=== PATIENT | male | born 1990 | race Caucasian/White ===

== ENCOUNTER 2016-11-16 05:48 | Emergency (ER) | payer SELFPAY ==
[2016-11-16] MEDS ORDERED: NORMAL SALINE 1000 ML 1,000 ML IV ONE (06:12)
[2016-11-16] MEDS ORDERED: ONDANSETRON HCL INJ/PF 4 MG/2 ML SDV IV ONE (06:12)
[2016-11-16 06:45] LABS: ABSOLUTE BASOPHILS # (AUTO) 0.1 10^3/uL (0.0-0.2); ABSOLUTE EOSINOPHILS # (AUTO) 0.2 10^3/uL (0.0-0.6); ABSOLUTE LYMPHOCYTES (AUTO) 2.6 10^3/uL (0.5-4.7); ABSOLUTE MONOCYTES (AUTO) 0.7 10^3/uL (0.1-1.4); ABSOLUTE NEUT (AUTO) 3.7 10^3/uL (1.7-8.2); BASOPHILS % (AUTO) 0.7 % (0-2); EOSINOPHILS % (AUTO) 2.7 % (0-6); HEMATOCRIT 44.7 % (37.9-51.0); HEMOGLOBIN 15.3 g/dL (13.5-17.0); HGB HCT DIFFERENCE 1.2; LYMPHOCYTES % (AUTO) 35.7 % (13-45); MEAN CORPUSCULAR HEMOGLOBIN 29.9 pg (27.0-33.4); MEAN CORPUSCULAR HGB CONC 34.2 g/dL (32.0-36.0); MEAN CORPUSCULAR VOLUME 88 fl (80-97); MONOCYTES % (AUTO) 10.1 % (3-13); RED BLOOD COUNT 5.11 10^6/uL (4.35-5.55); RED CELL DISTRIBUTION WIDTH 12.9 % (11.5-14.0); SEGMENTED NEUTROPHILS % (AUTO) 50.8 % (42-78); WHITE BLOOD COUNT 7.2 10^3/uL (4.0-10.5)
[2016-11-16 07:01] LABS: ALANINE AMINOTRANSFERASE 147 U/L (21-72); ALBUMIN 4.1 g/dL (3.5-5.0); ALKALINE PHOSPHATASE 64 U/L (38-126); ANION GAP 12 (5-19); ASPARTATE AMINO TRANSFERASE 61 U/L (17-59); BILIRUBIN,DIRECT 0.3 mg/dL (0.0-0.4); BILIRUBIN,TOTAL 0.6 mg/dL (0.2-1.3); BLOOD UREA NITROGEN 12 mg/dL (7-20); CALCIUM 9.2 mg/dL (8.4-10.2); CARBON DIOXIDE 26 mmol/L (22-30); CHLORIDE 104 mmol/L (98-107); CREATININE RESULT 0.71 mg/dL (0.52-1.25); GLUCOSE 95 mg/dL (75-110); LIPASE 243.1 U/L (23-300); POTASSIUM 4.3 mmol/L (3.6-5.0); SODIUM 141.8 mmol/L (137-145); TOTAL PROTEIN 7.1 g/dL (6.3-8.2)
--- NOTE | 2016-11-16 07:18 | ER Document Report ---
ED General - General Chief Complaint: Nausea/Vomiting/Diarrhea Stated Complaint: VOMITING Mode of Arrival: Ambulatory Information source: Patient Notes: 26 yr old male hx of hep c presents with complaints of nausea vomiting 5x and diarrhea. pt denies any blood, admits to mild cramping. TRAVEL OUTSIDE OF THE [place] IN LAST 30 DAYS: No - HPI Onset: Yesterday Onset/Duration: Sudden Quality of pain: Cramping Severity: Mild Pain Level: Denies Associated symptoms: Diarrhea, Nausea, Vomiting Exacerbated by: Denies Relieved by: Denies Similar symptoms previously: No Recently seen / treated by doctor: No - Related Data Allergies/Adverse Reactions: No Known Allergies Allergy (Verified 07/05/16 11:59) Past Medical History - Social History Smoking Status: Former Smoker Cigarette use (# per day): No Chew tobacco use (# tins/day): No Smoking Education Provided: No Frequency of alcohol use: Social Drug Abuse: Marijuana Family History: DM, Hypertension. denies: Arthritis, CAD, COPD, CVA, Hyperlipidemia, Malignancy, Thyroid Disfunction Patient has suicidal ideation: No Patient has homicidal ideation: No Renal/ Medical History: Denies: Hx Peritoneal Dialysis GI Medical History: Reports: Hx Hepatitis - hep c Psychiatric Medical History: Reports: Hx Attention Deficit Hyperactivity Disorder Infectious Medical History: Reports: Hx Hepatitis - hep c Past Surgical History: Reports: Hx Oral Surgery - Immunizations Immunizations up to date: No Hx Diphtheria, Pertussis, Tetanus Vaccination: No Review of Systems - Review of Systems Notes: REVIEW OF SYSTEMS: CONSTITUTIONAL : Denies fever, chills, or sweats. Denies recent illness. EENT: Denies eye, ear, throat, or mouth pain or symptoms. Denies nasal or sinus congestion or discharge. Denies throat, tongue, or mouth swelling or difficulty swallowing. CARDIOVASCULAR: Denies chest pain. Denies palpitations or racing or irregular heart beat. Denies ankle edema. RESPIRATORY: Denies cough, cold, or chest congestion. Denies shortness of breath, difficulty breathing, or wheezing. GASTROINTESTINAL: Nausea vomiting diarrhea GENITOURINARY: Denies difficulty urinating, painful urination, burning, frequency, blood in urine, or discharge. MUSCULOSKELETAL: Denies back or neck pain or stiffness. Denies joint pain or swelling. SKIN: Denies rash, lesions or sores. HEMATOLOGIC : Denies easy bruising or bleeding. LYMPHATIC: Denies swollen, enlarged glands. NEUROLOGICAL: Denies confusion or altered mental status. Denies passing out or loss of consciousness. Denies dizziness or lightheadedness. Denies headache. Denies weakness or paralysis or loss of use of either side. Denies problems with gait or speech. Denies sensory loss, numbness, or tingling. Denies seizures. PSYCHIATRIC: Denies anxiety or stress. Denies depression, suicidal ideation, or homicidal ideation. ALL OTHER SYSTEMS REVIEWED AND NEGATIVE. Dictation was performed using [employer] voice recognition software PHYSICAL EXAMINATION: GENERAL: Well-appearing, well-nourished and in no acute distress. HEAD: Atraumatic, normocephalic. EYES: Pupils equal round and reactive to light, extraocular movements intact, sclera anicteric, conjunctiva are normal. ENT: Nares patent, oropharynx clear without exudates. Moist mucous membranes. NECK: Normal range of motion, supple without lymphadenopathy LUNGS: Breath sounds clear to auscultation bilaterally and equal. No wheezes rales or rhonchi. HEART: Regular rate and rhythm without murmurs ABDOMEN: Soft, nontender, nondistended abdomen. No guarding, no rebound. No masses appreciated. Musculoskeletal: Normal range of motion, no pitting or edema. No cyanosis. NEUROLOGICAL: Cranial nerves grossly intact. Normal speech, normal gait. Normal sensory, motor exams PSYCH: Normal mood, normal affect. SKIN: Warm, Dry, normal turgor, no rashes or lesions noted. Physical Exam - Vital signs Vitals: Temp Pulse Resp BP Pulse Ox 97.5 F 82 18 131/88 H 98 11/16/16 05:58 11/16/16 05:58 11/16/16 05:58 11/16/16 05:58 11/16/16 05:58 Course - Re-evaluation Re-evalutation: 11/16/16 07:16 Patient looks extremely well, was given Zofran which resulted vomiting. Patient states he feels much better with IV fluids. Lab work does note mild elevation of liver enzymes consistent with history of hepatitis. Patient will be given GI follow-up regarding this After performing a Medical Screening Examination, I estimate there is LOW risk for ACUTE APPENDICITIS, BOWEL OBSTRUCTION, ACUTE CHOLECYSTITIS, PERFORATED DIVERTICULITIS, INCARCERATED HERNIA, PANCREATITIS, or PERFORATED ULCER, thus I consider the discharge disposition reasonable. Also, there is no evidence or peritonitis, sepsis, or toxicity. The patient and I have discussed the diagnosis and risks, and we agree with discharging home with close follow-up with the understanding that symptoms and presentations can change. We also discussed returning to the Emergency Department immediately if new or worsening symptoms occur. We have discussed the symptoms which are most concerning (e.g., bloody stool, fever, changing or worsening pain, intractable vomiting - standard verbal up date) that necessitate immediate return. - Vital Signs Vital signs: Temp Pulse Resp BP Pulse Ox 97.5 F 82 18 131/88 H 98 11/16/16 05:58 11/16/16 05:58 11/16/16 05:58 11/16/16 05:58 11/16/16 05:58 - Laboratory Result Diagrams: 11/16/16 06:25 11/16/16 06:25 Laboratory results interpreted by me: 11/16/16 06:25 AST 61 H ALT 147 H Discharge - Discharge Clinical Impression: Nausea vomiting and diarrhea, Elevated liver enzymes Condition: Stable Disposition: HOME, SELF-CARE Instructions: Diarrhea, Nonspecific ([facility]), Antinausea Medication ([facility]) Additional Instructions: Follow up with your physician tomorrow for further care or return to the ED IMMEDIATELY if symptoms worsen or new concerns occur. If you cannot afford to follow up with your primary care physician a list of low cost clinics have been provided at the end of your discharge papers as well. Prescriptions: Ondansetron [Zofran Odt 4 mg Tablet] 1 - 2 tab PO Q4H PRN #15 tab.rapdis PRN Reason: For Nausea/Vomiting Referrals: SHANNON METZGER MD [ACTIVE STAFF] - Follow up tomorrow
[2016-11-16 07:49] VITALS: BP 142/94
== END 2016-11-16 07:48 | disposition home or self-care (01) ==
LOC: ER 05:48
DX: R74.8 Abnormal levels of other serum enzymes (principal); R11.2 Nausea with vomiting, unspecified; R19.7 Diarrhea, unspecified; Z87.891 Personal history of nicotine dependence
CPT/HCPCS: 99284; 96374; 36415; 83690; 85025; 80053; J2405; J7030

== ENCOUNTER 2017-01-20 15:29 | Emergency (ER) | payer SELFPAY ==
[2017-01-20 15:53] VITALS: BP 153/101
--- NOTE | 2017-01-20 15:53 | ER Document Report ---
ED General - General Stated Complaint: DIARRHEA,ABDOMINAL PAIN,VOMITING Time Seen by Provider: 01/20/17 15:48 Mode of Arrival: Ambulatory Information source: Patient Notes: Patient presents emergency department with complaints of nausea vomiting diarrhea since Friday. Reports he has not vomited since this morning and reports diarrhea is better. He also reports that he called out sick for the last couple days and he needs a work note. Denies abdominal pain. Denies fever. Reports he ate at [employer] on Friday and started having the symptoms started. TRAVEL OUTSIDE OF THE [place] IN LAST 30 DAYS: No - HPI Onset: Other - friday Quality of pain: No pain Severity: None Pain Level: Denies Associated symptoms: Diarrhea, Nausea, Vomiting Exacerbated by: Denies Relieved by: Denies Similar symptoms previously: No Recently seen / treated by doctor: No - Related Data Allergies/Adverse Reactions: No Known Allergies Allergy (Verified 07/05/16 11:59) Past Medical History - General Information source: Patient - Social History Smoking Status: Current Every Day Smoker Cigarette use (# per day): Yes Frequency of alcohol use: Occasional Drug Abuse: Marijuana Occupation: [employer] Lives with: Friend Family History: DM, Hypertension. denies: Arthritis, CAD, COPD, CVA, Hyperlipidemia, Malignancy, Thyroid Disfunction Renal/ Medical History: Denies: Hx Peritoneal Dialysis GI Medical History: Reports: Hx Hepatitis - hep c Psychiatric Medical History: Reports: Hx Attention Deficit Hyperactivity Disorder Infectious Medical History: Reports: Hx Hepatitis - hep c Past Surgical History: Reports: Hx Oral Surgery - Immunizations Immunizations up to date: No Hx Diphtheria, Pertussis, Tetanus Vaccination: No Review of Systems - Review of Systems Notes: Review HPI for review of systems., All other systems negative Physical Exam - Vital signs Vitals: Temp Pulse Resp BP Pulse Ox 98.0 F 101 H 18 153/101 H 99 01/20/17 15:52 01/20/17 15:52 01/20/17 15:52 01/20/17 15:52 01/20/17 15:52 - Notes Notes: PHYSICAL EXAMINATION: GENERAL: Well-appearing and in no acute distress HEAD: Atraumatic, normocephalic. EYES: Pupils equal round extraocular movements intact, sclera anicteric, conjunctiva are normal. ENT: nares patent, . Moist mucous membranes. NECK: Normal range of motion, supple without lymphadenopathy LUNGS: CTAB and equal. No wheezes rales or rhonchi. HEART: Regular rate and rhythm without murmurs ABDOMEN: Soft, no tenderness. No guarding, no rebound EXTREMITIES: Normal range of motion, no pitting edema. No cyanosis. NEUROLOGICAL: Cranial nerves grossly intact. Normal sensory/motor exams. PSYCH: Normal mood, normal affect. SKIN: Warm, Dry, normal turgor, no rashes or lesions noted Course - Re-evaluation Re-evalutation: 01/20/17 lft slightly elevated. pt was doing great upon discharge. no further vomiting/ diarrhea. pt was instructed to return for concerns. - Vital Signs Vital signs: Temp Pulse Resp BP Pulse Ox 98.0 F 101 H 18 153/101 H 99 01/20/17 15:52 01/20/17 15:52 01/20/17 15:52 01/20/17 15:52 01/20/17 15:52 - Laboratory Result Diagrams: 01/20/17 16:04 01/20/17 16:04 Laboratory results interpreted by me: 01/20/17 16:04 AST 85 H ALT 185 H Discharge - Discharge Clinical Impression: Nausea vomiting and diarrhea, Elevated blood pressure reading Condition: Stable Disposition: HOME, SELF-CARE Instructions: Diarrhea, Nonspecific ([facility]), Vomiting ([facility]) Additional Instructions: *You have been evaluated for nausea/vomiting/diarrhea *Over the counter anti-diarrheal as indicated *Ensure adequate fluid intake as discussed to prevent dehydration *Follow up with a primary care provider within 5 days for recheck *Return to ED for worsening condition, changes, needs, concerns Monitor your blood pressure. Your blood pressure was elevated today. This may be because you were anxious, in pain or because you need medication. It is important to follow up with your primary care provider for full evaluation. Forms: Elevated Blood Pressure, Return to Work
[2017-01-20 16:18] LABS: ABSOLUTE BASOPHILS # (AUTO) 0.1 10^3/uL (0.0-0.2); ABSOLUTE EOSINOPHILS # (AUTO) 0.1 10^3/uL (0.0-0.6); ABSOLUTE LYMPHOCYTES (AUTO) 2.4 10^3/uL (0.5-4.7); ABSOLUTE MONOCYTES (AUTO) 0.7 10^3/uL (0.1-1.4); ABSOLUTE NEUT (AUTO) 5.2 10^3/uL (1.7-8.2); BASOPHILS % (AUTO) 0.8 % (0-2); EOSINOPHILS % (AUTO) 0.9 % (0-6); HEMATOCRIT 46.9 % (37.9-51.0); HGB HCT DIFFERENCE 1.1; MEAN CORPUSCULAR HEMOGLOBIN 29.8 pg (27.0-33.4); MEAN CORPUSCULAR VOLUME 88 fl (80-97); MONOCYTES % (AUTO) 8.2 % (3-13); RED BLOOD COUNT 5.35 10^6/uL (4.35-5.55); RED CELL DISTRIBUTION WIDTH 12.9 % (11.5-14.0); SEGMENTED NEUTROPHILS % (AUTO) 62.1 % (42-78); WHITE BLOOD COUNT 8.4 10^3/uL (4.0-10.5)
[2017-01-20 16:20] LABS: APPEARANCE,URINE SLIGHTLY-CLOUDY; BILIRUBIN,URINE NEGATIVE (NEGATIVE); GLUCOSE, URINE NEGATIVE (NEGATIVE); KETONES,URINE NEGATIVE (NEGATIVE); LEUKOCYTE ESTERASE,URINE NEGATIVE (NEGATIVE); NITRITE,URINE NEGATIVE (NEGATIVE); PROTEIN,URINE NEGATIVE (NEGATIVE); URINE SPECIFIC GRAVITY 1.016; UROBILINOGEN,URINE NEGATIVE mg/dL (<2.0)
[2017-01-20 16:35] LABS: ALANINE AMINOTRANSFERASE 185 U/L (21-72); ALBUMIN 4.5 g/dL (3.5-5.0); ALKALINE PHOSPHATASE 62 U/L (38-126); ANION GAP 11 (5-19); ASPARTATE AMINO TRANSFERASE 85 U/L (17-59); BILIRUBIN,DIRECT 0.3 mg/dL (0.0-0.4); BILIRUBIN,TOTAL 0.6 mg/dL (0.2-1.3); BLOOD UREA NITROGEN 9 mg/dL (7-20); CALCIUM 9.9 mg/dL (8.4-10.2); CARBON DIOXIDE 28 mmol/L (22-30); CHLORIDE 100 mmol/L (98-107); CREATININE RESULT 0.76 mg/dL (0.52-1.25); GLUCOSE 103 mg/dL (75-110); POTASSIUM 4.2 mmol/L (3.6-5.0); SODIUM 139.3 mmol/L (137-145); TOTAL PROTEIN 7.6 g/dL (6.3-8.2)
== END 2017-01-20 16:30 | disposition home or self-care (01) ==
LOC: ER 15:29
DX: R11.2 Nausea with vomiting, unspecified (principal); R19.7 Diarrhea, unspecified; F17.210 Nicotine dependence, cigarettes, uncomplicated; R03.0 Elevated blood-pressure reading, without diagnosis of hypertension; Z82.49 Family history of ischemic heart disease and other diseases of the circulatory system; Z86.19 Personal history of other infectious and parasitic diseases
CPT/HCPCS: 36415; 80053; 81001; 85025; 99284

== ENCOUNTER 2017-03-16 11:35 | Emergency (ER) | payer SELFPAY ==
[2017-03-16 12:02] VITALS: BP 145/83
--- NOTE | 2017-03-16 13:03 | RADIOLOGY REPORT (SQ) ---
EXAM DESCRIPTION: CHEST PA/LAT COMPLETED DATE/TIME: 03/16/2017 12:55 pm REASON FOR STUDY: chest wall pain COMPARISON: None. EXAM PARAMETERS: NUMBER OF VIEWS: two views TECHNIQUE: Digital Frontal and Lateral radiographic views of the chest acquired. RADIATION DOSE: NA LIMITATIONS: none FINDINGS: LUNGS AND PLEURA: No opacities, masses or pneumothorax. No pleural effusion. MEDIASTINUM AND HILAR STRUCTURES: No masses or contour abnormalities. HEART AND VASCULAR STRUCTURES: Heart normal size. No evidence for failure. BONES: No acute findings. HARDWARE: None in the chest. OTHER: No other significant finding. IMPRESSION: NO SIGNIFICANT RADIOGRAPHIC FINDING IN THE CHEST. TECHNICAL DOCUMENTATION: JOB ID: [id number] [employer]- All Rights Reserved
--- NOTE | 2017-03-16 13:11 | ER Document Report ---
ED General - General Chief Complaint: Chest Wall Injury Stated Complaint: PAINFUL KNOT ON CHEST/ABDOMEN Time Seen by Provider: 03/16/17 12:23 Notes: Patient is a 26-year-old male who presents emergency department complaining of tender area at the base of his xiphoid process for the past 2 days. Patient states that after work he came home and noticed a small bump on his abdomen that was nontender woke up the next day it was larger and then states that today has been causing him some discomfort with deep breaths and improves with exhaling. Patient denies any trauma. Patient states that the area is tender to deep palpation otherwise does not bother him. He states it is bigger at the end of his shift at work. 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 Admits to a history of GERD and takes over-the- counter Tums as needed. Past medical history significant for history of IV drug use with a history of hep C. Patient states that he has been clean for the past 3 years TRAVEL OUTSIDE OF THE [place] IN LAST 30 DAYS: No - Related Data Allergies/Adverse Reactions: No Known Allergies Allergy (Verified 03/16/17 12:02) Past Medical History - Social History Smoking Status: Current Every Day Smoker Family History: DM, Hypertension. denies: Arthritis, CAD, COPD, CVA, Hyperlipidemia, Malignancy, Thyroid Disfunction Patient has suicidal ideation: No Patient has homicidal ideation: No Renal/ Medical History: Denies: Hx Peritoneal Dialysis GI Medical History: Reports: Hx Hepatitis - hep c Psychiatric Medical History: Reports: Hx Attention Deficit Hyperactivity Disorder Infectious Medical History: Reports: Hx Hepatitis - hep c Past Surgical History: Reports: Hx Oral Surgery - Immunizations Immunizations up to date: No Hx Diphtheria, Pertussis, Tetanus Vaccination: No Review of Systems - Review of Systems Notes: REVIEW OF SYSTEMS: CONSTITUTIONAL : Denies fever, chills, or sweats. Denies recent illness. EENT: Denies eye, ear, throat, or mouth pain or symptoms. Denies nasal or sinus congestion or discharge. Denies throat, tongue, or mouth swelling or difficulty swallowing. CARDIOVASCULAR: Denies chest pain. Denies palpitations or racing or irregular heart beat. Denies ankle edema. RESPIRATORY: Denies cough, cold, or chest congestion. Denies shortness of breath, difficulty breathing, or wheezing. GASTROINTESTINAL: See HPI. Denies abdominal pain or distention. Denies nausea , vomiting, or diarrhea. Denies blood in vomitus, stools, or per rectum. Denies black, tarry stools. Denies constipation. SKIN: Denies rash, lesions or sores. HEMATOLOGIC : Denies easy bruising or bleeding. LYMPHATIC: Denies swollen, enlarged glands. NEUROLOGICAL: Denies confusion or altered mental status. Denies passing out or loss of consciousness. Denies dizziness or lightheadedness. Denies headache. Denies weakness or paralysis or loss of use of either side. Denies problems with gait or speech. Denies sensory loss, numbness, or tingling. Denies seizures. PSYCHIATRIC: Denies anxiety or stress. Denies depression, suicidal ideation, or homicidal ideation. ALL OTHER SYSTEMS REVIEWED AND NEGATIVE. Dictation was performed using [employer] voice recognition software Physical Exam - Vital signs Vitals: Temp Pulse Resp BP Pulse Ox 98.5 F 75 16 145/83 H 99 03/16/17 11:57 03/16/17 11:57 03/16/17 11:57 03/16/17 11:57 03/16/17 11:57 - Notes Notes: PHYSICAL EXAM GENERAL: Alert, interacts well. HEAD: Normocephalic, atraumatic. EYES: Pupils equal, round, and reactive to light. Extraocular movements intact. ENT: Oral mucosa moist, tongue midline. NECK: Full range of motion. Supple. Trachea midline. LUNGS: Clear to auscultation bilaterally, no wheezes, rales, or rhonchi. No respiratory distress. HEART: Regular rate and rhythm. No murmurs, gallops, or rubs. ABDOMEN: Soft, nondistended, nontender. Palpable, reducible bulge below the xiphoid process with minimal tenderness to palpation no evidence of overlying erythema, induration no guarding, rebound, or rigidity.. Bowel sounds present in all 4 quadrants. EXTREMITIES: Moves all 4 extremities spontaneously. No edema, radial and dorsalis pedis pulses 2/4 bilaterally. No cyanosis. NEUROLOGICAL: Alert and oriented x4. Normal speech. PSYCH: Normal affect, normal mood. SKIN: Warm, dry, normal turgor. No rashes or lesions noted. Course - Re-evaluation Re-evalutation: 03/16/17 13:57 Patient is a 26-year-old male who is hemodynamic stable, no acute distress and afebrile. Presentation and exam consistent with a non-incarcerated epigastric hernia. Patient educated on signs and symptoms to be aware of indicating return to the emergency department otherwise can follow-up with primary care. After performing a Medical Screening Examination, I estimate there is LOW risk for ACUTE APPENDICITIS, BOWEL OBSTRUCTION, ACUTE CHOLECYSTITIS, PERFORATED DIVERTICULITIS, INCARCERATED HERNIA, PANCREATITIS, PERFORATED ULCER, thus I consider the discharge disposition reasonable. Also, there is no evidence or peritonitis, sepsis, or toxicity. I have reevaluated this patient multiple times and no significant life threatening changes are noted. The patient and I have discussed the diagnosis and risks, and we agree with discharging home with close follow-up with the understanding that symptoms and presentations can change. We also discussed returning to the Emergency Department immediately if new or worsening symptoms occur. We have discussed the symptoms which are most concerning (e.g., bloody stool, fever, changing or worsening pain, vomiting) that necessitate immediate return. - Vital Signs Vital signs: Temp Pulse Resp BP Pulse Ox 98.5 F 75 16 145/83 H 99 03/16/17 11:57 03/16/17 11:57 03/16/17 11:57 03/16/17 11:57 03/16/17 11:57 - Diagnostic Test Radiology reviewed: Image reviewed, Reports reviewed Discharge - Discharge Clinical Impression: Epigastric hernia Condition: Good Disposition: HOME, SELF-CARE Instructions: Hernia ([facility]) Additional Instructions: Your symptoms today are consistent with an epigastric hernia. Please follow-up with a robotic machine operator listed on this paperwork Please return to the emergency department if you are not able to tolerate fluids or solids, severe pain or if your hernia is not reducible You can also start taking [id number] Pepcid for your esophageal reflux. Please be sure to review proper lifting technique. Make sure that you were exhaling as you lift anything heavy. You should also start taking a stool softener such as Colace/Docusate which is available [id number] so that you do not have to strain when you are having a bowel movement. Only take this medication your bowel movements are hard. Forms: Return to Work Referrals: [facility] [Provider Group] - Follow up as needed WILBER ERIC MD [ACTIVE STAFF] - Follow up as needed (Gastroenterology)
== END 2017-03-16 13:25 | disposition home or self-care (01) ==
LOC: ER 11:35
DX: K43.9 Ventral hernia without obstruction or gangrene (principal); K21.9 Gastro-esophageal reflux disease without esophagitis; F17.200 Nicotine dependence, unspecified, uncomplicated
CPT/HCPCS: 71020; 99283

== ENCOUNTER 2017-05-25 13:48 | Emergency (ER) | payer SELFPAY ==
[2017-05-25 14:16] VITALS: BP 133/90
[2017-05-25] MEDS ORDERED: MORPHINE SULFATE 10 MG/ML INJ IV ONE (14:32)
[2017-05-25] MEDS ORDERED: ONDANSETRON HCL INJ/PF 4 MG/2 ML SDV IV ONE (14:32)
[2017-05-25] MEDS ORDERED: NORMAL SALINE 1000 ML 1,000 ML IV PRN (14:32)
--- NOTE | 2017-05-25 14:35 | ER Document Report ---
ED Medical Screen (RME) - General Chief Complaint: Abdominal Pain Stated Complaint: SHORTNESS OF BREATH Time Seen by Provider: 05/25/17 14:22 Mode of Arrival: Ambulatory Information source: Patient TRAVEL OUTSIDE OF THE [place] IN LAST 30 DAYS: No - HPI Patient complains to provider of: Upper abdominal pain, radiating into chest with shortness of breath Onset: This morning Onset/Duration: Sudden Notes: 05/25/17 14:34 Patient is a 26-year-old male presenting to the emergency room today complaining of sensation of a lump in his epigastric region with pain in this area, that radiates up into his chest, when he woke up this morning he felt like he could not take a deep breath, he also feels his heart racing, has a history of epigastric abdominal pain with nausea and vomiting on a regular basis , he admits to drinking yesterday evening, as well as taking half a pill of Adderall that belonged to a friend of his, he also frequently smokes marijuana - Related Data Allergies/Adverse Reactions: No Known Allergies Allergy (Verified 05/25/17 14:12) Past Medical History - Social History Chew tobacco use (# tins/day): No Frequency of alcohol use: Occasional Drug Abuse: Marijuana, Prescription drugs Renal/ Medical History: Denies: Hx Peritoneal Dialysis GI Medical History: Reports: Hx Gastroesophageal Reflux Disease, Hx Hepatitis - hep c Psychiatric Medical History: Reports: Hx Attention Deficit Hyperactivity Disorder Infectious Medical History: Reports: Hx Hepatitis - hep c Past Surgical History: Reports: Hx Oral Surgery - Immunizations Immunizations up to date: No Hx Diphtheria, Pertussis, Tetanus Vaccination: No History of Influenza Vaccine for 05/2017 - 10/2017 Season: No Physical Exam - Vital signs Vitals: Temp Pulse Resp BP Pulse Ox 97.8 F 114 H 24 H 133/90 H 100 05/25/17 14:12 05/25/17 14:12 05/25/17 14:12 05/25/17 14:12 05/25/17 14:12 Course - Vital Signs Vital signs: Temp Pulse Resp BP Pulse Ox 97.8 F 114 H 24 H 133/90 H 100 05/25/17 14:12 05/25/17 14:12 05/25/17 14:12 05/25/17 14:12 05/25/17 14:12
[2017-05-25 15:30] LABS: APPEARANCE,URINE CLEAR; BILIRUBIN,URINE NEGATIVE (NEGATIVE); GLUCOSE, URINE NEGATIVE (NEGATIVE); KETONES,URINE 20 mg/dL (NEGATIVE); LEUKOCYTE ESTERASE,URINE NEGATIVE (NEGATIVE); NITRITE,URINE NEGATIVE (NEGATIVE); PROTEIN,URINE NEGATIVE (NEGATIVE); URINE SPECIFIC GRAVITY 1.021
--- NOTE | 2017-05-26 08:09 | EKG REPORT ---
SEVERITY:- OTHERWISE NORMAL ECG - SINUS TACHYCARDIA : Confirmed by: Cali Garcia 26-May-2017 08:08:48
== END 2017-05-25 15:20 | disposition left against medical advice (07) ==
LOC: ER 13:48
DX: R10.10 Upper abdominal pain, unspecified (principal); R06.02 Shortness of breath; K21.9 Gastro-esophageal reflux disease without esophagitis; Z86.19 Personal history of other infectious and parasitic diseases
CPT/HCPCS: 81001; 87086; 93005; 93010; 99281

== ENCOUNTER 2017-09-28 18:30 | Emergency (ER) | payer SELFPAY ==
[2017-09-28 18:41] VITALS: BP 138/86
--- NOTE | 2017-09-28 19:49 | ER Document Report ---
ED General - General Chief Complaint: Abdominal Pain Stated Complaint: UPPER ABDOMINAL PAIN Time Seen by Provider: 09/28/17 19:36 Mode of Arrival: Ambulatory Information source: Patient Notes: 27 yr old male presents with epigastric hernia of atleast 8 month duration that hurts most when he wakes up laying on his side. pt notes that when he sits up the pain is gone. he denies any fevers or chills, dneies any nausea or vomiting. pt has normal bm , last was today TRAVEL OUTSIDE OF THE [place] IN LAST 30 DAYS: No - HPI Onset: Other Onset/Duration: Waxing and waning Quality of pain: Achy Severity: Mild Pain Level: 1 Associated symptoms: Other Exacerbated by: Denies Relieved by: Denies Similar symptoms previously: Yes Recently seen / treated by doctor: Yes - Related Data Allergies/Adverse Reactions: No Known Allergies Allergy (Verified 05/25/17 14:12) Past Medical History - Social History Smoking Status: Former Smoker Cigarette use (# per day): No Chew tobacco use (# tins/day): No Smoking Education Provided: No Frequency of alcohol use: None Drug Abuse: Marijuana Family History: DM, Hypertension. denies: Arthritis, CAD, COPD, CVA, Hyperlipidemia, Malignancy, Thyroid Disfunction Patient has suicidal ideation: No Patient has homicidal ideation: No Renal/ Medical History: Denies: Hx Peritoneal Dialysis GI Medical History: Reports: Hx Gastroesophageal Reflux Disease, Hx Hepatitis - hep c Psychiatric Medical History: Reports: Hx Attention Deficit Hyperactivity Disorder Infectious Medical History: Reports: Hx Hepatitis - hep c Past Surgical History: Reports: Hx Oral Surgery - Immunizations Immunizations up to date: No Hx Diphtheria, Pertussis, Tetanus Vaccination: No Review of Systems - Review of Systems Notes: REVIEW OF SYSTEMS: CONSTITUTIONAL : Denies fever, chills, or sweats. Denies recent illness. EENT: Denies eye, ear, throat, or mouth pain or symptoms. Denies nasal or sinus congestion or discharge. Denies throat, tongue, or mouth swelling or difficulty swallowing. CARDIOVASCULAR: Denies chest pain. Denies palpitations or racing or irregular heart beat. Denies ankle edema. RESPIRATORY: Denies cough, cold, or chest congestion. Denies shortness of breath, difficulty breathing, or wheezing. GASTROINTESTINAL: epigastric abd pain GENITOURINARY: Denies difficulty urinating, painful urination, burning, frequency, blood in urine, or discharge. MUSCULOSKELETAL: Denies back or neck pain or stiffness. Denies joint pain or swelling. SKIN: Denies rash, lesions or sores. HEMATOLOGIC : Denies easy bruising or bleeding. LYMPHATIC: Denies swollen, enlarged glands. NEUROLOGICAL: Denies confusion or altered mental status. Denies passing out or loss of consciousness. Denies dizziness or lightheadedness. Denies headache. Denies weakness or paralysis or loss of use of either side. Denies problems with gait or speech. Denies sensory loss, numbness, or tingling. Denies seizures. PSYCHIATRIC: Denies anxiety or stress. Denies depression, suicidal ideation, or homicidal ideation. ALL OTHER SYSTEMS REVIEWED AND NEGATIVE. Dictation was performed using [employer] voice recognition software PHYSICAL EXAMINATION: GENERAL: Well-appearing, well-nourished and in no acute distress. HEAD: Atraumatic, normocephalic. EYES: Pupils equal round and reactive to light, extraocular movements intact, sclera anicteric, conjunctiva are normal. ENT: Nares patent, oropharynx clear without exudates. Moist mucous membranes. NECK: Normal range of motion, supple without lymphadenopathy LUNGS: Breath sounds clear to auscultation bilaterally and equal. No wheezes rales or rhonchi. HEART: Regular rate and rhythm without murmurs ABDOMEN: Soft, tender i nthe epigastric region, small protrusion noted, no obvious hernia strangulation Musculoskeletal: Normal range of motion, no pitting or edema. No cyanosis. NEUROLOGICAL: Cranial nerves grossly intact. Normal speech, normal gait. Normal sensory, motor exams PSYCH: Normal mood, normal affect. SKIN: Warm, Dry, normal turgor, no rashes or lesions noted. Physical Exam - Vital signs Vitals: Temp Pulse Resp BP Pulse Ox 98.2 F 70 18 138/86 H 100 09/28/17 18:40 09/28/17 18:40 09/28/17 18:40 09/28/17 18:40 09/28/17 18:40 Course - Re-evaluation Re-evalutation: 09/28/17 20:16 Given the patient's symptoms are waxing and waning are not associated with any vomiting of food and is able to eat with no difficulty very low suspicion for an obstruction secondary to this hernia, patient will be given follow-up with her surgeons as well as [facility] as well as information regarding low-cost care. Patient will be given pain control is otherwise stable for discharge After performing a Medical Screening Examination, I estimate there is LOW risk for ACUTE APPENDICITIS, BOWEL OBSTRUCTION, ACUTE CHOLECYSTITIS, PERFORATED DIVERTICULITIS, INCARCERATED HERNIA, PANCREATITIS, TESTICULAR TORSION or PERFORATED ULCER, thus I consider the discharge disposition reasonable. Also, there is no evidence or peritonitis, sepsis, or toxicity. I have reevaluated this patient multiple times and no significant life threatening changes are noted. The patient and I have discussed the diagnosis and risks, and we agree with discharging home with close follow-up with the understanding that symptoms and presentations can change. We also discussed returning to the Emergency Department immediately if new or worsening symptoms occur. We have discussed the symptoms which are most concerning (e.g., bloody stool, fever, changing or worsening pain, intractable vomiting - standard verbal up date) that necessitate immediate return. - Vital Signs Vital signs: Temp Pulse Resp BP Pulse Ox 98.2 F 70 18 138/86 H 100 09/28/17 18:40 09/28/17 18:40 09/28/17 18:40 09/28/17 18:40 09/28/17 18:40 Discharge - Discharge Clinical Impression: Epigastric hernia HTN (hypertension) Qualifiers: Hypertension type: essential hypertension Qualified Code(s): I10 - Essential ( primary) hypertension Condition: Stable Disposition: HOME, SELF-CARE Instructions: Hernia ([facility]) Additional Instructions: Please contact [facility] [phone] for information regarding surgical clinic Prescriptions: Hydrocodone/Acetaminophen [[place] 5-325 mg Tablet] 1 tab PO Q6 #14 tablet Forms: Return to Work Referrals: JEB QUICK MD [ACTIVE STAFF] - Follow up tomorrow
== END 2017-09-28 19:53 | disposition home or self-care (01) ==
LOC: ER 18:30
DX: K43.9 Ventral hernia without obstruction or gangrene (principal); I10 Essential (primary) hypertension; Z87.891 Personal history of nicotine dependence
CPT/HCPCS: 99283

== ENCOUNTER 2018-03-15 10:12 | Emergency (ER) | payer SELFPAY ==
[2018-03-15] MEDS ORDERED: MAG HYDROX/AL HYDROX/SIMETH SUSP 30 ML UDCUP PO ONE (10:46)
[2018-03-15] MEDS ORDERED: METOCLOPRAMIDE HCL ORAL SOLN 10 MG/10 ML UDCUP PO ONE (10:46)
[2018-03-15] MEDS ORDERED: LIDOCAINE 2% VISCOUS SOLN 20 ML UDCUP PO ONE (10:46)
--- NOTE | 2018-03-15 10:49 | ER Document Report ---
ED Medical Screen (RME) - General Mode of Arrival: Ambulatory Information source: Patient TRAVEL OUTSIDE OF THE [place] IN LAST 30 DAYS: No <BRITT DORSEY - Last Filed: 03/15/18 11:08> <BRENT BOLTON - Last Filed: 03/15/18 11:13> - General Chief Complaint: Abdominal Pain Stated Complaint: ABDOMINAL PAIN Time Seen by Provider: 03/15/18 10:40 Notes: Patient is a 27 year old male with hepatitis C and a hiatial hernia presents to the emergency department complaining of abdominal pain onset this morning. Patient describes his pain as excruciating sharp and stabbing pain that was exacerbated during a bowel movement this morning and coughing. Patinet mentions eating a fried chicken wrap and a deli sandwich yesterday. GENERAL: Alert, interacts well. No acute distress. HEAD: Normocephalic, Atraumatic. NECK: Full range of motion. Supple. Trachea midline. LUNGS: Clear to auscultation bilaterally, no wheezes, rales, or rhonchi. No respiratory distress. HEART: Regular rate and rhythm. No murmurs, gallops, or rubs. ABDOMEN: Soft, epigastric tenderness to palpation. Non-distended. Bowel sounds present in all 4 quadrants. EXTREMITIES: Moves all four extremities spontaneously. PSYCH: Normal affect, normal mood. I have greeted and performed a rapid initial assessment of this patient. A comprehensive ED assessment and evaluation of the patient, analysis of test results and completion of the medical decision making process will be conducted by additional ED providers. (BRITT DORSEY) - Related Data Allergies/Adverse Reactions: No Known Allergies Allergy (Verified 03/15/18 10:14) Past Medical History - General Information source: Patient - Social History Cigarette use (# per day): Yes Chew tobacco use (# tins/day): No Frequency of alcohol use: Occasional Drug Abuse: Heroin - Quit 4-5 years ago, Marijuana Family history: Reviewed & Not Pertinent Renal/ Medical History: Denies: Hx Peritoneal Dialysis GI Medical History: Reports: Hx Gastroesophageal Reflux Disease, Hx Hepatitis - hep c Psychiatric Medical History: Reports: Hx Attention Deficit Hyperactivity Disorder Infectious Medical History: Reports: Hx Hepatitis - hep c Past Surgical History: Reports: Hx Oral Surgery - Immunizations Immunizations up to date: No Hx Diphtheria, Pertussis, Tetanus Vaccination: No History of Influenza Vaccine for 05/2017 - 10/2017 Season: No <BRITT DORSEY - Last Filed: 03/15/18 11:08> - Vital signs Vitals: Temp Pulse Resp BP Pulse Ox 97.9 F 74 16 134/90 H 98 03/15/18 10:21 03/15/18 10:21 03/15/18 10:21 03/15/18 10:21 03/15/18 10:21 Course - Laboratory Result Diagrams: 03/15/18 10:55 03/15/18 10:55 <BRENT BOLTON - Last Filed: 03/15/18 11:13> - Vital Signs Vital signs: Temp Pulse Resp BP Pulse Ox 97.9 F 74 16 134/90 H 98 03/15/18 10:21 03/15/18 10:21 03/15/18 10:21 03/15/18 10:21 03/15/18 10:21
[2018-03-15] MEDS ORDERED: FAMOTIDINE 20 MG TABLET PO ONE (11:15)
[2018-03-15 11:22] LABS: ABSOLUTE BASOPHILS # (AUTO) 0.1 10^3/uL (0.0-0.2); ABSOLUTE EOSINOPHILS # (AUTO) 0.3 10^3/uL (0.0-0.6); ABSOLUTE LYMPHOCYTES (AUTO) 2.3 10^3/uL (0.5-4.7); ABSOLUTE MONOCYTES (AUTO) 0.8 10^3/uL (0.1-1.4); ABSOLUTE NEUT (AUTO) 4.8 10^3/uL (1.7-8.2); EOSINOPHILS % (AUTO) 3.4 % (0-6); HEMATOCRIT 45.8 % (37.9-51.0); HEMOGLOBIN 16.1 g/dL (13.5-17.0); LYMPHOCYTES % (AUTO) 27.6 % (13-45); MEAN CORPUSCULAR HEMOGLOBIN 31.2 pg (27.0-33.4); MEAN CORPUSCULAR HGB CONC 35.1 g/dL (32.0-36.0); MEAN CORPUSCULAR VOLUME 89 fl (80-97); MONOCYTES % (AUTO) 9.8 % (3-13); PLATELET COUNT 301 10^3/uL (150-450); RED BLOOD COUNT 5.16 10^6/uL (4.35-5.55); RED CELL DISTRIBUTION WIDTH 13.8 % (11.5-14.0); SEGMENTED NEUTROPHILS % (AUTO) 58.2 % (42-78); TOTAL CELLS COUNTED % (AUTO) 100 %; WHITE BLOOD COUNT 8.3 10^3/uL (4.0-10.5)
[2018-03-15 11:47] LABS: ALANINE AMINOTRANSFERASE 237 U/L (21-72); ALBUMIN 4.6 g/dL (3.5-5.0); ALKALINE PHOSPHATASE 77 U/L (38-126); ANION GAP 14 (5-19); ASPARTATE AMINO TRANSFERASE 91 U/L (17-59); BILIRUBIN,DIRECT 0.3 mg/dL (0.0-0.4); BILIRUBIN,TOTAL 0.4 mg/dL (0.2-1.3); BLOOD UREA NITROGEN 12 mg/dL (7-20); CARBON DIOXIDE 25 mmol/L (22-30); CHLORIDE 105 mmol/L (98-107); GLUCOSE 103 mg/dL (75-110); LIPASE 157.6 U/L (23-300); POTASSIUM 4.3 mmol/L (3.6-5.0); SODIUM 144.2 mmol/L (137-145); TOTAL PROTEIN 7.9 g/dL (6.3-8.2)
--- NOTE | 2018-03-15 12:14 | ER Document Report ---
ED General - General Chief Complaint: Abdominal Pain Stated Complaint: ABDOMINAL PAIN Time Seen by Provider: 03/15/18 10:40 Mode of Arrival: Ambulatory TRAVEL OUTSIDE OF THE [place] IN LAST 30 DAYS: No - HPI Notes: 27-year-old male presents with abdominal pain. Patient describes onset rapidly of epigastric pain while having a bowel movement. He was unsuccessful his bowel movement and the pain later abated but came back in the emergency department. Some nausea but no vomiting. He has had no dark tarry stools, no heavy use of NSAIDs or aspirin. He states he does not drink much alcohol and has not had any alcohol recently. No history of biliary tract disease. No history of liver disease. No other modifying factors, no other associated symptoms, no other provocative or palliative factors. Rapid onset, nonradiating except as described. Patient seen by the physician in triage and comes with labs ordered and medications given. 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 denies: Arthritis, CAD, COPD, CVA, Hyperlipidemia, Malignancy, Thyroid Disfunction Patient has suicidal ideation: No Patient has homicidal ideation: No - Medical History Medical History: Negative Renal/ Medical History: Denies: Hx Peritoneal Dialysis GI Medical History: Reports: Hx Gastroesophageal Reflux Disease, Hx Hepatitis - hep c Psychiatric Medical History: Reports: Hx Attention Deficit Hyperactivity Disorder Infectious Medical History: Reports: Hx Hepatitis - hep c Past Surgical History: Reports: Hx Oral Surgery - Immunizations Immunizations up to date: No Hx Diphtheria, Pertussis, Tetanus Vaccination: No Review of Systems - Review of Systems Notes: Review of systems as in the history of present illness, otherwise negative x 10 systems. Physical Exam - Vital signs Vitals: Temp Pulse Resp BP Pulse Ox 97.9 F 74 16 134/90 H 98 03/15/18 10:21 03/15/18 10:21 03/15/18 10:21 03/15/18 10:21 03/15/18 10:21 - Notes Notes: General: Well developed . HEENT: Normocephalic, atraumatic. Pupils equal round reactive to light. No JVD. Chest: No trauma. Respiratory: Good air exchange, normal excursion. Cardiac: Regular rhythm. No murmurs or gallops. Abdomen: Soft, benign. On distracted examination, no abdominal tenderness is noted. Back: No asymmetry or gross abnormality. Motor: Grossly normal power and tone. Neurologic: Alert, nonfocal. Cranial nerves II-12 are intact. Sensation intact. Vascular: Well perfused. Normal peripheral pulses. Skin: No petechiae or purpura. Course - Re-evaluation Re-evalutation: 03/15/18 12:14 Relatively well-appearing 27-year-old male the after mentioned symptoms. Labs are currently pending. Consider biliary tract disease, pancreatitis, peptic ulcer disease, gastritis or other etiology. We will proceed with serial examination, labs, additional H2 kenneth. Reassess. 03/15/18 15:03 Labs reviewed, grossly unremarkable. However, noted to have some mild LFT elevations. Ultrasound was obtained to exclude biliary tract disease, this is normal. Patient is discharged home, follow-up closely with his outpatient physician. - Vital Signs Vital signs: Temp Pulse Resp BP Pulse Ox 97.7 F 70 12 112/86 H 97 03/15/18 13:11 03/15/18 13:11 03/15/18 13:11 03/15/18 13:11 03/15/18 13:11 - Laboratory Result Diagrams: 03/15/18 10:55 03/15/18 10:55 Laboratory results interpreted by me: 03/15/18 10:55 AST 91 H ALT 237 H Discharge - Discharge Clinical Impression: Abdominal pain Qualifiers: Abdominal location: unspecified location Qualified Code(s): R10.9 - Unspecified abdominal pain Disposition: HOME, SELF-CARE Instructions: Abdominal Pain ([facility]) Prescriptions: Omeprazole Magnesium [Prilosec Otc] 20 mg PO DAILY #30 tablet.dr Forms: Return to Work Referrals: SHANNON METZGER MD [ACTIVE STAFF] - Follow up as needed
--- NOTE | 2018-03-15 13:05 | RADIOLOGY REPORT (SQ) ---
EXAM DESCRIPTION: U/S ABDOMEN LIMITED W/O DOP COMPLETED DATE/TIME: 03/15/2018 12:21 pm REASON FOR STUDY: RUQ Pain COMPARISON: None. TECHNIQUE: Dynamic and static grayscale images acquired of the abdomen and recorded on PACS. Additio nal selected color Doppler and spectral images recorded. LIMITATIONS: None. FINDINGS: PANCREAS: No abnormality seen. LIVER: The liver measures 16.6 cm. The liver demonstrates normal echogenicity. LIVER VASCULATURE: Normal directional flow of the main portal vein and hepatic veins. GALLBLADDER: The gallbladder is normal. The gallbladder wall measures 1.5 mm which is normal. ULTRASOUND-DETECTED PACHECO'S SIGN: Negative. INTRAHEPATIC DUCTS AND COMMON DUCT: CBD measures 5.9 mm which is normal. Intrahepatic ducts normal c aliber. No filling defects. INFERIOR VENA CAVA: Normal flow. AORTA: The proximal abdominal aorta measures 2.2 cm in AP diameter. The mid abdominal aorta measures 2.2 cm in diameter. The distal abdominal aorta is 1.9 cm in AP diameter. . RIGHT KIDNEY: The right kidney measures 11.8 x 4.7 by 4.5 cm demonstrating normal echogenicity. IMPRESSION: NORMAL RIGHT UPPER QUADRANT ULTRASOUND. TECHNICAL DOCUMENTATION: JOB ID: [id number] 2010 [employer]- All Rights Reserved Reading location - IP/workstation name: [email or web address]
[2018-03-15 13:12] VITALS: BP 112/86
== END 2018-03-15 13:10 | disposition home or self-care (01) ==
LOC: ER 10:12
DX: R10.13 Epigastric pain (principal); R11.0 Nausea; F12.10 Cannabis abuse, uncomplicated; R79.89 Other specified abnormal findings of blood chemistry; F17.210 Nicotine dependence, cigarettes, uncomplicated
CPT/HCPCS: 99284; 36415; 83690; 85025; 80053; 76705; J3490

== ENCOUNTER 2018-04-11 15:50 | Emergency (ER) | payer SELFPAY ==
[2018-04-11 15:54] VITALS: BP 121/73
[2018-04-11] MEDS ORDERED: HYDROXYZINE PAMOATE 25 MG CAPSULE PO ONE (16:18)
[2018-04-11] MEDS ORDERED: NORMAL SALINE 1000 ML 1,000 ML IV ONE (16:18)
--- NOTE | 2018-04-11 20:57 | ER Document Report ---
ED General - General Chief Complaint: Shortness Of Breath Stated Complaint: POSSIBLE TREMORS Time Seen by Provider: 04/11/18 16:12 TRAVEL OUTSIDE OF THE [place] IN LAST 30 DAYS: No - HPI Patient complains to provider of: Shortness of breath some tremors Notes: Patient coming in for the above-stated symptoms states he was working when symptoms started. Patient denies any history of anxiety in the past states he does smoke and does drink however this is only socially. Patient denies any smoking or drinking recently. Denies any other past medical history. Patient is resting comfortably upon my evaluation does look slightly anxious - Related Data Allergies/Adverse Reactions: No Known Allergies Allergy (Verified 04/11/18 15:54) Past Medical History - Social History Smoking Status: Current Some Day Smoker Drug Abuse: Marijuana Family History: DM, Hypertension. denies: Arthritis, CAD, COPD, CVA, Hyperlipidemia, Malignancy, Thyroid Disfunction Patient has suicidal ideation: No Patient has homicidal ideation: No Renal/ Medical History: Denies: Hx Peritoneal Dialysis GI Medical History: Reports: Hx Gastroesophageal Reflux Disease, Hx Hepatitis - hep c Psychiatric Medical History: Reports: Hx Attention Deficit Hyperactivity Disorder Infectious Medical History: Reports: Hx Hepatitis - hep c Past Surgical History: Reports: Hx Oral Surgery - Immunizations Immunizations up to date: No Hx Diphtheria, Pertussis, Tetanus Vaccination: No Review of Systems - Review of Systems Constitutional: No symptoms reported EENT: No symptoms reported Cardiovascular: No symptoms reported Respiratory: No symptoms reported Gastrointestinal: No symptoms reported Genitourinary: No symptoms reported Male Genitourinary: No symptoms reported Musculoskeletal: No symptoms reported Skin: No symptoms reported Hematologic/Lymphatic: No symptoms reported Neurological/Psychological: Anxiety -: Yes All other systems reviewed and negative Physical Exam - Vital signs Vitals: Temp Pulse Resp BP Pulse Ox 97.5 F 96 20 121/73 100 04/11/18 15:53 04/11/18 15:53 04/11/18 15:53 04/11/18 15:53 04/11/18 15:53 Interpretation: Normal - General General appearance: Appears well, Alert - HEENT Head: Normocephalic, Atraumatic Eyes: Normal Pupils: PERRL - Respiratory Respiratory status: No respiratory distress Chest status: Nontender Breath sounds: Normal Chest palpation: Normal - Cardiovascular Rhythm: Regular Heart sounds: Normal auscultation Murmur: No - Abdominal Inspection: Normal Distension: No distension Bowel sounds: Normal Tenderness: Nontender Organomegaly: No organomegaly - Back Back: Normal, Nontender - Extremities General upper extremity: Normal inspection, Nontender, Normal color, Normal ROM , Normal temperature General lower extremity: Normal inspection, Nontender, Normal color, Normal ROM , Normal temperature, Normal weight bearing. No: Yisel's sign - Neurological Neuro grossly intact: Yes Cognition: Normal Orientation: AAOx4 [place] Coma Scale Eye Opening: Spontaneous [place] Coma Scale Verbal: Oriented [place] Coma Scale Motor: Obeys Commands [place] Coma Scale Total: 15 Speech: Normal Motor strength normal: LUE, RUE, LLE, RLE Sensory: Normal - Psychological Associated symptoms: Normal affect, Normal mood - Skin Skin Temperature: Warm Skin Moisture: Dry Skin Color: Normal Course - Re-evaluation Re-evalutation: 04/11/18 20:56 Physical examination not reveal any worrisome issues as we will perform laboratory studies to evaluate any underlying causes patient was to perform a urinalysis patient did not want by the pit office at the time I presume the patient was going for his urinalysis however later after trying to find the patient we were unable to locate him. Eventually patient was [place] patient never returned to the ER therefore we marked the patient has eloped. - Vital Signs Vital signs: Temp Pulse Resp BP Pulse Ox 97.5 F 96 20 121/73 100 04/11/18 15:53 04/11/18 15:53 04/11/18 15:53 04/11/18 15:53 04/11/18 15:53 Discharge - Discharge Clinical Impression: Anxiety Disposition: ELOPED
== END 2018-04-11 16:15 | disposition left against medical advice (07) ==
LOC: ER 15:50
DX: F41.9 Anxiety disorder, unspecified (principal); R06.02 Shortness of breath; R25.1 Tremor, unspecified; F17.200 Nicotine dependence, unspecified, uncomplicated
CPT/HCPCS: 99281

== ENCOUNTER 2018-04-16 07:45 | Emergency (ER) | payer SELFPAY ==
[2018-04-16] MEDS ORDERED: KETOROLAC TROMETHAMINE INJ/PF 30 MG/1 ML SDV IV ONE (09:34)
--- NOTE | 2018-04-16 09:35 | ER Document Report ---
Doctor's Note Notes: 04/16/18 09:34 HPI: 27-year-old male to the emergency department for evaluation of right upper quadrant pain. Patient has been seen multiple times for the same thing. States that he gets pain in the right abdomen and right chest and then gets short of breath and has a panic attack. Had to have EMS come and evaluate him a few days ago. Patient felt fine and subsequently did not come to the hospital. Woke up this morning with right upper quadrant pain in panic attack. Has had an ultrasound in the past. Had chest x-ray and workup and everything was unremarkable recently. Does have a history of hepatitis C as well as intravenous drug use but denies any IV drug use for approximately 4 years but has abused prescription narcotics recently. Past medical history: Drug abuse, hepatitis C Past surgical history: Denies any surgeries other than dental surgery Social history: Denies any alcohol or illicit drug use. Has a remote history of heroin abuse and prescription narcotic abuse. Does smoke cigarettes. Family history: Reviewed and unremarkable Review of systems: Constitutional: denies: Chills, Diaphoresis, Fever, Malaise, Weakness EENT: denies: Eye discharge, Blurred vision, Tearing, Double vision, Nose congestion, Nose discharge, Throat swelling, Mouth pain Cardiovascular: denies: Palpitations, Heart racing, Orthopnea, Dyspnea, Chest pain Respiratory: denies: Cough, Hurts to breathe, Wheezing, Shortness of breath Gastrointestinal: Has a history of hiatal hernia with right upper quadrant pain , no nausea or vomiting Genitourinary: denies: Burning, Dysuria, Discharge, Frequency, Flank pain, Hematuria Musculoskeletal: denies: Joint pain, Joint swelling, Muscle pain, Muscle stiffness, back pain Hematologic/Lymphatic: denies: Anemia, Easy bleeding, Easy bruising, Blood clots Neurological/Psychological: denies: Confusion, Dementia, Depression, Loss of consciousness. Does have a history of ADHD and drug abuse with frequent panic attacks Skin: No lesions, no masses, no skin breakdown, no abscesses Physical exam: General: Alert no acute distress HEENT: Atraumatic, normocephalic, pupils equal round react to light and accommodation, extraocular muscles are intact, nose is non tender, posterior pharynx is without erythema or exudate. Tongue is unremarkable Heart: Heart with regular rate and rhythm, no murmurs, no rubs, no clicks Lungs: Lungs clear to auscultation bilaterally, no wheezes, rhonchi, rales Abdomen: Abdomen is soft, nontender, nondistended, normal bowel sounds Neuro: cranial nerves II through XII intact, reflexes intact, sensation intact, Extremities:Moving all extremities. Equal strength bilaterally in the upper lower extremities. No significant deformity Skin: No lesions. Skin intact Psych: Normal insight. Normal judgment 04/16/18 09:37 Discharge - Discharge Clinical Impression: Abdominal pain Qualifiers: Abdominal location: unspecified location Qualified Code(s): R10.9 - Unspecified abdominal pain Condition: Good Disposition: HOME, SELF-CARE Instructions: Abdominal Pain ([facility]) Additional Instructions: Please follow-up with a regular doctor to have this reevaluated. There does not appear to be anything acute today. Uncertain etiology of why you are having these panic attacks and right upper quadrant pain however you do have hepatitis C. Your liver is in the right upper quadrant and this could be causing some intermittent pain. It will be very important that you follow-up with the seat coverer on a primary care doctor to have these symptoms evaluated. In the event that you are having worsening symptoms please return. Forms: Work Clearance, Return to Work Course - Re-evaluation Re-evalutation: 04/16/18 11:29 Laboratory 04/16/18 04/16/18 08:44 08:44 WBC 5.3 RBC 5.31 Hgb 16.3 Hct 47.0 MCV 89 MCH 30.7 MCHC 34.7 RDW 13.1 Plt Count 262 Seg Neutrophils % 46.6 Lymphocytes % 36.4 Monocytes % 13.3 H Eosinophils % 2.8 Basophils % 0.9 Absolute Neutrophils 2.5 Absolute Lymphocytes 1.9 Absolute Monocytes 0.7 Absolute Eosinophils 0.1 Absolute Basophils 0.0 Sodium 140.0 Potassium 4.3 Chloride 105 Carbon Dioxide 25 Anion Gap 10 BUN 15 Creatinine 0.64 Est GFR ( Amer) > 60 Est GFR (Non-Af Amer) > 60 Glucose 91 Calcium 9.8 Total Bilirubin 0.7 Direct Bilirubin 0.3 Neonat Total Bilirubin Not Reportable Neonat Direct Bilirubin Not Reportable Neonat Indirect Bili Not Reportable AST 90 H ALT 161 H Alkaline Phosphatase 66 Total Protein 8.1 Albumin 4.7 Lipase 130.5 Abdomen Ultrasound 04/16/18 09:34 IMPRESSION: NORMAL RIGHT UPPER QUADRANT ULTRASOUND. PANCREAS OBSCURED BY GAS. Labs are normal once again. Ultrasound unremarkable. No acute distress. Likely this for presents patient's underlying hepatitis issues. - Laboratory Result Diagrams: 04/16/18 08:44 04/16/18 08:44 Laboratory results interpreted by me: 04/16/18 04/16/18 08:44 08:44 Monocytes % 13.3 H AST 90 H ALT 161 H
[2018-04-16 09:50] LABS: ABSOLUTE EOSINOPHILS # (AUTO) 0.1 10^3/uL (0.0-0.6); ABSOLUTE LYMPHOCYTES (AUTO) 1.9 10^3/uL (0.5-4.7); ABSOLUTE MONOCYTES (AUTO) 0.7 10^3/uL (0.1-1.4); ABSOLUTE NEUT (AUTO) 2.5 10^3/uL (1.7-8.2); BASOPHILS % (AUTO) 0.9 % (0-2); EOSINOPHILS % (AUTO) 2.8 % (0-6); HEMOGLOBIN 16.3 g/dL (13.5-17.0); LYMPHOCYTES % (AUTO) 36.4 % (13-45); MEAN CORPUSCULAR HEMOGLOBIN 30.7 pg (27.0-33.4); MEAN CORPUSCULAR HGB CONC 34.7 g/dL (32.0-36.0); MEAN CORPUSCULAR VOLUME 89 fl (80-97); MONOCYTES % (AUTO) 13.3 % (3-13); PLATELET COUNT 262 10^3/uL (150-450); RED BLOOD COUNT 5.31 10^6/uL (4.35-5.55); RED CELL DISTRIBUTION WIDTH 13.1 % (11.5-14.0); SEGMENTED NEUTROPHILS % (AUTO) 46.6 % (42-78); TOTAL CELLS COUNTED % (AUTO) 100 %; WHITE BLOOD COUNT 5.3 10^3/uL (4.0-10.5)
[2018-04-16 10:27] LABS: ALANINE AMINOTRANSFERASE 161 U/L (21-72); ALBUMIN 4.7 g/dL (3.5-5.0); ALKALINE PHOSPHATASE 66 U/L (38-126); ANION GAP 10 (5-19); ASPARTATE AMINO TRANSFERASE 90 U/L (17-59); BILIRUBIN,DIRECT 0.3 mg/dL (0.0-0.4); BILIRUBIN,TOTAL 0.7 mg/dL (0.2-1.3); BLOOD UREA NITROGEN 15 mg/dL (7-20); CALCIUM 9.8 mg/dL (8.4-10.2); CARBON DIOXIDE 25 mmol/L (22-30); CHLORIDE 105 mmol/L (98-107); GLUCOSE 91 mg/dL (75-110); LIPASE 130.5 U/L (23-300); POTASSIUM 4.3 mmol/L (3.6-5.0); TOTAL PROTEIN 8.1 g/dL (6.3-8.2)
--- NOTE | 2018-04-16 10:30 | RADIOLOGY REPORT (SQ) ---
EXAM DESCRIPTION: U/S ABDOMEN LIMITED W/O DOP COMPLETED DATE/TIME: 04/16/2018 10:17 am REASON FOR STUDY: RUQ pain COMPARISON: None. TECHNIQUE: Dynamic and static grayscale images acquired of the right upper quadrant and recorded on PACS. Additional selected color Doppler and spectral images recorded. LIMITATIONS: Study limited due to acoustical interference from fat or from air in the bowel. FINDINGS: PANCREAS: Obscured. LIVER: No masses. Echotexture normal. LIVER VASCULATURE: Normal directional flow of the main portal vein and hepatic veins. GALLBLADDER: No stones. Normal wall thickness. No pericholecystic fluid. ULTRASOUND-DETECTED PACHECO'S SIGN: Negative. INTRAHEPATIC DUCTS AND COMMON DUCT: CBD and intrahepatic ducts normal caliber. No filling defects. INFERIOR VENA CAVA: Normal flow. AORTA: No aneurysm. RIGHT KIDNEY: Normal size. Normal echogenicity. No solid or suspicious masses. No hydronephrosis. No calcifications. PERITONEAL CAVITY AND RIGHT PLEURAL SPACE: No ascites or effusions. OTHER: No hernia identified. IMPRESSION: NORMAL RIGHT UPPER QUADRANT ULTRASOUND. PANCREAS OBSCURED BY GAS. TECHNICAL DOCUMENTATION: JOB ID: [id number] [employer]- All Rights Reserved Reading location - IP/workstation name: [email or web address]
[2018-04-16 12:10] VITALS: BP 119/82
== END 2018-04-16 12:15 | disposition home or self-care (01) ==
LOC: ER 07:45
DX: R10.11 Right upper quadrant pain (principal); F41.0 Panic disorder [episodic paroxysmal anxiety]; Z87.19 Personal history of other diseases of the digestive system
CPT/HCPCS: 36415; 76705; 80053; 83690; 85025; 96374; 99284

== ENCOUNTER 2018-06-26 10:38 | Emergency (ER) | payer SELFPAY ==
--- NOTE | 2018-06-26 11:52 | ER Document Report ---
ED General - General Chief Complaint: Suicidal Ideation Stated Complaint: PSYCH EVAL Time Seen by Provider: 06/26/18 10:56 Notes: This is a 27-year-old male to the emergency department for evaluation of suicidal ideation. Patient states that he has recently gotten addicted to narcotics. As recently as about 6 months ago. States that this time he has started using heroin. Has been using heroin now for several months. Does not want to do this anymore. Cannot seem to stop. States that he has disappointed everyone in his life and just feels hopeless and wants to . Wants help for both this suicidal ideation and heroin addiction. TRAVEL OUTSIDE OF THE [place] IN LAST 30 DAYS: No - HPI Onset/Duration: Gradual Quality of pain: No pain - Related Data Allergies/Adverse Reactions: No Known Allergies Allergy (Verified 04/11/18 15:54) Past Medical History - General Information source: Patient - Social History Smoking Status: Current Every Day Smoker Chew tobacco use (# tins/day): No Frequency of alcohol use: None Drug Abuse: Heroin, Marijuana, Prescription drugs Family History: DM, Hypertension. denies: Arthritis, CAD, COPD, CVA, Hyperlipidemia, Malignancy, Thyroid Disfunction Patient has suicidal ideation: Yes Patient has homicidal ideation: No Renal/ Medical History: Denies: Hx Peritoneal Dialysis GI Medical History: Reports: Hx Gastroesophageal Reflux Disease, Hx Hepatitis - hep c Psychiatric Medical History: Reports: Hx Attention Deficit Hyperactivity Disorder Infectious Medical History: Reports: Hx Hepatitis - hep c Past Surgical History: Reports: Hx Oral Surgery - Immunizations Immunizations up to date: No Hx Diphtheria, Pertussis, Tetanus Vaccination: No Review of Systems - Review of Systems Notes: Constitutional: denies: Chills, Diaphoresis, Fever, Malaise, Weakness EENT: denies: Eye discharge, Blurred vision, Tearing, Double vision, Nose congestion, Nose discharge, Throat swelling, Mouth pain Cardiovascular: denies: Palpitations, Heart racing, Orthopnea, Dyspnea, Chest pain Respiratory: denies: Cough, Hurts to breathe, Wheezing, Shortness of breath Gastrointestinal: denies: Abdominal pain, Diarrhea, Nausea, Vomiting, Black stools, bright red blood in stool Genitourinary: denies: Burning, Dysuria, Discharge, Frequency, Flank pain, Hematuria Musculoskeletal: denies: Joint pain, Joint swelling, Muscle pain, Muscle stiffness, back pain Hematologic/Lymphatic: denies: Anemia, Easy bleeding, Easy bruising, Blood clots Neurological/Psychological: denies: Confusion, Dementia, does complain of suicidal ideation, substance abuse and depression Skin: No lesions, no masses, no skin breakdown, no abscesses Physical Exam - Vital signs Vitals: Temp Pulse Resp BP Pulse Ox 97.6 F 72 16 116/73 99 06/26/18 10:44 06/26/18 10:44 06/26/18 10:44 06/26/18 10:44 06/26/18 10:44 Interpretation: Normal - General General appearance: Appears well, Alert - HEENT Head: Normocephalic, Atraumatic Eyes: Normal Pupils: PERRL - Respiratory Respiratory status: No respiratory distress Chest status: Nontender Breath sounds: Normal Chest palpation: Normal - Cardiovascular Rhythm: Regular Heart sounds: Normal auscultation Murmur: No - Abdominal Inspection: Normal Distension: No distension Bowel sounds: Normal Tenderness: Nontender Organomegaly: No organomegaly - Back Back: Normal, Nontender - Extremities General upper extremity: Normal inspection, Nontender, Normal color, Normal ROM , Normal temperature General lower extremity: Normal inspection, Nontender, Normal color, Normal ROM , Normal temperature, Normal weight bearing. No: Yisel's sign - Neurological Neuro grossly intact: Yes Cognition: Normal Orientation: AAOx4 [place] Coma Scale Eye Opening: Spontaneous [place] Coma Scale Verbal: Oriented [place] Coma Scale Motor: Obeys Commands [place] Coma Scale Total: 15 Speech: Normal Motor strength normal: LUE, RUE, LLE, RLE Sensory: Normal - Psychological Associated symptoms: Anxious, Depressed, Tearful - Skin Skin Temperature: Warm Skin Moisture: Dry Skin Color: Other - Patient has track crowley on the bilateral upper extremities. No obvious abscess. Course - Re-evaluation Re-evalutation: 06/26/18 11:51 At this time will do psych screening labs. Will place on 24-hour hold so that mental health can evaluate. Patient seems appropriate at this time. In no major distress. Pending mental health and psych screening labs at this time. 06/26/18 16:26 Laboratory 06/26/18 06/26/18 06/26/18 11:50 11:50 12:19 WBC Cancelled RBC Cancelled Hgb Cancelled Hct Cancelled MCV Cancelled MCH Cancelled MCHC Cancelled RDW Cancelled Plt Count Cancelled Seg Neutrophils % Cancelled Lymphocytes % Cancelled Monocytes % Cancelled Eosinophils % Cancelled Basophils % Cancelled Absolute Neutrophils Cancelled Absolute Lymphocytes Cancelled Absolute Monocytes Cancelled Absolute Eosinophils Cancelled Absolute Basophils Cancelled Platelet Estimate Cancelled Sodium Potassium Chloride Carbon Dioxide Anion Gap BUN Creatinine Est GFR ( Amer) Est GFR (Non-Af Amer) Glucose Calcium Total Bilirubin Direct Bilirubin Neonat Total Bilirubin Neonat Direct Bilirubin Neonat Indirect Bili AST ALT Alkaline Phosphatase Total Protein Albumin Urine Color STRAW Urine Appearance CLEAR Urine pH 7.0 Ur Specific [place] 1.010 Urine Protein NEGATIVE Urine Glucose (UA) NEGATIVE Urine Ketones NEGATIVE Urine Blood SMALL H Urine Nitrite NEGATIVE Urine Bilirubin NEGATIVE Urine Urobilinogen NEGATIVE Ur Leukocyte Esterase NEGATIVE Urine WBC (Auto) 0 Urine RBC (Auto) 0 Urine Mucus (Auto) RARE Urine Ascorbic Acid NEGATIVE Salicylates Urine Opiates Screen UNCONFIRMED POSITIVE Urine Methadone Screen NEGATIVE Acetaminophen Ur Barbiturates Screen NEGATIVE Ur Phencyclidine Scrn NEGATIVE Ur Amphetamines Screen NEGATIVE U Benzodiazepines Scrn NEGATIVE Urine Cocaine Screen NEGATIVE U Marijuana (THC) Screen UNCONFIRMED POSITIVE Serum Alcohol Slides for Path Review Cancelled 06/26/18 06/26/18 12:19 14:27 WBC 6.8 RBC 4.78 Hgb 14.1 Hct 41.2 MCV 86 MCH 29.5 MCHC 34.2 RDW 12.1 Plt Count 241 Seg Neutrophils % 69.5 Lymphocytes % 20.8 Monocytes % 8.4 Eosinophils % 0.7 Basophils % 0.6 Absolute Neutrophils 4.7 Absolute Lymphocytes 1.4 Absolute Monocytes 0.6 Absolute Eosinophils 0.0 Absolute Basophils 0.0 Platelet Estimate Sodium 141.4 Potassium 4.6 Chloride 103 Carbon Dioxide 27 Anion Gap 11 BUN 9 Creatinine 0.65 Est GFR ( Amer) > 60 Est GFR (Non-Af Amer) > 60 Glucose 105 Calcium 9.7 Total Bilirubin 0.5 Direct Bilirubin 0.3 Neonat Total Bilirubin Not Reportable Neonat Direct Bilirubin Not Reportable Neonat Indirect Bili Not Reportable AST 54 ALT 87 H Alkaline Phosphatase 72 Total Protein 7.7 Albumin 4.3 Urine Color Urine Appearance Urine pH Ur Specific [place] Urine Protein Urine Glucose (UA) Urine Ketones Urine Blood Urine Nitrite Urine Bilirubin Urine Urobilinogen Ur Leukocyte Esterase Urine WBC (Auto) Urine RBC (Auto) Urine Mucus (Auto) Urine Ascorbic Acid Salicylates < 1.0 L Urine Opiates Screen Urine Methadone Screen Acetaminophen < 10 L Ur Barbiturates Screen Ur Phencyclidine Scrn Ur Amphetamines Screen U Benzodiazepines Scrn Urine Cocaine Screen U Marijuana (THC) Screen Serum Alcohol < 10 Slides for Path Review - Vital Signs Vital signs: Temp Pulse Resp BP Pulse Ox 97.6 F 72 16 116/73 99 06/26/18 10:44 06/26/18 10:44 06/26/18 10:44 06/26/18 10:44 06/26/18 10:44 - Laboratory Result Diagrams: 06/26/18 14:27 06/26/18 12:19 Laboratory results interpreted by me: 06/26/18 06/26/18 11:50 12:19 ALT 87 H Urine Blood SMALL H Salicylates < 1.0 L Acetaminophen < 10 L Discharge - Discharge Clinical Impression: Substance abuse or dependence, Suicidal ideation Condition: Good
[2018-06-26] MEDS ORDERED: CLONIDINE 0.1 MG/24 HR PATCH.TDWK TD ONE (11:53)
[2018-06-26] MEDS ORDERED: BUSPIRONE HCL 10 MG TABLET PO ONE (11:54)
[2018-06-26] MEDS ORDERED: CLONIDINE HCL 0.1 MG TABLET PO ONE ×2 (11:54→15:13)
[2018-06-26 13:05] LABS: ALANINE AMINOTRANSFERASE 87 U/L (21-72); ALBUMIN 4.3 g/dL (3.5-5.0); ALKALINE PHOSPHATASE 72 U/L (38-126); ANION GAP 11 (5-19); ASPARTATE AMINO TRANSFERASE 54 U/L (17-59); BILIRUBIN,DIRECT 0.3 mg/dL (0.0-0.4); BILIRUBIN,TOTAL 0.5 mg/dL (0.2-1.3); BLOOD UREA NITROGEN 9 mg/dL (7-20); CALCIUM 9.7 mg/dL (8.4-10.2); CARBON DIOXIDE 27 mmol/L (22-30); CHLORIDE 103 mmol/L (98-107); GLUCOSE 105 mg/dL (75-110); POTASSIUM 4.6 mmol/L (3.6-5.0); SODIUM 141.4 mmol/L (137-145); TOTAL PROTEIN 7.7 g/dL (6.3-8.2)
[2018-06-26 13:08] LABS: ACETAMINOPHEN < 10 ug/mL (10-30); ALCOHOL < 10 mg/dL (NONE DETECTED); SALICYLATE < 1.0 mg/dL (2.0-20.0)
[2018-06-26 13:18] LABS: APPEARANCE,URINE CLEAR; BILIRUBIN,URINE NEGATIVE (NEGATIVE); COLOR,URINE STRAW; GLUCOSE, URINE NEGATIVE (NEGATIVE); KETONES,URINE NEGATIVE (NEGATIVE); LEUKOCYTE ESTERASE,URINE NEGATIVE (NEGATIVE); NITRITE,URINE NEGATIVE (NEGATIVE); PROTEIN,URINE NEGATIVE (NEGATIVE); UROBILINOGEN,URINE NEGATIVE mg/dL (<2.0)
[2018-06-26 13:32] LABS: URINE AMPHETAMINES SCREEN NEGATIVE; URINE BARBITURATES SCREEN NEGATIVE; URINE BENZODIAZEPINES SCREEN NEGATIVE; URINE COCAINE SCREEN NEGATIVE; URINE MARIJUANA (THC) SCREEN UNCONFIRMED POSITIVE; URINE METHADONE SCREEN NEGATIVE; URINE PHENCYCLIDINE SCREEN NEGATIVE
[2018-06-26 14:36] LABS: ABSOLUTE LYMPHOCYTES (AUTO) 1.4 10^3/uL (0.5-4.7); ABSOLUTE MONOCYTES (AUTO) 0.6 10^3/uL (0.1-1.4); ABSOLUTE NEUT (AUTO) 4.7 10^3/uL (1.7-8.2); BASOPHILS % (AUTO) 0.6 % (0-2); EOSINOPHILS % (AUTO) 0.7 % (0-6); HEMATOCRIT 41.2 % (37.9-51.0); HEMOGLOBIN 14.1 g/dL (13.5-17.0); LYMPHOCYTES % (AUTO) 20.8 % (13-45); MEAN CORPUSCULAR HEMOGLOBIN 29.5 pg (27.0-33.4); MEAN CORPUSCULAR HGB CONC 34.2 g/dL (32.0-36.0); MEAN CORPUSCULAR VOLUME 86 fl (80-97); MONOCYTES % (AUTO) 8.4 % (3-13); PLATELET COUNT 241 10^3/uL (150-450); RED BLOOD COUNT 4.78 10^6/uL (4.35-5.55); RED CELL DISTRIBUTION WIDTH 12.1 % (11.5-14.0); SEGMENTED NEUTROPHILS % (AUTO) 69.5 % (42-78); TOTAL CELLS COUNTED % (AUTO) 100 %; WHITE BLOOD COUNT 6.8 10^3/uL (4.0-10.5)
[2018-06-26] MEDS ORDERED: LORAZEPAM 1 MG TABLET PO PRN (15:13)
--- NOTE | 2018-06-26 17:11 | PSYCHOLOGICAL NOTE ---
Psych Note - Psych Note Date seen by psych provider: 06/26/18 Time seen by psych provider: 12:55 Psych Note: Reason for Consult: suicidal ideation/ substance abuse This is a 27-year-old male to the emergency department for evaluation of suicidal ideation. Patient states that he has recently gotten addicted to narcotics. Pressure\plan: Patient is recommended for IVC for mental health observation overnight.
[2018-06-26] MEDS ORDERED: CLONIDINE HCL 0.2 MG TABLET ONE (17:30)
[2018-06-26] MEDS ORDERED: LORAZEPAM 1 MG TABLET PO ONE (20:56)
--- NOTE | 2018-06-27 00:17 | EKG REPORT ---
SEVERITY:- NORMAL ECG - SINUS RHYTHM : Confirmed by: Cali Garcia 27-Jun-2018 00:17:02
--- NOTE | 2018-06-27 09:21 | ER Document Report ---
ED Psych Disorder / Suicide - General Chief Complaint: Suicidal Ideation Stated Complaint: PSYCH EVAL Time Seen by Provider: 06/26/18 10:56 Notes: Daily psychiatric rounding note The patient seems much improved. He originally came in with thoughts of hurting himself. He states he is feeling much better. He currently denies suicidal ideation denies any pain. TRAVEL OUTSIDE OF THE [place] IN LAST 30 DAYS: No - Related Data Allergies/Adverse Reactions: No Known Allergies Allergy (Verified 04/11/18 15:54) Past Medical History - General Information source: Patient - Social History Smoking Status: Current Every Day Smoker Chew tobacco use (# tins/day): No Frequency of alcohol use: None Drug Abuse: Heroin, Marijuana, Prescription drugs Family History: DM, Hypertension. denies: Arthritis, CAD, COPD, CVA, Hyperlipidemia, Malignancy, Thyroid Disfunction Patient has suicidal ideation: Yes Patient has homicidal ideation: No Renal/ Medical History: Denies: Hx Peritoneal Dialysis GI Medical History: Reports: Hx Gastroesophageal Reflux Disease, Hx Hepatitis - hep c Psychiatric Medical History: Reports: Hx Attention Deficit Hyperactivity Disorder Infectious Medical History: Reports: Hx Hepatitis - hep c Past Surgical History: Reports: Hx Oral Surgery - Immunizations Immunizations up to date: No Hx Diphtheria, Pertussis, Tetanus Vaccination: No Physical Exam - Vital signs Vitals: Temp Pulse Resp BP Pulse Ox 97.6 F 72 16 116/73 99 06/26/18 10:44 06/26/18 10:44 06/26/18 10:44 06/26/18 10:44 06/26/18 10:44 - Notes Notes: Pleasant talkative. sKin warm and dry Psych Patient denies suicidal ideation denies visual auditory hallucinations, is insightful to the visit. Course - Re-evaluation Re-evalutation: 06/27/18 09:27 Patient seems to be doing well. He recants any suicidal ideation. He does have issues with polysubstance abuse. He is feeling much better he feels that it is his withdrawal is improving. Patient stated he has a plan on Friday with [facility]. - Vital Signs Vital signs: Temp Pulse Resp BP Pulse Ox 98.1 F 70 16 111/65 100 06/27/18 05:50 06/27/18 05:50 06/27/18 05:50 11/17/18 05:50 06/27/18 05:50 - Laboratory Result Diagrams: 06/26/18 14:27 06/26/18 12:19 Laboratory results interpreted by me: 06/26/18 06/26/18 11:50 12:19 ALT 87 H Urine Blood SMALL H Salicylates < 1.0 L Acetaminophen < 10 L Discharge - Discharge Clinical Impression: Substance abuse or dependence, Suicidal ideation Condition: Good
[2018-06-27 11:04] VITALS: BP 119/70
--- NOTE | 2018-06-27 15:59 | PSYCHOLOGICAL NOTE ---
Psych Note - Psych Note Date seen by psych provider: 06/27/18 Time seen by psych provider: 03:00 Psych Note: Reason for consult: suicidal ideation, ramp agent conducted check in with patient. Patient states that he feels much better today after a good night's rest. Patient is interested in outpatient therapy. This Clinician provided patient with a resource list of mental health providers. Patient states that he is no longer experiencing withdrawals. He is no longer experiencing nausea, goose bumps, night sweats or cold chills. Patient has an appointment on Friday, June 30, 2018 at the [facility]. Patient denies suicidal ideation. Patient denies homicidal ideation. Clinician contacted [facility] to facilitate transition of services. Patient is alert and oriented to person, place, time & circumstance. Eye contact was well maintained. Insight, judgment, impulse control are fair. Patient demonstrates a clear organized and linear thought process. Conversational speech was within normal rate, tone and prosody. Intellectual abilities appear to be within the average range. 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 Patient denies suicidal ideation with no intent, means or plans. Patient is hopeful that substance abuse treatment will improve his quality of life. Patient has strong family support and is interested in treatment. Dr. Roque was consulted on the care and management of this patient ; attending physician is in agreement with recommendations and disposition.
== END 2018-06-27 11:05 | disposition home or self-care (01) ==
LOC: ER 10:38
DX: F11.20 Opioid dependence, uncomplicated (principal); R45.851 Suicidal ideations; F17.200 Nicotine dependence, unspecified, uncomplicated; F12.10 Cannabis abuse, uncomplicated
CPT/HCPCS: 36415; 80053; 80307; 81001; 85025; 93005; 93010; 99285

== ENCOUNTER 2018-07-24 18:32 | Emergency (ER) | payer SELFPAY ==
--- NOTE | 2018-07-24 19:37 | ER Document Report ---
ED General - General Chief Complaint: Suicidal Ideation Stated Complaint: OD ATTEMPTED Time Seen by Provider: 07/24/18 19:09 Notes: Patient is a 27-year-old male with a past medical history of hepatitis C, current IV opiate dependence, presents with suicidal ideation that has been intermittent over the last several weeks although reports he did have an intentional suicide attempt 2 nights ago. The patient states that his cycle of addiction has gotten him to a point where he is frequently thinking about suicide and recognizes that he needs help. He states his last use of heroin was this morning. States that he is having some "sniffles" but denies any additional withdrawal symptoms currently. Denies any specific suicidal ideation at this time. Nothing seems to improve his symptoms, he notes using opiates worsens his symptoms. He states that he was required to come to the emergency department tonight because when he contacted [facility] for rehab placement the rehab would not accept him until he was first thoroughly evaluated due to the suicide attempt 48 hours ago. TRAVEL OUTSIDE OF THE [place] IN LAST 30 DAYS: No - Related Data Allergies/Adverse Reactions: No Known Allergies Allergy (Verified 07/24/18 18:32) Past Medical History - General Information source: Patient - Social History Smoking Status: Current Every Day Smoker Chew tobacco use (# tins/day): No Frequency of alcohol use: None Drug Abuse: Heroin, Marijuana Lives with: Family Family History: DM, Hypertension. denies: Arthritis, CAD, COPD, CVA, Hyperlipidemia, Malignancy, Thyroid Disfunction Patient has suicidal ideation: Yes Patient has homicidal ideation: No Renal/ Medical History: Denies: Hx Peritoneal Dialysis GI Medical History: Reports: Hx Gastroesophageal Reflux Disease, Hx Hepatitis - hep c Psychiatric Medical History: Reports: Hx Attention Deficit Hyperactivity Disorder Infectious Medical History: Reports: Hx Hepatitis - hep c Past Surgical History: Reports: Hx Oral Surgery - Immunizations Immunizations up to date: No Hx Diphtheria, Pertussis, Tetanus Vaccination: No Review of Systems - Review of Systems Notes: Constitutional: Negative for fever. HENT: Negative for sore throat. Eyes: Negative for visual changes. Cardiovascular: Negative for chest pain. Respiratory: Negative for shortness of breath. Gastrointestinal: Negative for abdominal pain, vomiting or diarrhea. Genitourinary: Negative for dysuria. Musculoskeletal: Negative for back pain. Skin: Negative for rash. Neurological: Negative for headaches, weakness or numbness. 10 point ROS negative except as marked above and in HPI. Physical Exam - Vital signs Vitals: Temp Pulse Resp BP Pulse Ox 97.9 F 74 16 124/81 97 07/24/18 18:34 18 18:34 18 18:34 18 18:34 07/24/18 18:34 Interpretation: Normal Notes: PHYSICAL EXAMINATION: GENERAL: Well-appearing, well-nourished and in no acute distress. HEAD: Atraumatic, normocephalic. EYES: Pupils equal round and reactive to light, extraocular movements intact, sclera anicteric, conjunctiva are normal. ENT: nares patent, oropharynx clear without exudates. Moist mucous membranes. NECK: Normal range of motion, supple without lymphadenopathy LUNGS: Breath sounds clear to auscultation bilaterally and equal. No wheezes rales or rhonchi. HEART: Regular rate and rhythm without murmurs ABDOMEN: Soft, nontender, normoactive bowel sounds. No guarding, no rebound. No masses appreciated. EXTREMITIES: Normal range of motion, no pitting or edema. No cyanosis. NEUROLOGICAL: No focal neurological deficits. Moves all extremities spontaneously and on command. PSYCH: Normal mood, normal affect. SKIN: Warm, Dry, normal turgor, no rashes or lesions noted. Course - Re-evaluation Re-evalutation: 07/24/18 19:34 Patient presents with intermittent suicidal ideation secondary to opiate addiction and abuse. States he did attempt to intentionally overdose 2 nights ago, when that attempt was unsuccessful he notified family and significant other about his ongoing opiate abuse and need for rehab. States he got contacted [facility] who brought the patient here to the emergency department because he required medical clearance and behavioral health assessment prior to the detox facility being willing to accept him. He denies any current suicidal ideation. States he is having mild withdrawal but is denying that he would like anything for his withdrawal symptoms currently. Denies any current acute medical symptoms. A medical screening exam is otherwise unremarkable. Standard medical screening labs will be obtained. Patient is otherwise cleared for evaluation and disposition by behavioral health in the morning - Vital Signs Vital signs: Temp Pulse Resp BP Pulse Ox 97.9 F 74 16 124/81 97 07/24/18 18:34 18 18:34 1218 18:34 1214/18 18:34 07/24/18 18:34 - Laboratory Result Diagrams: 07/24/18 19:21 07/24/18 19:21 - EKG Interpretation by Me Additional EKG results interpreted by me: 07/24/18 19:35 Sinus rhythm. Rate 65. No ST elevations or depressions. QTC is 375. Discharge - Discharge Clinical Impression: Opiate abuse, continuous, Suicidal ideation Opiate addiction Qualifiers: Substance use status: uncomplicated Qualified Code(s): F11.20 - Opioid dependence, uncomplicated Condition: Fair
[2018-07-24 19:43] LABS: APPEARANCE,URINE CLEAR; BILIRUBIN,URINE NEGATIVE (NEGATIVE); COLOR,URINE YELLOW; GLUCOSE, URINE NEGATIVE (NEGATIVE); KETONES,URINE NEGATIVE (NEGATIVE); LEUKOCYTE ESTERASE,URINE NEGATIVE (NEGATIVE); NITRITE,URINE NEGATIVE (NEGATIVE); PROTEIN,URINE NEGATIVE (NEGATIVE); URINE SPECIFIC GRAVITY 1.016; UROBILINOGEN,URINE NEGATIVE mg/dL (<2.0)
[2018-07-24 19:56] LABS: URINE AMPHETAMINES SCREEN NEGATIVE; URINE BARBITURATES SCREEN NEGATIVE; URINE BENZODIAZEPINES SCREEN NEGATIVE; URINE COCAINE SCREEN NEGATIVE; URINE MARIJUANA (THC) SCREEN UNCONFIRMED POSITIVE; URINE METHADONE SCREEN NEGATIVE; URINE PHENCYCLIDINE SCREEN NEGATIVE
[2018-07-24 19:58] LABS: ABSOLUTE EOSINOPHILS # (AUTO) 0.1 10^3/uL (0.0-0.6); ABSOLUTE LYMPHOCYTES (AUTO) 2.5 10^3/uL (0.5-4.7); ABSOLUTE MONOCYTES (AUTO) 0.6 10^3/uL (0.1-1.4); ABSOLUTE NEUT (AUTO) 4.6 10^3/uL (1.7-8.2); BASOPHILS % (AUTO) 0.6 % (0-2); EOSINOPHILS % (AUTO) 1.1 % (0-6); HEMATOCRIT 41.1 % (37.9-51.0); HEMOGLOBIN 14.6 g/dL (13.5-17.0); LYMPHOCYTES % (AUTO) 32.1 % (13-45); MEAN CORPUSCULAR HEMOGLOBIN 30.2 pg (27.0-33.4); MEAN CORPUSCULAR HGB CONC 35.4 g/dL (32.0-36.0); MEAN CORPUSCULAR VOLUME 85 fl (80-97); MONOCYTES % (AUTO) 7.5 % (3-13); PLATELET COUNT 304 10^3/uL (150-450); RED BLOOD COUNT 4.83 10^6/uL (4.35-5.55); RED CELL DISTRIBUTION WIDTH 12.6 % (11.5-14.0); SEGMENTED NEUTROPHILS % (AUTO) 58.7 % (42-78); TOTAL CELLS COUNTED % (AUTO) 100 %; WHITE BLOOD COUNT 7.9 10^3/uL (4.0-10.5)
[2018-07-24 20:01] LABS: ACETAMINOPHEN < 10 ug/mL (10-30); ALANINE AMINOTRANSFERASE 61 U/L (21-72); ALBUMIN 4.5 g/dL (3.5-5.0); ALCOHOL < 10 mg/dL (NONE DETECTED); ALKALINE PHOSPHATASE 69 U/L (38-126); ANION GAP 11 (5-19); ASPARTATE AMINO TRANSFERASE 37 U/L (17-59); BILIRUBIN,DIRECT 0.2 mg/dL (0.0-0.4); BILIRUBIN,TOTAL 0.4 mg/dL (0.2-1.3); BLOOD UREA NITROGEN 9 mg/dL (7-20); CARBON DIOXIDE 30 mmol/L (22-30); CHLORIDE 98 mmol/L (98-107); GLUCOSE 97 mg/dL (75-110); POTASSIUM 3.9 mmol/L (3.6-5.0); SALICYLATE < 1.0 mg/dL (2.0-20.0); SODIUM 138.5 mmol/L (137-145); TOTAL PROTEIN 7.6 g/dL (6.3-8.2)
[2018-07-24] MEDS ORDERED: NICOTINE 21 MG/24 HR PATCH.TD24 TD ONE (21:13)
[2018-07-25 05:06] VITALS: BP 110/72
--- NOTE | 2018-07-25 07:50 | EKG REPORT ---
SEVERITY:- NORMAL ECG - SINUS RHYTHM : Confirmed by: Yennifer Hopkins MD 25-Jul-2018 07:49:33
[2018-07-25] MEDS ORDERED: CLONIDINE HCL 0.1 MG TABLET PO ONE (09:14)
--- NOTE | 2018-07-25 09:29 | ER Document Report ---
Doctor's Note Notes: 07/25/18 09:28 Suicidal ideations with drug intoxication, with vital signs and labs as recorded. No auditory visual hallucinations. Patient has been accepted at the [facility] and will be transferred there this morning.
--- NOTE | 2018-07-25 11:38 | PSYCHOLOGICAL NOTE ---
Psych Note - Psych Note Date seen by psych provider: 07/25/18 Time seen by psych provider: 08:15 Psych Note: Reason for Consult: Detox, Suicidal ideation Patient is a 27-year-old male with a past medical history of hepatitis C, current IV opiate dependence, presents with suicidal ideation that has been intermittent over the last several weeks although reports he did have an intentional suicide attempt 2 nights ago. Patient reports that the other day he was going through withdrawal and his feelings of wanting to harm himself got worse so he attempted to overdose. He reports that when he woke up he knew he needed to get help and called [facility] for help for sobriety. He continued to report that he knows that his thoughts of suicidal ideation are directly connected to his drug use and are worse when he is going through withdrawals. He continued to state that it seems to be worse at home because he sees his girlfriend crying and knows that he keeps messing up. When asked if he followed up with checks of the treatment center as he said he was going to do last month during his last evaluation () reports that he went however they reported to him that they did not have a file for him; "I do not understand what happened and after that I pretty much said screw it." Patient is alert and orientated to person, place, time and circumstance. Mood is dysphoric with flat affect. Clinician notes patient is currently going through withdrawals from heroin. Patient endorses passive suicidal ideation i.e. no plans means or intent and reports it is directly connected to his substance abuse. Patient denies homicidal ideation. Eye contact is poor. Conversational speech was within normal rate, tone and prosody. Intellectual abilities appear to be within the average range. Attention and concentration are fair. Insight, judgment, impulse control are fair. Behavior health team contacted the [facility], there is currently a bed and the patient conducted a phone interview. Patient was accepted and the bed is secured. Behavioral health team was granted permissions for a cab voucher to transport patient to the [facility] placement No medication recommendations at this time Diagnosis 292.0 (F11.23) opiate withdrawal: Heroin Impression/Plan: Patient is cleared from acute psychiatric service. Patient reports passive suicidal ideation I no plans means or intent directly correlating with his drug use which intensifies when he is going through withdrawal. Patient reports wanting assistance in detox and sobriety. Patient was able to conduct a phone interview with the [facility] and a bed was secured for him. [facility]. Patient is highly encouraged to follow through with this voluntary placement and once completed to continue with outpatient substance abuse treatment. Dr. Roque was consulted to care management of this patient; attending physicians agreement with recommendations and disposition.
== END 2018-07-25 10:36 | disposition home or self-care (01) ==
LOC: ER 18:32
DX: R45.851 Suicidal ideations (principal); F11.20 Opioid dependence, uncomplicated; Z86.19 Personal history of other infectious and parasitic diseases; F17.200 Nicotine dependence, unspecified, uncomplicated
CPT/HCPCS: 36415; 80053; 80307; 81001; 85025; 93005; 93010; 99285

== ENCOUNTER 2018-12-14 21:38 | Emergency (ER) | payer SELFPAY ==
[2018-12-14] MEDS ORDERED: ONDANSETRON HCL INJ/PF 4 MG/2 ML SDV IV ONE (22:18)
[2018-12-14] MEDS ORDERED: FENTANYL CITRATE INJ/PF 100 MCG/2 ML AMPUL IV ONE (22:18)
[2018-12-14] MEDS ORDERED: NORMAL SALINE 1000 ML 1,000 ML IV ONE (22:18)
--- NOTE | 2018-12-14 22:21 | ER Document Report ---
ED Medical Screen (RME) - General Chief Complaint: Abdominal Pain Stated Complaint: DIFFICULTY BREATHING Time Seen by Provider: 12/14/18 21:46 TRAVEL OUTSIDE OF THE [place] IN LAST 30 DAYS: No - HPI Notes: 12/14/18 Patient is a 28 year old male who presents to the ER for a 3-4 day history of "chest pain." Patient states that earlier tonight he was walking out of work when he sneezed and developed acute onset of "chest pain." When asked to point to the chest pain patient points to the epigastric area. Patient states that since sneezing he has had severe upper abdominal pain. Patient reports that it is a sharp constant stabbing pain. Patient states that the pain is worse when he attempts to take a deep breath or moves. Patient does have a history of ADHD, hiatal hernia and acid reflux. Is taking daily medication. Denies nausea vomiting or diarrhea. Patient appears extremely uncomfortable in triage and is diaphoretic. - Related Data Allergies/Adverse Reactions: No Known Allergies Allergy (Verified 07/24/18 18:32) Past Medical History - Social History Family history: Reviewed & Not Pertinent Renal/ Medical History: Denies: Hx Peritoneal Dialysis GI Medical History: Reports: Hx Gastroesophageal Reflux Disease, Hx Hepatitis - hep c Psychiatric Medical History: Reports: Hx Attention Deficit Hyperactivity Disorder Infectious Medical History: Reports: Hx Hepatitis - hep c Past Surgical History: Reports: Hx Oral Surgery - Immunizations Immunizations up to date: No Hx Diphtheria, Pertussis, Tetanus Vaccination: No History of Influenza Vaccine for 05/2017 - 10/2017 Season: No Physical Exam - Vital signs Vitals: Temp Pulse Resp BP Pulse Ox 97.8 F 118 H 26 H 147/101 H 96 12/14/18 21:43 12/14/18 21:43 12/14/18 21:43 12/14/18 21:43 12/14/18 21:43 - Cardiovascular Rhythm: Regular Heart sounds: Normal auscultation, S1 appreciated, S2 appreciated - Abdominal Bowel sounds: Normal Tenderness: Tender Notes: Unable to obtain appropriate abdominal assessment due to patient in a wheelchair and leaning forward reporting severe pain. Course - Re-evaluation Re-evalutation: 12/14/18 In triage patient appears extremely uncomfortable, is diaphoretic, and complaining of severe 5 out of 5 chest pain. Due to this patient's complaint and severity patient to be placed in a room. Orders initiated. Patient will need a thorough assessment when placed on stretcher. I have greeted and performed a rapid initial assessment of this patient. A comprehensive ED assessment and evaluation of the patient, analysis of test results and completion of the medical decision making process will be conducted by additional ED providers. - Vital Signs Vital signs: Temp Pulse Resp BP Pulse Ox 97.8 F 118 H 26 H 147/101 H 96 12/14/18 21:43 12/14/18 21:43 12/14/18 21:43 12/14/18 21:43 12/14/18 21:43
--- NOTE | 2018-12-14 22:21 | RADIOLOGY REPORT (SQ) ---
EXAM DESCRIPTION: XR CHEST 2 VIEWS COMPLETED DATE/TME: 12/14/2018 21:54 CLINICAL HISTORY: 28 years, Male, chest pain, epigastric pain COMPARISON: 03/16/2017. NUMBER OF VIEWS: 2 TECHNIQUE: Two-view, PA and lateral projections of the chest were obtained. LIMITATIONS: None. FINDINGS: Unremarkable cardiac and mediastinal silhouette. Heart size is normal. Lungs are clear without focal opacity, pneumothorax or pleural effusions. The visualized bones are within normal limits. IMPRESSION: No acute cardiopulmonary abnormalities. copyright 2010 [employer]- All Rights Reserved
--- NOTE | 2018-12-14 22:22 | ER Document Report ---
ED General - General Chief Complaint: Abdominal Pain Stated Complaint: DIFFICULTY BREATHING Time Seen by Provider: 12/14/18 21:46 TRAVEL OUTSIDE OF THE [place] IN LAST 30 DAYS: No - HPI Notes: Patient is a 28-year-old male that presents to the emergency department for chief complaint of abdominal pain. Patient reports a history of hiatal hernia. He states he usually has some epigastric pain when he is lifting heavy objects or straining. Patient reports this afternoon he lifted a heavy object which made the pain more severe and then later sneezed and had sudden onset of severe epigastric pain. He states it is sharp and constant. It is worse with any movement. He reports nausea with no vomiting. He denies relieving factors. He states the pain radiates into his bilateral upper abdomen and back. He denies any associated fevers but states he started sweating when the pain became severe. Past Medical History: Hiatal hernia Past Surgical History: Negative Social History: Occasional marijuana, daily tobacco, occasional alcohol Family History: Reviewed and noncontributory for presenting illness Allergies: Reviewed, see documented allergy list. REVIEW OF SYSTEMS: CONSTITUTIONAL : No fever No chills diaphoresis No recent illness EENT: No vision changes No congestion No sore throat CARDIOVASCULAR: No chest pain No palpitations RESPIRATORY: No shortness of breath No cough No difficulty breathing GASTROINTESTINAL: abdominal pain nausea No vomiting No diarrhea GENITOURINARY: No dysuria No hematuria No difficulty urinating MUSCULOSKELETAL: No back pain No leg pain No arm pain SKIN: No rashes No lesions LYMPHATIC: No swollen, enlarged glands. NEUROLOGICAL: No lightheadedness No headache No weakness No paresthesias PSYCHIATRIC: No anxiety No depression PHYSICAL EXAMINATION: Vital signs reviewed, nursing noted reviewed. GENERAL: Patient in moderate distress, diaphoretic, appears very uncomfortable HEAD: Atraumatic, normocephalic. EYES: Eyes appear normal, extraocular movements intact, sclera anicteric, conjunctiva are normal. ENT: nares patent, oropharynx clear without exudates. Moist mucous membranes. NECK: Normal range of motion, supple without lymphadenopathy LUNGS: Tachypneic with no accessory muscle use, breath sounds clear to auscultation bilaterally and equal. No wheezes rales or rhonchi. HEART: Tachycardic rate and regular rhythm without murmurs ABDOMEN: Soft, diffuse abdominal tenderness worse in the epigastric region, involuntary guarding, no rigidity or rebound tenderness. No masses appreciated. EXTREMITIES: Nontender, good range of motion, no pitting or edema. NEUROLOGICAL: No focal neurological deficits. Moves all extremities spontaneously Motor and sensory grossly intact on exam. PSYCH: Normal mood, normal affect. SKIN: Warm, Dry, normal turgor, no rashes or lesions noted on exposed skin - Related Data Allergies/Adverse Reactions: No Known Allergies Allergy (Verified 07/24/18 18:32) Past Medical History - Social History Smoking Status: Current Every Day Smoker Family History: DM, Hypertension. denies: Arthritis, CAD, COPD, CVA, Hyperlipidemia, Malignancy, Thyroid Disfunction Renal/ Medical History: Denies: Hx Peritoneal Dialysis GI Medical History: Reports: Hx Gastroesophageal Reflux Disease, Hx Hepatitis - hep c Psychiatric Medical History: Reports: Hx Attention Deficit Hyperactivity Disorder Infectious Medical History: Reports: Hx Hepatitis - hep c Past Surgical History: Reports: Hx Oral Surgery - Immunizations Immunizations up to date: No Hx Diphtheria, Pertussis, Tetanus Vaccination: No Physical Exam - Vital signs Vitals: Temp Pulse Resp BP Pulse Ox 97.8 F 118 H 26 H 147/101 H 96 12/14/18 21:43 12/14/18 21:43 12/14/18 21:43 12/14/18 21:43 12/14/18 21:43 Course - Re-evaluation Re-evalutation: 12/14/18 22:21 Vitals reviewed. Nursing notes reviewed. Patient appears very uncomfortable and is diaphoretic. His abdomen is tender with involuntary guarding in the epigastric region. He was given fentanyl, Zofran and started on IV fluids. X- ray does not show any free air in the abdomen. 12/15/18 00:09 Patient was reevaluated and has significant clinical improvement. His diaphoresis has completely resolved. His vital signs are stable. He does still have some tenderness in his epigastric region but is no longer guarding. CT scan shows debris in his abdomen hand patient states that he works at [employer] and was eating a large amount of pasta prior to coming to the ER, this is likely the finding in his abdomen. I did discuss his care with Dr. Carvajal given his clinical picture at presentation. Dr. Carvajal evaluated him in the emergency room and feels patient is stable for discharge. Patient does not have acute abdominal exam at this time or peritoneal signs. Patient was counseled on return precautions as well as follow-up. He is stable at discharge. Laboratory 12/14/18 12/14/18 22:18 22:18 WBC 9.0 RBC 4.68 Hgb 13.8 Hct 40.5 MCV 87 MCH 29.5 MCHC 34.1 RDW 12.9 Plt Count 310 Seg Neutrophils % 55.4 Lymphocytes % 34.6 Monocytes % 7.3 Eosinophils % 2.1 Basophils % 0.6 Absolute Neutrophils 5.0 Absolute Lymphocytes 3.1 Absolute Monocytes 0.7 Absolute Eosinophils 0.2 Absolute Basophils 0.1 Sodium 141.1 Potassium 4.2 Chloride 103 Carbon Dioxide 30 Anion Gap 8 BUN 15 Creatinine 0.80 Est GFR ( Amer) > 60 Est GFR (Non-Af Amer) > 60 Glucose 98 Calcium 9.8 Total Bilirubin 0.3 Direct Bilirubin 0.2 Neonat Total Bilirubin Not Reportable Neonat Direct Bilirubin Not Reportable Neonat Indirect Bili Not Reportable AST 38 ALT 83 H Alkaline Phosphatase 66 Total Protein 7.4 Albumin 4.2 Lipase 85.2 Chest X-Ray 12/14/18 21:54 IMPRESSION: No acute cardiopulmonary abnormalities. copyright [address]- All Rights Reserved Abdomen/Pelvis CT 12/14/18 22:18 IMPRESSION: 1. Moderately distended stomach containing debris but without surrounding inflammatory changes. 2. Please note the gallbladder is contracted which limits evaluation. Consider gallbladder ultrasound if there is high clinical concern. - Vital Signs Vital signs: Temp Pulse Resp BP Pulse Ox 97.8 F 118 H 33 H 135/98 H 94 12/14/18 21:43 12/14/18 21:43 12/14/18 23:01 12/14/18 23:00 12/14/18 23:01 - Laboratory Result Diagrams: 12/14/18 22:18 12/14/18 22:18 Laboratory results interpreted by me: 12/14/18 22:18 ALT 83 H Discharge - Discharge Clinical Impression: Abdominal pain, epigastric Condition: Stable Disposition: HOME, SELF-CARE Instructions: Abdominal Pain ([facility]) Additional Instructions: Please return to the emergency department if you have any worsening, or concern of your symptoms. Please return to the emergency department if you develop chest pain, difficulty breathing, severe abdominal pain, or ongoing vomiting. Please follow-up with your primary care physician in 2-3 days and any other recommended physicians. If prescribed, take all medications as directed. If you have any questions or concerns do not hesitate to return the emergency de partment for evaluation. Prescriptions: Omeprazole 40 mg PO DAILY #30 capsule. Referrals: [facility] [Provider Group] - Follow up as needed
[2018-12-14 22:34] LABS: ABSOLUTE BASOPHILS # (AUTO) 0.1 10^3/uL (0.0-0.2); ABSOLUTE EOSINOPHILS # (AUTO) 0.2 10^3/uL (0.0-0.6); ABSOLUTE LYMPHOCYTES (AUTO) 3.1 10^3/uL (0.5-4.7); ABSOLUTE MONOCYTES (AUTO) 0.7 10^3/uL (0.1-1.4); BASOPHILS % (AUTO) 0.6 % (0-2); EOSINOPHILS % (AUTO) 2.1 % (0-6); HEMATOCRIT 40.5 % (37.9-51.0); HEMOGLOBIN 13.8 g/dL (13.5-17.0); LYMPHOCYTES % (AUTO) 34.6 % (13-45); MEAN CORPUSCULAR HEMOGLOBIN 29.5 pg (27.0-33.4); MEAN CORPUSCULAR HGB CONC 34.1 g/dL (32.0-36.0); MEAN CORPUSCULAR VOLUME 87 fl (80-97); MONOCYTES % (AUTO) 7.3 % (3-13); PLATELET COUNT 310 10^3/uL (150-450); RED BLOOD COUNT 4.68 10^6/uL (4.35-5.55); RED CELL DISTRIBUTION WIDTH 12.9 % (11.5-14.0); SEGMENTED NEUTROPHILS % (AUTO) 55.4 % (42-78); TOTAL CELLS COUNTED % (AUTO) 100 %
[2018-12-14] MEDS ORDERED: FENTANYL CITRATE INJ/PF 100 MCG/2 ML AMPUL ONE (22:36)
[2018-12-14 22:50] LABS: ALANINE AMINOTRANSFERASE 83 U/L (21-72); ALBUMIN 4.2 g/dL (3.5-5.0); ALKALINE PHOSPHATASE 66 U/L (38-126); ANION GAP 8 (5-19); ASPARTATE AMINO TRANSFERASE 38 U/L (17-59); BILIRUBIN,DIRECT 0.2 mg/dL (0.0-0.4); BILIRUBIN,TOTAL 0.3 mg/dL (0.2-1.3); BLOOD UREA NITROGEN 15 mg/dL (7-20); CALCIUM 9.8 mg/dL (8.4-10.2); CARBON DIOXIDE 30 mmol/L (22-30); CHLORIDE 103 mmol/L (98-107); GLUCOSE 98 mg/dL (75-110); LIPASE 85.2 U/L (23-300); POTASSIUM 4.2 mmol/L (3.6-5.0); SODIUM 141.1 mmol/L (137-145); TOTAL PROTEIN 7.4 g/dL (6.3-8.2)
--- NOTE | 2018-12-14 22:55 | RADIOLOGY REPORT (SQ) ---
CT ABDOMEN PELVIS WITH IV CONTRAST HISTORY: Epigastric pain. COMPARISON: None. TECHNIQUE: CT scan of the abdomen and pelvis was performed with IV contrast. This exam was performed according to our departmental dose-optimization program, which includes automated exposure control, adjustment of the mA and/or kV according to patient size and/or use of iterative reconstruction technique. FINDINGS: The lung bases are clear. No pleural or pericardial effusions. There is no hiatal hernia. There is a 1 cm hypodensity in the right hepatic lobe which is too small to characterize. The gallbladder is contracted, limiting evaluation. The spleen, pancreas, adrenal glands, and kidneys are normal. The pelvic organs are also normal. The stomach is moderately distended with ingested material, without surrounding inflammatory changes. No small bowel obstruction. The appendix is normal. There is no evidence of diverticulitis. No intraperitoneal free fluid or free air is identified. The aorta is normal caliber. No acute osseous findings are appreciated. IMPRESSION: 1. Moderately distended stomach containing debris but without surrounding inflammatory changes. 2. Please note the gallbladder is contracted which limits evaluation. Consider gallbladder ultrasound if there is high clinical concern.
[2018-12-15 00:37] VITALS: BP 131/85
--- NOTE | 2018-12-17 08:03 | CONSULTATION REPORT E ---
Consultation Report NAME: JARETH MOREJON : 1990 AGE: 28Y DATE: TO: JEB QUICK M.D. FROM: Dr. HaleE. Andreina HENNESSY, Requesting Physician CHIEF COMPLAINT: Acute abdominal pain. The patient is a 27-year-old, white male who presented to the emergency department via ground rescue complaining of acute onset abdominal pain, following an intense episode of sneezing after eating multiple [employer] shells at [employer], where he works. He came to the emergency department complaining of intense abdominal pain and thought it was his hiatal hernia. He was initially tachycardic and hypertensive. He was given pain medication with relief. He underwent a CT scan of the abdomen and pelvis without oral contrast, which showed undigested food versus debris in the stomach. Otherwise, unremarkable CT scan. Surgery was consulted. PAST MEDICAL HISTORY: 1. Attention deficit disorder. 2. Substance abuse. 3. Suicidal ideation. 4. Hepatitis C. PAST SURGICAL HISTORY: None. ALLERGIES: None known. MEDICATIONS: None. SOCIAL HISTORY: The patient acknowledges smoking and taking marijuana. FAMILY HISTORY: Noncontributory. REVIEW OF SYSTEMS: As per HPI. All other systems negative. PHYSICAL EXAMINATION: GENERAL: The patient is examined in room 15 in the emergency department. He did receive 150 mcg of fentanyl and is quite awake, alert, and communicative. He was alert and oriented x4. NEUROLOGIC: Grossly intact in upper and lower extremities. HEAD: Normocephalic, atraumatic. NECK: No adenopathy. LUNGS: Diminished at the bases bilaterally. HEART: Without murmur or gallop. ABDOMEN: Flat. There is some epigastric tenderness, but no peritoneal signs. There is minimal guarding to deep palpation. EXTREMITIES: Upper and lower extremities without gross deformity. The remainder of examination is unremarkable. LABORATORY PROFILE: Shows a normal CBC, normal electrolytes, no toxicology performed, urinalysis not performed. Independent interpretation of the CT scan of the abdomen and pelvis shows retained food versus other structures in the stomach lumen. No free air or free fluid; study limited due to absence of oral contrast. IMPRESSION: Acute abdominal pain following ingestion of a large meal, now clinically improved; cannot rule out a foreign body ingestion based on CT scan findings. RECOMMENDATIONS: 1. The patient does not have an acute abdomen and there is no indication for surgical exploration or further evaluation. 2. I suggest the patient be observed in the emergency department, permitted to pass the food bolus out of the stomach into the lower portions of the GI tract. 3. No indication for a followup with Surgery unless clinically indicated. Please reconsult if necessary. DICTATING PHYSICIAN: JEB QUICK M.D. [id number] PHY#: [id number] ID: [id number] JOB#: [id number] ACCT: [id number] cc:JEB QUICK M.D. > MTDD
== END 2018-12-15 00:39 | disposition home or self-care (01) ==
LOC: ER 21:38
DX: R10.13 Epigastric pain (principal); R06.7 Sneezing; R11.0 Nausea; R61 Generalized hyperhidrosis; R06.82 Tachypnea, not elsewhere classified; R00.0 Tachycardia, unspecified; R10.817 Generalized abdominal tenderness; F17.200 Nicotine dependence, unspecified, uncomplicated; Z87.19 Personal history of other diseases of the digestive system
CPT/HCPCS: 99284; 96361; 96374; 96375; 36415; 83690; 85025; 80053; 71046; 74177; J3010; J2405; J7030

== ENCOUNTER 2018-12-23 10:17 | Emergency (ER) | payer SELFPAY ==
[2018-12-23] MEDS ORDERED: LIDOCAINE 2% VISCOUS SOLN 20 ML UDCUP PO ONE (10:33)
[2018-12-23] MEDS ORDERED: METOCLOPRAMIDE HCL ORAL SOLN 10 MG/10 ML UDCUP PO ONE (10:33)
[2018-12-23] MEDS ORDERED: MAG HYDROX/AL HYDROX/SIMETH SUSP 30 ML UDCUP PO ONE (10:33)
--- NOTE | 2018-12-23 10:39 | ER Document Report ---
ED General - General Chief Complaint: Abdominal Pain Stated Complaint: ABDOMINAL PAIN Time Seen by Provider: 12/23/18 10:25 Mode of Arrival: Ambulatory Information source: Patient Notes: Patient presents to the emergency department with complaints of trouble sleeping chest pain related to his hiatal hernia. Patient reports that he is trying to get the hernia fixed but needs to be declined for Medicaid so someone will do the surgery on him. He reports that he has been taking Zantac and Prilosec. Also reports he eats his last meal at 5pm. But he has found himself waking up at night with epigastric pain radiating to his chest. He has been having trouble sleeping even though is been taking melatonin. He denies other symptoms such as fever vomiting diarrhea. TRAVEL OUTSIDE OF THE [place] IN LAST 30 DAYS: No - HPI Onset: Other Onset/Duration: Persistent, Waxing and waning Quality of pain: Burning Severity: Mild Pain Level: 1 Associated symptoms: None Exacerbated by: Denies Relieved by: Denies Similar symptoms previously: Yes Recently seen / treated by doctor: Yes - Related Data Allergies/Adverse Reactions: No Known Allergies Allergy (Verified 12/23/18 10:19) Past Medical History - General Information source: Patient - Social History Smoking Status: Current Every Day Smoker Chew tobacco use (# tins/day): No Frequency of alcohol use: None Drug Abuse: Marijuana Occupation: [employer] Lives with: Friend Family History: DM, Hypertension. denies: Arthritis, CAD, COPD, CVA, Hyperlipidemia, Malignancy, Thyroid Disfunction Patient has suicidal ideation: No Patient has homicidal ideation: No Renal/ Medical History: Denies: Hx Peritoneal Dialysis GI Medical History: Reports: Hx Gastroesophageal Reflux Disease, Hx Hepatitis - hep c, Other - h,hernia Psychiatric Medical History: Reports: Hx Attention Deficit Hyperactivity Disorder Infectious Medical History: Reports: Hx Hepatitis - hep c Past Surgical History: Reports: Hx Oral Surgery - Immunizations Immunizations up to date: No Hx Diphtheria, Pertussis, Tetanus Vaccination: No Review of Systems - Review of Systems Notes: Review HPI for review of systems., All other systems negative Physical Exam - Vital signs Vitals: Temp Pulse Resp BP Pulse Ox 97.7 F 66 14 112/75 100 12/23/18 10:23 12/23/18 10:23 12/23/18 10:23 12/23/18 10:23 12/23/18 10:23 - Notes Notes: PHYSICAL EXAMINATION: GENERAL: Well-appearing and in no acute distress HEAD: Atraumatic, normocephalic. EYES: Pupils equal round , extraocular movements intact, sclera anicteric, conjunctiva are normal. ENT: nares patent, oropharynx clear without exudates. Moist mucous membranes. NECK: Normal range of motion, supple without lymphadenopathy LUNGS: CTAB and equal. No wheezes rales or rhonchi. HEART: Regular rate and rhythm without murmurs ABDOMEN: Soft, no tenderness. No guarding, no rebound EXTREMITIES: Normal range of motion, no pitting edema. No cyanosis. NEUROLOGICAL: Cranial nerves grossly intact. Normal sensory/motor exams. PSYCH: Normal mood, normal affect. SKIN: Warm, Dry, normal turgor, no rashes or lesions noted Course - Re-evaluation Re-evalutation: 12/23/18 11:41 Report he is feeling better. Discussed EKG sinus rhythm no changes chest x-ray negative. Patient instructed follow-up with GI. Return for concerns he verb alized understanding. - Vital Signs Vital signs: Temp Pulse Resp BP Pulse Ox 98.6 F 65 16 97/57 L 95 12/23/18 11:43 12/23/18 11:43 12/23/18 11:43 12/23/18 11:43 12/23/18 11:43 - Diagnostic Test Radiology reviewed: Image reviewed, Reports reviewed - EXAM DESCRIPTION: CHEST 2 VIEWS COMPLETED DATE/TIME: 12/23/2018 10:51 am REASON FOR STUDY: chest pain COMPARISON: 12/14/2018 EXAM PARAMETERS: NUMBER OF VIEWS: two views TECHNIQUE: Digital Frontal and Lateral radiographic views of the chest acquired. RADIATION DOSE: NA LIMITATIONS: none FINDINGS: LUNGS AND PLEURA: No opacities, masses or pneumothorax. No pleural effusion. MEDIASTINUM AND HILAR STRUCTURES: No masses or contour abnormalities. HEART AND VASCULAR STRUCTURES: Heart normal size. No evidence for failure. BONES: No acute findings. HARDWARE: None in the chest. OTHER: No other significant finding. IMPRESSION: NO ACUTE RADIOGRAPHIC FINDING IN THE CHEST. Discharge - Discharge Clinical Impression: Chest pain, Difficulty sleeping, History of hernia repair Condition: Stable Disposition: HOME, SELF-CARE Instructions: Chest Pain of Unclear Cause ([facility]), Hernia ([facility]) Additional Instructions: *You have been evaluated for chest pain, history of hernia, trouble sleeping *Avoid overeating, avoid spicy irritating foods, continue to eat hours before b edtime, continue to take your antacids *Follow up with a primary care or GI within one week *Return to ED for worsening condition, changes, needs *Return to ED if not better in 24 hours Forms: Return to Work
--- NOTE | 2018-12-23 11:17 | RADIOLOGY REPORT (SQ) ---
EXAM DESCRIPTION: CHEST 2 VIEWS COMPLETED DATE/TIME: 12/23/2018 10:51 am REASON FOR STUDY: chest pain COMPARISON: 12/14/2018 EXAM PARAMETERS: NUMBER OF VIEWS: two views TECHNIQUE: Digital Frontal and Lateral radiographic views of the chest acquired. RADIATION DOSE: NA LIMITATIONS: none FINDINGS: LUNGS AND PLEURA: No opacities, masses or pneumothorax. No pleural effusion. MEDIASTINUM AND HILAR STRUCTURES: No masses or contour abnormalities. HEART AND VASCULAR STRUCTURES: Heart normal size. No evidence for failure. BONES: No acute findings. HARDWARE: None in the chest. OTHER: No other significant finding. IMPRESSION: NO ACUTE RADIOGRAPHIC FINDING IN THE CHEST. TECHNICAL DOCUMENTATION: JOB ID: [id number] [employer]- All Rights Reserved Reading location - IP/workstation name: [email or web address]
[2018-12-23 11:46] VITALS: BP 97/57
--- NOTE | 2018-12-23 14:35 | EKG REPORT ---
SEVERITY:- NORMAL ECG - SINUS RHYTHM : Confirmed by: Marvin Magaña MD 23-Dec-2018 14:34:38
== END 2018-12-23 11:45 | disposition home or self-care (01) ==
LOC: ER 10:17
DX: R07.9 Chest pain, unspecified (principal); R10.9 Unspecified abdominal pain; Z79.899 Other long term (current) drug therapy; F17.200 Nicotine dependence, unspecified, uncomplicated
CPT/HCPCS: 93005; 99284; 71046; 93010; J3490

== ENCOUNTER 2018-12-26 15:43 | Emergency (ER) | payer SELFPAY ==
[2018-12-26] MEDS ORDERED: MAG HYDROX/AL HYDROX/SIMETH SUSP 30 ML UDCUP PO ONE (16:00)
[2018-12-26] MEDS ORDERED: LIDOCAINE 2% VISCOUS SOLN 20 ML UDCUP PO ONE (16:00)
[2018-12-26] MEDS ORDERED: METOCLOPRAMIDE HCL ORAL SOLN 10 MG/10 ML UDCUP PO ONE (16:00)
[2018-12-26] MEDS ORDERED: ASPIRIN 81 MG TABLET, CHEWABLE PO ONE (16:01)
--- NOTE | 2018-12-26 16:05 | ER Document Report ---
ED Medical Screen (RME) - General Chief Complaint: Chest Pain Stated Complaint: CHEST PAIN Time Seen by Provider: 12/26/18 15:58 Mode of Arrival: Ambulatory Information source: Patient Notes: 28-year-old male presented to ED for complaint of severe chest/epigastric pain that started about 2 PM today. He states he was at work when he dropped a tray on the table due to the pain. He states he last ate around noon when he ate a bowl of soup. He states he has a history of hiatal hernia hep C and reflux. He was seen a couple days ago and discharged home with instructions to follow-up with gastroenterology after similar symptoms. Patient states he does not have a doctor as yet but is looking for a carpet mechanic to follow-up with. TRAVEL OUTSIDE OF THE [place] 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 Allergies/Adverse Reactions: No Known Allergies Allergy (Verified 12/26/18 15:46) Past Medical History - Social History Family history: Reviewed & Not Pertinent Renal/ Medical History: Denies: Hx Peritoneal Dialysis GI Medical History: Reports: Hx Gastroesophageal Reflux Disease, Hx Hepatitis - hep c Psychiatric Medical History: Reports: Hx Attention Deficit Hyperactivity Disorder Infectious Medical History: Reports: Hx Hepatitis - hep c Past Surgical History: Reports: Hx Oral Surgery - Immunizations Immunizations up to date: No Hx Diphtheria, Pertussis, Tetanus Vaccination: No History of Influenza Vaccine for 05/2017 - 10/2017 Season: No Physical Exam - Vital signs Vitals: Temp Pulse Resp BP Pulse Ox 98.0 F 94 20 124/79 100 12/26/18 15:56 12/26/18 15:56 12/26/18 15:56 12/26/18 15:56 12/26/18 15:56 Course - Vital Signs Vital signs: Temp Pulse Resp BP Pulse Ox 98.0 F 94 20 124/79 100 12/26/18 15:56 12/26/18 15:56 12/26/18 15:56 12/26/18 15:56 12/26/18 15:56
[2018-12-26 16:35] LABS: ABSOLUTE BASOPHILS # (AUTO) 0.1 10^3/uL (0.0-0.2); ABSOLUTE EOSINOPHILS # (AUTO) 0.1 10^3/uL (0.0-0.6); ABSOLUTE LYMPHOCYTES (AUTO) 1.6 10^3/uL (0.5-4.7); ABSOLUTE MONOCYTES (AUTO) 0.5 10^3/uL (0.1-1.4); ABSOLUTE NEUT (AUTO) 2.6 10^3/uL (1.7-8.2); BASOPHILS % (AUTO) 1.1 % (0-2); EOSINOPHILS % (AUTO) 1.1 % (0-6); HEMATOCRIT 42.2 % (37.9-51.0); HEMOGLOBIN 14.6 g/dL (13.5-17.0); LYMPHOCYTES % (AUTO) 32.9 % (13-45); MEAN CORPUSCULAR HEMOGLOBIN 29.6 pg (27.0-33.4); MEAN CORPUSCULAR HGB CONC 34.5 g/dL (32.0-36.0); MEAN CORPUSCULAR VOLUME 86 fl (80-97); MONOCYTES % (AUTO) 10.5 % (3-13); PLATELET COUNT 290 10^3/uL (150-450); RED BLOOD COUNT 4.91 10^6/uL (4.35-5.55); RED CELL DISTRIBUTION WIDTH 12.9 % (11.5-14.0); SEGMENTED NEUTROPHILS % (AUTO) 54.4 % (42-78); TOTAL CELLS COUNTED % (AUTO) 100 %; WHITE BLOOD COUNT 4.9 10^3/uL (4.0-10.5)
[2018-12-26 16:53] LABS: ALANINE AMINOTRANSFERASE 114 U/L (21-72); ALBUMIN 4.2 g/dL (3.5-5.0); ALKALINE PHOSPHATASE 67 U/L (38-126); ANION GAP 8 (5-19); ASPARTATE AMINO TRANSFERASE 60 U/L (17-59); BILIRUBIN,DIRECT 0.3 mg/dL (0.0-0.4); BILIRUBIN,TOTAL 0.5 mg/dL (0.2-1.3); BLOOD UREA NITROGEN 11 mg/dL (7-20); CALCIUM 9.8 mg/dL (8.4-10.2); CARBON DIOXIDE 29 mmol/L (22-30); CHLORIDE 104 mmol/L (98-107); GLUCOSE 109 mg/dL (75-110); LIPASE 42.2 U/L (23-300); POTASSIUM 4.6 mmol/L (3.6-5.0); SODIUM 141.2 mmol/L (137-145); TOTAL PROTEIN 7.7 g/dL (6.3-8.2)
[2018-12-26 17:05] LABS: TROPONIN I < 0.012 ng/mL
--- NOTE | 2018-12-26 17:08 | RADIOLOGY REPORT (SQ) ---
EXAM DESCRIPTION: CHEST 2 VIEWS COMPLETED DATE/TIME: 12/26/2018 4:33 pm REASON FOR STUDY: chest epigastric pain COMPARISON: 12/23/2018 EXAM PARAMETERS: NUMBER OF VIEWS: two views TECHNIQUE: Digital Frontal and Lateral radiographic views of the chest acquired. RADIATION DOSE: NA LIMITATIONS: none FINDINGS: LUNGS AND PLEURA: No opacities, masses or pneumothorax. No pleural effusion. MEDIASTINUM AND HILAR STRUCTURES: No masses or contour abnormalities. HEART AND VASCULAR STRUCTURES: Heart normal size. No evidence for failure. BONES: No acute findings. HARDWARE: None in the chest. OTHER: No other significant finding. IMPRESSION: NO ACUTE RADIOGRAPHIC FINDING IN THE CHEST. TECHNICAL DOCUMENTATION: JOB ID: [id number] [employer]- All Rights Reserved Reading location - IP/workstation name: [email or web address]
[2018-12-26] MEDS ORDERED: DICYCLOMINE HCL 20 MG TABLET PO ONE (17:21)
--- NOTE | 2018-12-26 17:31 | RADIOLOGY REPORT (SQ) ---
EXAM DESCRIPTION: U/S ABDOMEN LIMITED W/O DOP COMPLETED DATE/TIME: 12/26/2018 5:18 pm REASON FOR STUDY: chest epigastric pain COMPARISON: 04/16/2018 TECHNIQUE: Dynamic and static grayscale images acquired of the abdomen and recorded on PACS. Additio nal selected color Doppler and spectral images recorded. LIMITATIONS: None. FINDINGS: PANCREAS: No masses. Visualized pancreatic duct normal caliber. LIVER: Normal size Echo texture normal. No focal masses. LIVER VASCULATURE: Normal directional flow of the main portal vein and hepatic veins. GALLBLADDER: No stones. Normal wall thickness. No pericholecystic fluid. ULTRASOUND-DETECTED PACHECO'S SIGN: Negative. INTRAHEPATIC DUCTS AND COMMON DUCT: CBD and intrahepatic ducts normal caliber. No filling defects. INFERIOR VENA CAVA: Normal flow. AORTA: No aneurysm. RIGHT KIDNEY: Normal size. Normal echogenicity. No solid or suspicious masses. No hydronephros is. No calcifications. PERITONEAL AND RIGHT PLEURAL SPACE: No ascites or effusions. OTHER: No other significant findings. IMPRESSION: NORMAL RIGHT UPPER QUADRANT ULTRASOUND VISUALIZED. TECHNICAL DOCUMENTATION: JOB ID: [id number] [employer]- All Rights Reserved Reading location - IP/workstation name: [email or web address]
--- NOTE | 2018-12-26 18:00 | ER Document Report ---
ED General - General Chief Complaint: Chest Pain Stated Complaint: CHEST PAIN Time Seen by Provider: 12/26/18 15:58 Mode of Arrival: Ambulatory Notes: Patient is complaining of pain in the abdomen off and on for several weeks. Couple of these episodes have been so bad he feels like he almost passed out. Today, he is especially complaining of pain in the epigastrium and into the lower esophageal region. Patient says the discomfort is worse when he is lifting something or when he is exerting himself. 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 Patient says he has been experiencing dizziness and nearly passing out a couple of times. He was seen here just a few days ago with a normal work-up and advised to follow-up with a foreign trade teacher. Patient says he is unable to afford a foreign trade teacher at this time. He has been nauseated but not vomiting. Has had some diarrhea intermittently. Diagnosed in the past with a hiatal hernia. Also diagnosed with GERD for which he takes Prilosec. Patient says he has a history of panic attacks. Says he is under a lot of stress, more than usual. Has a history of hepatitis C. TRAVEL OUTSIDE OF THE [place] IN LAST 30 DAYS: No - Related Data Allergies/Adverse Reactions: No Known Allergies Allergy (Verified 12/26/18 15:46) Past Medical History - General Information source: Patient - Social History Smoking Status: Current Some Day Smoker Chew tobacco use (# tins/day): No Frequency of alcohol use: Social Drug Abuse: None Family History: Reviewed & Not Pertinent, DM, Hypertension. denies: Arthritis, CAD, COPD, CVA, Hyperlipidemia, Malignancy, Thyroid Disfunction Patient has suicidal ideation: No Patient has homicidal ideation: No - Past Medical History Cardiac Medical History: Denies: Hx Coronary Artery Disease, Hx DVT GI Medical History: Reports: Hx Gastroesophageal Reflux Disease, Hx Hepatitis - hep c Psychiatric Medical History: Reports: Hx Anxiety, Hx Attention Deficit Hyperactivity Disorder, Other - Panic attacks Infectious Medical History: Reports: Hx Hepatitis - hep c Past Surgical History: Reports: Hx Oral Surgery - Immunizations Immunizations up to date: No Hx Diphtheria, Pertussis, Tetanus Vaccination: No Review of Systems - Review of Systems Notes: REVIEW OF SYSTEMS: CONSTITUTIONAL : Denies fever. Appears to be in pain. Frown on his face. Holding his lower anterior mid chest and epigastric region. EENT: Denies eye, ear, nose or mouth or throat pain or other symptoms. CARDIOVASCULAR: See HPI. RESPIRATORY: Denies cough, chest congestion, or shortness of breath. GASTROINTESTINAL: See HPI. GENITOURINARY: Denies difficulty or painful urinating, urinary frequency, blood in urine. MUSCULOSKELETAL: Denies back or neck pain. Denies joint pain or swelling. SKIN: Denies rash or skin lesions. NEUROLOGICAL: Denies LOC or altered mental status. Denies headache. Denies sensory loss or motor deficits. ALL OTHER SYSTEMS REVIEWED AND NEGATIVE. Physical Exam - Vital signs Vitals: Temp Pulse Resp BP Pulse Ox 98.0 F 94 20 124/79 100 12/26/18 15:56 12/26/18 15:56 12/26/18 15:56 12/26/18 15:56 12/26/18 15:56 Interpretation: Normal Notes: PHYSICAL EXAMINATION: GENERAL: : Appears to be in pain or discomfort. Frown present on his face. HEAD: Atraumatic, normocephalic. EYES: Pupils equal round and reactive to light, extraocular movements intact. ENT: oropharynx clear without exudates. Moist mucous membranes. NECK: Normal range of motion, supple. LUNGS: Breath sounds clear and equal bilaterally. HEART: Regular rate and rhythm without murmurs. ABDOMEN: Soft, tender in the epigastrium. No guarding and no rebound present. No tenderness in the lower abdomen bilaterally. BACK: No tenderness throughout entire back. EXTREMITIES: Normal range of motion without pain. NEUROLOGICAL: Normal speech, normal gait. Normal sensory, motor, and reflex exams. Awake, alert, and oriented x3. Cranial nerves normal. PSYCH: Normal mood, normal affect. SKIN: Warm, dry, no rashes. Course - Re-evaluation Re-evalutation: 12/26/18 18:02 Lab tests are all normal except for very minimal elevation of his LFTs. Likely has some relation to his hepatitis C. - Vital Signs Vital signs: Temp Pulse Resp BP Pulse Ox 98.0 F 94 20 124/79 100 12/26/18 15:56 12/26/18 15:56 12/26/18 15:56 12/26/18 15:56 12/26/18 15:56 - Laboratory Result Diagrams: 12/26/18 16:24 12/26/18 16:24 Laboratory results interpreted by me: 12/26/18 16:24 AST 60 H ALT 114 H Discharge - Discharge Clinical Impression: Epigastric abdominal pain, Non-cardiac chest pain Condition: Stable Disposition: HOME, SELF-CARE Additional Instructions: ABDOMINAL PAIN: There are many causes of abdominal pain. Pain can mean a serious problem requiring surgery (such as appendicitis). It can also be an innocent problem grecia t goes away on its own (such as a viral infection). Often, time must pass to determine the cause of pain. The physician does not feel that hospitalization is necessary, at present. Things may change within the next 24 hours. Call the doctor or come back for re- examination if any problems occur, such as: (1) Pain that becomes more severe, steady, or becomes concentrated in one specific area. Also, pain that is more severe with movement or coughing. (2) Vomiting that persists or becomes more frequent. (3) Blood in the vomitus, urine, or bowel movements. Blood in the stool may have a tarry or black appearance. (4) Shaking chills or fever greater than 100 degrees F. (5) The abdomen becomes more distended or swollen. (6) Bowel movements cease. (7) Failure to improve as expected. NORMAL EXAM AND WORKUP: At this time, your examination and workup show no significant abnormality. No significant abnormal physical findings are noted. All laboratory, EKG, and imaging (x-ray, CT scans, ultrasound) studies that were ordered show no signifi cant abnormality. Although your examination and all studies that were ordered showed no significant abnormal finding, there are no examinations and no studies that are 100% accurate. There is always the possibility that some abnormality could exist and not be detected with physical examination or within the limits and capabilities of laboratory and other studies. You should return or follow up as you were instructed on your visit today for further evaluation if your symptoms do not resolve. ANTISPASMODICS: You have been given a prescription for an antispasmodic medicine. This type of drug is used to decrease cramping and pain in the intestines. It is also used to decrease secretion of internal fluids (such as stomach acid in ulcer disease or pancreatic juice in pancreas disease). This medicine may cause drowsiness, especially with the first dose. Do not operate machinery or drive until all side effects have resolved. Do not combine with alcohol. Other common side effects include dry mouth and eyes. In older persons, antispasmodics can occasionally cause urinary retention, constipation, or trouble focusing the eyes. Glaucoma may be worsened by this medicine. CHEST PAIN OF UNCLEAR CAUSE: The exact cause of your chest pain isn't clear. Fortunately, there is no evidence of a dangerous medical condition. Further testing may be required to find the source of the pain. Most often, we find that this pain is coming from the chest wall -- the muscles or rib joints in the chest. But chest pain can come from the lung and lung lining, the esophagus, the heart valves or heart lining, and even the stomach or gallbladder. Rest. Eat lightly until the pain is gone. We may prescribe medicine for pain and inflammation. You should call the physician immediately if the pain radiates to the shoulder, jaw or arms; if you start to run a fever or develop a cough; or if you develop shortness of breath, or other new or alarming symptoms. NORMAL EXAM AND WORKUP: At this time, your examination and workup show no significant abnormality. No significant abnormal physical findings were noted. All laboratory, EKG, and imaging (x-ray, CT scans, ultrasound) studies that were ordered show no significant abnormality. Although your examination and all studies that were ordered showed no significant abnormal finding, there are no examinations and no studies that are 100% accurate. There is always the possibility that some abnormality could exist and not be detected with physical examination or within the limits and capabilities of laboratory and other studies. You should return or follow up as you were instructed on your visit today for further evaluation if your symptoms do not resolve. ACID REFLUX DISEASE (GERD): Gastro-Esophageal Reflux Disease (GERD) is caused by stomach acid refluxing back up into the esophagus. The valve at the end of the esophagus may be weak. This is common in persons with a hiatal hernia. GERD symptoms can include indigestion, chest pain, heartburn, or food "sticking." Certain foods, alcohol, and aspirin can make GERD worse. Treatment depends on the severity. Usually, antacids or acid-suppressing medicines are used. When the esophagus is acutely inflamed, the physician will often prescribe membrane-protective drugs such as Carafate. Some patients benefit from medication such as Reglan that tightens the valve at the top of the stomach. Avoid those foods that bring on your symptoms. For many people, these foods are coffee, chocolate, onions, garlic, and carbonated drinks. Don't use alcohol, aspirin, caffeine, or tobacco. Don't eat late at night -- within 4 hours of bedtime. Don't over-eat. If necessary, elevate the head of your bed about 4 inches so that stomach acid will not roll up into your esophagus. Call the doctor if you develop severe chest pain, inability to swallow fluids, fever, or worsening symptoms. ANTACID THERAPY: You have been instructed to start antacid therapy. Antacids directly neutralize stomach acid. This is useful for acid irritation of the esophagus, gastritis, and ulcers. You should take two tablespoons of antacid one hour after each meal and three hours after each meal. If you are not eating, take the antacid every two hours. If you are using a concentrate (such as Maalox TC), use only one tab lespoon. Many antacids affect the bowels. The most common problem is diarrhea. In this case, a pure aluminum hydroxide antacid (such as AlternaGel) can be substituted for some or all doses. If the problem is constipation, add a teaspoon of Milk of Magnesia to each dose. Call the doctor if you experience continued diarrhea or constipation, or if you develop lightheadedness, bloody stool or vomitus, severe abdominal pain, or black stool. PRILOSEC (ACID PUMP INHIBITOR): Prilosec (omeprazole) is an acid-pump inhibitor. It blocks the secretion of hydrogen ions in the acid-producing cells of the stomach. Prilosec keeps your stomach from making acid. Take all medication as prescribed, even after the pain is gone. Regular antacids may be added as needed if you have symptoms while taking this medicine. There are usually no side effects from this medication. Contact your doctor if there is fever, rash, yellow skin color, increasing abdominal pain, weakness, or unusual bruising. Return at once if you develop lightheadedness, black or bloody stool, or bloody vomitus. Anxiety The physician feels that some of your health problems are being caused by anxiety. Anxiety affects your health in many ways. Anxiety alone can cause palpitations, sweats, chest pains, abdominal pains, shortness of breath, and headaches. It contributes to ulcer disease, high blood pressure, irritable bowel syndrome, and has been shown to cause flare-ups of many other diseases. Anxiety is not a simple disorder to treat. If the anxiety is due to recent life stresses, you may simply need time to "work through" the changes. If the anxiety is due to an underlying unhappiness with yourself or due to psychiatric disturbance, professional help will be needed. Your physician can refer you for further help if needed. Anti-anxiety medication is occasionally given if the stress is acute or if you are having trouble sleeping. Chronic or frequent use of these medications is not a good idea because the body becomes reliant on it, preventing you from dealing with life's normal stresses. Panic Attack The cause of panic attacks is unknown. Symptoms can include chest pain, shortness of breath, palpitations, sweats, and a sense of smothering or impending doom. In time, the panic attacks can lead to generalized anxiety and phobias. Because the symptoms can mimic heart attack, pulmonary embolism, and other serious diseases, the physician has evaluated you for these conditions. There is no evidence of a serious problem. An acute panic attack usually goes away by itself without treatment. A severe attack can be treated with medicine to calm you. Long-term, antidepressant medicines may help prevent attacks. Counselling can also be very beneficial in dealing with panic attacks. Panic attacks are less likely if you are getting regular exercise, proper diet, and plenty of sleep. It's normal for panic attacks to cause many frightening symptoms. However, you should call or return if your symptoms change significantly or if you are worsening. Benzodiazepines You have been given a benzodiazepine medication. Examples of this type of medicine include Valium, Xanax, Librium, Ativan, and Halcion. Benzodiazepines have many uses. Medications of this type are used for insomnia, anxiety, muscle spasms, seizures, and drug and alcohol withdrawal. You may become very drowsy when you first take the medication. You should not drive or operate machinery while under its effects. Do not combine the medication with alcohol, or with any other medication without talking to your doctor. Do not take if without specific instruction from your charge manager. Some benzodiazepines may have harmful interactions with oral antifungal medicines such as ketoconazole, itraconazole, and nefazodone. If you are taking an antifungal medicine, discuss this with your doctor before taking russell zodiazepines. FOLLOW-UP CARE: If you have been referred to a physician for follow-up care, call the physicians office for an appointment as you were instructed or within the next two days. If you experience worsening or a significant change in your symptoms, notify the physician immediately or return to the Emergency Department at any time for re-evaluation. Continue to try to see a local foreign trade teacher to further investigate your pains. Prescriptions: Dicyclomine HCl [Bentyl 20 mg Tablet] 40 mg PO QIDP PRN #50 tablet PRN Reason: Lorazepam [Ativan 1 mg Tablet] 1 mg PO QIDP PRN #15 tab PRN Reason:
[2018-12-26 18:22] VITALS: BP 109/56
--- NOTE | 2018-12-26 22:09 | EKG REPORT ---
SEVERITY:- NORMAL ECG - SINUS RHYTHM : Confirmed by: Marvin Magaña MD 26-Dec-2018 22:08:22
== END 2018-12-26 18:22 | disposition home or self-care (01) ==
LOC: ER 15:43
DX: K21.9 Gastro-esophageal reflux disease without esophagitis (principal); Z79.899 Other long term (current) drug therapy; R07.89 Other chest pain; R10.13 Epigastric pain; R42 Dizziness and giddiness; R11.0 Nausea; R19.7 Diarrhea, unspecified; F17.200 Nicotine dependence, unspecified, uncomplicated; R79.89 Other specified abnormal findings of blood chemistry
CPT/HCPCS: 93005; 99285; 36415; 82553; 83690; 85025; 80053; 84484; 71046; 76705; 93010; J3490 ×2

== ENCOUNTER 2018-12-28 07:04 | Emergency (ER) | payer SELFPAY ==
[2018-12-28] MEDS ORDERED: LIDOCAINE 2% VISCOUS SOLN 20 ML UDCUP PO ONE (08:32)
[2018-12-28] MEDS ORDERED: METOCLOPRAMIDE HCL ORAL SOLN 10 MG/10 ML UDCUP PO ONE (08:32)
[2018-12-28] MEDS ORDERED: MAG HYDROX/AL HYDROX/SIMETH SUSP 30 ML UDCUP PO ONE (08:32)
[2018-12-28] MEDS ORDERED: ONDANSETRON HCL INJ/PF 4 MG/2 ML SDV IV ONE (08:41)
--- NOTE | 2018-12-28 08:47 | ER Document Report ---
ED General - General Chief Complaint: Chest Pain Stated Complaint: CHEST PAIN Time Seen by Provider: 12/28/18 08:01 Notes: 28-year-old former but recent IV drug user presents to the emergency department for chest pain, back pain, vomiting since last night. He states he vomited and had sharp chest pain that radiated through to his back. Patient appears to be in acute distress and is diaphoretic. Denies fevers, chills, shortness of breath, headache or neck stiffness, confusion, complains of epigastric and right upper quadrant abdominal pain, denies any urinary symptoms. Patient has been seen here multiple times recently for the same chief complaint. TRAVEL OUTSIDE OF THE [place] IN LAST 30 DAYS: No - Related Data Allergies/Adverse Reactions: No Known Allergies Allergy (Verified 12/26/18 15:46) Past Medical History - Social History Smoking Status: Current Some Day Smoker Frequency of alcohol use: Social Drug Abuse: Marijuana Family History: Reviewed & Not Pertinent, DM, Hypertension. denies: Arthritis, CAD, COPD, CVA, Hyperlipidemia, Malignancy, Thyroid Disfunction Patient has suicidal ideation: No Patient has homicidal ideation: No - Past Medical History Cardiac Medical History: Denies: Hx Coronary Artery Disease, Hx DVT Renal/ Medical History: Denies: Hx Peritoneal Dialysis GI Medical History: Reports: Hx Gastroesophageal Reflux Disease, Hx Hepatitis - hep c Psychiatric Medical History: Reports: Hx Anxiety, Hx Attention Deficit Hyperactivity Disorder Infectious Medical History: Reports: Hx Hepatitis - hep c Past Surgical History: Reports: Hx Oral Surgery - Immunizations Immunizations up to date: No Hx Diphtheria, Pertussis, Tetanus Vaccination: No Review of Systems - Review of Systems Constitutional: See HPI Cardiovascular: See HPI Respiratory: See HPI Gastrointestinal: See HPI Genitourinary: See HPI Musculoskeletal: See HPI Neurological/Psychological: See HPI Physical Exam - Vital signs Vitals: Temp Pulse Resp BP Pulse Ox 98.1 F 106 H 16 132/90 H 95 12/28/18 07:14 12/28/18 07:14 12/28/18 07:14 12/28/18 07:14 12/28/18 07:14 - Notes Notes: PHYSICAL EXAMINATION: Reviewed vital signs and charting by RN GENERAL: Well-appearing, well-nourished and in acute distress and diaphoretic. HEAD: Atraumatic, normocephalic. No scalp deformity, depression, or crepitance. EYES: Pupils are 3 mm and equal/round, extraocular movements intact, sclera anicteric, conjunctiva are normal. NECK: Normal range of motion, supple without lymphadenopathy. LUNGS: Breath sounds present, equal, and clear to auscultation bilaterally. No wheezes, rales, or rhonchi. HEART: Regular rate and rhythm without murmurs, rubs, or gallops. 2+ peripheral pulses. Normal capillary refill. ABDOMEN: Soft, epigastric tenderness/right upper quadrant tenderness, nondistended. Normoactive bowel sounds. Voluntary guarding, no rebound. No masses appreciated. BACK: Normal contour, no midline tenderness. No CVAT rectal exam deferred. EXTREMITIES: Normal range of motion, no pitting or edema. No cyanosis. NEUROLOGICAL: No focal neurological deficits. Moves all extremities spontaneously and on command. PSYCH: Normal mood, normal affect. No suicidal thoughts/ideations. No homocidal thoughts/ideations. No hallucinations. SKIN: Warm, dry, normal turgor, no rashes or lesions noted. Course - Re-evaluation Re-evalutation: 12/28/18 08:47 And distress. Patient states she has not used heroin "in years" but was seen here in July 2018 for an intentional overdose. I have ordered some basic labs, lipase, will give him IV fluids, give him a GI cocktail, and ordered a right upper quadrant ultrasound. 12/28/18 12:29 Abdominal ultrasound completed and it was a normal result. No evidence of cholecystitis or common bile duct dilatation. All lab work is normal, lipase within normal limits. He did report relief from getting the fentanyl. At this time patient does have a negative work-up and he does have a recent CT abdomen pelvis which showed no abnormal pathology. EKG did not show any evidence of ischemia or STEMI. Troponin was negative. Just awaiting urine from patient at this time. 12/28/18 19:18 Urine was negative for UTI or for drug tox. Patient states he felt much much better. Is stable for discharge and wants to go home. Patient is in agreement with plan and has strict return precautions. - Vital Signs Vital signs: Temp Pulse Resp BP Pulse Ox 98.2 F 106 H 8 L 114/71 99 12/28/18 08:00 12/28/18 07:14 12/28/18 12:20 12/28/18 12:20 12/28/18 12:20 - Laboratory Result Diagrams: 12/28/18 07:50 12/28/18 07:50 Laboratory results interpreted by me: 12/28/18 12/28/18 07:50 12:45 AST 77 H ALT 111 H Urine Ketones TRACE H Urine Urobilinogen 2.0 H Discharge - Discharge Clinical Impression: Abdominal pain Qualifiers: Abdominal location: generalized Qualified Code(s): R10.84 - Generalized abdominal pain Condition: Good Disposition: HOME, SELF-CARE Instructions: Abdominal Pain ([facility]), Chest Wall Pain ([facility]) Additional Instructions: You have been seen in the Emergency Department (ED) for abdominal pain. Your evaluation did not identify a clear cause of your symptoms but was generally reassuring. Please follow up with your doctor as soon as possible regarding today's emergent visit and the symptoms that are bothering you. Return to the ED if your abdominal pain worsens or fails to improve, you develop bloody vomiting, bloody diarrhea, you are unable to tolerate fluids due to vomiting, fever greater than 101, or other symptoms that concern you. Forms: Return to Work
[2018-12-28] MEDS ORDERED: NORMAL SALINE 1000 ML 1,000 ML IV ONE (08:48)
[2018-12-28 08:55] LABS: ABSOLUTE BASOPHILS # (AUTO) 0.1 10^3/uL (0.0-0.2); ABSOLUTE MONOCYTES (AUTO) 0.8 10^3/uL (0.1-1.4); BASOPHILS % (AUTO) 0.7 % (0-2); EOSINOPHILS % (AUTO) 0.6 % (0-6); HEMATOCRIT 39.8 % (37.9-51.0); HEMOGLOBIN 13.7 g/dL (13.5-17.0); LYMPHOCYTES % (AUTO) 29.1 % (13-45); MEAN CORPUSCULAR HEMOGLOBIN 29.4 pg (27.0-33.4); MEAN CORPUSCULAR HGB CONC 34.5 g/dL (32.0-36.0); MEAN CORPUSCULAR VOLUME 85 fl (80-97); MONOCYTES % (AUTO) 11.9 % (3-13); PLATELET COUNT 265 10^3/uL (150-450); RED BLOOD COUNT 4.67 10^6/uL (4.35-5.55); SEGMENTED NEUTROPHILS % (AUTO) 57.7 % (42-78); TOTAL CELLS COUNTED % (AUTO) 100 %; WHITE BLOOD COUNT 6.9 10^3/uL (4.0-10.5)
[2018-12-28 09:16] LABS: ALANINE AMINOTRANSFERASE 111 U/L (21-72); ALBUMIN 4.3 g/dL (3.5-5.0); ALKALINE PHOSPHATASE 59 U/L (38-126); ANION GAP 12 (5-19); ASPARTATE AMINO TRANSFERASE 77 U/L (17-59); BILIRUBIN,DIRECT 0.4 mg/dL (0.0-0.4); BILIRUBIN,TOTAL 0.6 mg/dL (0.2-1.3); BLOOD UREA NITROGEN 16 mg/dL (7-20); CALCIUM 9.9 mg/dL (8.4-10.2); CARBON DIOXIDE 29 mmol/L (22-30); CHLORIDE 99 mmol/L (98-107); GLUCOSE 87 mg/dL (75-110); LIPASE 27.6 U/L (23-300); SODIUM 139.6 mmol/L (137-145)
[2018-12-28] MEDS ORDERED: FENTANYL CITRATE INJ/PF 100 MCG/2 ML AMPUL IV ONE (09:54)
--- NOTE | 2018-12-28 10:34 | RADIOLOGY REPORT (SQ) ---
EXAM DESCRIPTION: CHEST SINGLE VIEW COMPLETED DATE/TIME: 12/28/2018 10:22 am REASON FOR STUDY: chest pain COMPARISON: 12/26/2018 EXAM PARAMETERS: NUMBER OF VIEWS: One view. TECHNIQUE: Single frontal radiographic view of the chest acquired. RADIATION DOSE: NA LIMITATIONS: None. FINDINGS: LUNGS AND PLEURA: No opacities, masses or pneumothorax. No pleural effusion. MEDIASTINUM AND HILAR STRUCTURES: There is a semilunar paraspinous density on the right that is of un certain etiology. This is not seen on the earlier study. HEART AND VASCULAR STRUCTURES: Heart normal in size. Normal vasculature. BONES: No acute findings. HARDWARE: None in the chest. OTHER: No other significant finding. IMPRESSION: Right paraspinous density that appears to represent a new finding. Consider contrast CT for further evaluation. TECHNICAL DOCUMENTATION: JOB ID: [id number] [employer]- All Rights Reserved Reading location - IP/workstation name: [email or web address]
--- NOTE | 2018-12-28 12:17 | RADIOLOGY REPORT (SQ) ---
EXAM DESCRIPTION: U/S ABDOMEN LIMITED W/O DOP COMPLETED DATE/TIME: 12/28/2018 11:45 am REASON FOR STUDY: epigastric/RUQ pain COMPARISON: 12/26/2018 TECHNIQUE: Dynamic and static grayscale images acquired of the abdomen and recorded on PACS. David garcia selected color Doppler and spectral images recorded. LIMITATIONS: None. FINDINGS: PANCREAS: No masses. The tail was poorly seen. LIVER: 18 mm hemangioma. No troubling masses. Normal echotexture. LIVER VASCULATURE: Normal directional flow of the main portal vein and hepatic veins. GALLBLADDER: No stones. Normal wall thickness. No pericholecystic fluid. ULTRASOUND-DETECTED PACHECO'S SIGN: Negative. INTRAHEPATIC DUCTS AND COMMON DUCT: CBD and intrahepatic ducts normal caliber. No filling defects. INFERIOR VENA CAVA: Not imaged. AORTA: No aneurysm. RIGHT KIDNEY: Normal size, 9.1 cm. Normal echogenicity. No solid or suspicious masses. No hydronephr osis. No calcifications. PERITONEAL AND RIGHT PLEURAL SPACE: No ascites or effusions. OTHER: No other significant findings. IMPRESSION: NORMAL RIGHT UPPER QUADRANT ULTRASOUND. TECHNICAL DOCUMENTATION: JOB ID: [id number] [email or web address]- All Rights Reserved Reading location - IP/workstation name: [email or web address]
[2018-12-28] MEDS ORDERED: ONDANSETRON ODT 4 MG TAB (6 TAB/ER DISP) PO PRN (12:32)
[2018-12-28 12:38] VITALS: BP 114/71
[2018-12-28 12:59] LABS: APPEARANCE,URINE CLEAR; BILIRUBIN,URINE NEGATIVE (NEGATIVE); COLOR,URINE YELLOW; GLUCOSE, URINE NEGATIVE (NEGATIVE); KETONES,URINE TRACE mg/dL (NEGATIVE); LEUKOCYTE ESTERASE,URINE NEGATIVE (NEGATIVE); NITRITE,URINE NEGATIVE (NEGATIVE); PROTEIN,URINE NEGATIVE (NEGATIVE); URINE SPECIFIC GRAVITY 1.027
[2018-12-28 14:11] LABS: URINE AMPHETAMINES SCREEN NEGATIVE; URINE BARBITURATES SCREEN NEGATIVE; URINE BENZODIAZEPINES SCREEN NEGATIVE; URINE COCAINE SCREEN NEGATIVE; URINE METHADONE SCREEN NEGATIVE; URINE PHENCYCLIDINE SCREEN NEGATIVE
[2018-12-28 16:04] LABS: URINE MARIJUANA (THC) SCREEN NEGATIVE
--- NOTE | 2018-12-30 10:36 | EKG REPORT ---
SEVERITY:- BORDERLINE ECG - SINUS RHYTHM, SINUS ARRHYTHMIA : Confirmed by: Cali Garcia 30-Dec-2018 10:35:24
== END 2018-12-28 16:03 | disposition home or self-care (01) ==
LOC: ER 07:04
DX: R10.84 Generalized abdominal pain (principal); R07.9 Chest pain, unspecified; R11.10 Vomiting, unspecified; F17.200 Nicotine dependence, unspecified, uncomplicated; Z86.19 Personal history of other infectious and parasitic diseases
CPT/HCPCS: 93005; 99284; 96361; 96374; 96375; 36415; 83690; 85025; 80053; 81001; 84484; 80307; 71045; 76705; 93010; J3010; J3490; J2405; J7030

== ENCOUNTER 2019-01-06 10:16 | Emergency (ER) | payer SELFPAY ==
[2019-01-06] MEDS ORDERED: NORMAL SALINE 1000 ML 1,000 ML IV ONE (11:06)
[2019-01-06 11:36] LABS: ABSOLUTE BASOPHILS # (AUTO) 0.1 10^3/uL (0.0-0.2); ABSOLUTE EOSINOPHILS # (AUTO) 0.2 10^3/uL (0.0-0.6); ABSOLUTE LYMPHOCYTES (AUTO) 1.6 10^3/uL (0.5-4.7); ABSOLUTE MONOCYTES (AUTO) 0.5 10^3/uL (0.1-1.4); ABSOLUTE NEUT (AUTO) 2.7 10^3/uL (1.7-8.2); BASOPHILS % (AUTO) 1.1 % (0-2); EOSINOPHILS % (AUTO) 3.7 % (0-6); HEMATOCRIT 43.2 % (37.9-51.0); HEMOGLOBIN 14.8 g/dL (13.5-17.0); MEAN CORPUSCULAR HEMOGLOBIN 29.1 pg (27.0-33.4); MEAN CORPUSCULAR HGB CONC 34.2 g/dL (32.0-36.0); MEAN CORPUSCULAR VOLUME 85 fl (80-97); MONOCYTES % (AUTO) 10.6 % (3-13); PLATELET COUNT 315 10^3/uL (150-450); RED BLOOD COUNT 5.06 10^6/uL (4.35-5.55); RED CELL DISTRIBUTION WIDTH 13.1 % (11.5-14.0); SEGMENTED NEUTROPHILS % (AUTO) 53.6 % (42-78); TOTAL CELLS COUNTED % (AUTO) 100 %
[2019-01-06 11:40] LABS: APPEARANCE,URINE CLEAR; BILIRUBIN,URINE NEGATIVE (NEGATIVE); COLOR,URINE YELLOW; GLUCOSE, URINE NEGATIVE (NEGATIVE); KETONES,URINE NEGATIVE (NEGATIVE); LEUKOCYTE ESTERASE,URINE NEGATIVE (NEGATIVE); NITRITE,URINE NEGATIVE (NEGATIVE); PROTEIN,URINE NEGATIVE (NEGATIVE); URINE SPECIFIC GRAVITY 1.025; UROBILINOGEN,URINE NEGATIVE mg/dL (<2.0)
[2019-01-06 12:00] LABS: ALANINE AMINOTRANSFERASE 122 U/L (21-72); ALBUMIN 4.2 g/dL (3.5-5.0); ALKALINE PHOSPHATASE 69 U/L (38-126); ANION GAP 9 (5-19); ASPARTATE AMINO TRANSFERASE 64 U/L (17-59); BILIRUBIN,DIRECT 0.2 mg/dL (0.0-0.4); BILIRUBIN,TOTAL 0.7 mg/dL (0.2-1.3); BLOOD UREA NITROGEN 14 mg/dL (7-20); CALCIUM 9.8 mg/dL (8.4-10.2); CARBON DIOXIDE 31 mmol/L (22-30); CHLORIDE 102 mmol/L (98-107); GLUCOSE 91 mg/dL (75-110); POTASSIUM 4.9 mmol/L (3.6-5.0); SODIUM 142.4 mmol/L (137-145); TOTAL PROTEIN 7.3 g/dL (6.3-8.2)
--- NOTE | 2019-01-06 12:53 | ER Document Report ---
ED General - General Chief Complaint: Nausea/Vomiting Stated Complaint: VOMITING Time Seen by Provider: 01/06/19 11:10 TRAVEL OUTSIDE OF THE [place] IN LAST 30 DAYS: No - HPI Notes: Recent nausea, vomiting, diarrhea, abdominal pain. Symptoms started yesterday. He had multiple episodes of nonbloody, nonbilious emesis. He had 2-3 episodes of watery diarrhea early this morning. He called out of work yesterday. No known fevers or chills. He has some crampy abdominal pain which is now resolved. He is still urinating. Still keeping down fluids. - Related Data Allergies/Adverse Reactions: No Known Allergies Allergy (Verified 12/26/18 15:46) Past Medical History - General Information source: Patient - Social History Smoking Status: Current Some Day Smoker Chew tobacco use (# tins/day): No Frequency of alcohol use: Rare Drug Abuse: Marijuana Family History: Reviewed & Not Pertinent, DM, Hypertension. denies: Arthritis, CAD, COPD, CVA, Hyperlipidemia, Malignancy, Thyroid Disfunction Patient has suicidal ideation: No Patient has homicidal ideation: No - Past Medical History Cardiac Medical History: Denies: Hx Coronary Artery Disease, Hx DVT Renal/ Medical History: Denies: Hx Peritoneal Dialysis GI Medical History: Reports: Hx Gastroesophageal Reflux Disease, Hx Hepatitis - hep c Psychiatric Medical History: Reports: Hx Anxiety, Hx Attention Deficit Hyperactivity Disorder Infectious Medical History: Reports: Hx Hepatitis - hep c Past Surgical History: Reports: Hx Oral Surgery - Immunizations Immunizations up to date: No Hx Diphtheria, Pertussis, Tetanus Vaccination: No Review of Systems - Review of Systems Constitutional: No symptoms reported EENT: No symptoms reported Cardiovascular: No symptoms reported Respiratory: No symptoms reported Gastrointestinal: See HPI Genitourinary: No symptoms reported Male Genitourinary: No symptoms reported Musculoskeletal: No symptoms reported Skin: No symptoms reported Neurological/Psychological: No symptoms reported Physical Exam - Vital signs Vitals: Temp Pulse Resp BP Pulse Ox 97.5 F 59 L 16 110/65 94 01/06/19 10:32 01/06/19 10:32 01/06/19 10:32 01/06/19 10:32 01/06/19 10:32 - Notes Notes: Vital signs reviewed, please refer to chart. Head is normocephalic, atraumatic. Pupils equal round, reactive to light. Neck is supple without meningismus. Heart is regular rate and rhythm. Lungs are clear to auscultation bilaterally. Abdomen is soft, nontender, normoactive bowel sounds throughout. Extremities without cyanosis, clubbing. Posterior calves are nontender. Peripheral pulses are equal. Skin is warm and dry. Patient is awake, alert, neurological exam is nonfocal. Course - Re-evaluation Re-evalutation: 01/06/19 12:49 Patient presents emergency department for evaluation. He had laboratory inve stigations as ordered through triage. He was given IV fluids. The patient's abdominal exam is entirely nontender. He is feeling improved. He feels comfortable going home. We will send him home with antiemetics. He is given instructions to follow a bland diet, clear liquids only. We will send home with antiemetics. Return to the ED with worsening or new concerning symptoms. - Vital Signs Vital signs: Temp Pulse Resp BP Pulse Ox 97.5 F 59 L 16 110/65 94 01/06/19 10:32 01/06/19 10:32 01/06/19 10:32 01/06/19 10:32 01/06/19 10:32 - Laboratory Result Diagrams: 01/06/19 11:24 01/06/19 11:24 Laboratory results interpreted by me: 01/06/19 11:24 Carbon Dioxide 31 H AST 64 H ALT 122 H Discharge - Discharge Clinical Impression: Generalized abdominal pain Nausea and vomiting Qualifiers: Vomiting Intractability: non-intractable Diarrhea Qualifiers: Diarrhea type: presumed infectious Qualified Code(s): R19.7 - Diarrhea, unspecified Condition: Stable Disposition: HOME, SELF-CARE Instructions: Antinausea Medication ([facility]), Diarrhea, Nonspecific ([facility]), Vomiting ([facility]) Additional Instructions: Small, frequent sips of fluids. Clear liquids, advance slowly to bland diet. Follow-up with primary care this week. Return to the emergency department with worsening or new concerning symptoms.
[2019-01-06 13:02] VITALS: BP 104/65
== END 2019-01-06 13:02 | disposition home or self-care (01) ==
LOC: ER 10:16
DX: R11.2 Nausea with vomiting, unspecified (principal); R19.7 Diarrhea, unspecified; R10.84 Generalized abdominal pain; F17.200 Nicotine dependence, unspecified, uncomplicated; F12.10 Cannabis abuse, uncomplicated; Z87.19 Personal history of other diseases of the digestive system
CPT/HCPCS: 99284; 96360; 36415; 85025; 80053; 81001; J7030

== ENCOUNTER 2019-01-09 13:00 | Emergency (ER) | payer SELFPAY ==
--- NOTE | 2019-01-09 13:35 | ER Document Report ---
HPI - HPI Patient complains to provider of: R hand injury Time Seen by Provider: 01/09/19 13:22 Pain Level: 2 Context: 28-year-old male presents emergency department with chief complaint of a right hand injury. He states he was angry this morning and he punched a grill. He said he felt immediate pain and there was some swelling but he iced it and some of the swelling has gone down. He is able to give me a thumbs up, give me the okay sign, touch thumb to pinky, and can make a fist. He is able to move his wrist. There is no laceration or open wound. Patient does have pain and tenderness over the fourth and fifth MCPs. No other complaints. - REPRODUCTIVE Reproductive: DENIES: : Past Medical History - Social History Smoking Status: Unknown if Ever Smoked Family History: Reviewed & Not Pertinent, DM, Hypertension. denies: Arthritis, CAD, COPD, CVA, Hyperlipidemia, Malignancy, Thyroid Disfunction - Past Medical History Cardiac Medical History: Denies: Hx Coronary Artery Disease, Hx DVT Renal/ Medical History: Denies: Hx Peritoneal Dialysis GI Medical History: Reports: Hx Gastroesophageal Reflux Disease, Hx Hepatitis - hep c Psychiatric Medical History: Reports: Hx Anxiety, Hx Attention Deficit Hyperactivity Disorder Infectious Medical History: Reports: Hx Hepatitis - hep c Past Surgical History: Reports: Hx Oral Surgery - Immunizations Immunizations up to date: No Hx Diphtheria, Pertussis, Tetanus Vaccination: No Vertical Provider Document - CONSTITUTIONAL Notes: PHYSICAL EXAMINATION: Reviewed vital signs and charting by RN GENERAL: Alert, interacts well. No acute distress. HEAD: Normocephalic, atraumatic. EYES: Pupils equal, round. Extraocular movements intact. EXTREMITIES: Moves all 4 extremities spontaneously. No edema, No cyanosis. Tenderness to palpation over the fourth and fifth left MCPs. No abrasions, lacerations, ecchymosis, patient with good active range of motion and good strength to resistance of the third fourth and fifth fingers. PSYCH: Normal affect, normal mood. SKIN: Warm, dry, normal turgor. No rashes or lesions noted. - INFECTION CONTROL TRAVEL OUTSIDE OF THE [place] IN LAST 30 DAYS: No Course - Re-evaluation Re-evalutation: 01/09/19 13:32 Patient sustained a trauma injury to his right hand after punching a grill. Will order an x-ray to rule out fracture. Patient declined ibuprofen or Tylenol at this time. 01/09/19 14:27 X-ray negative for fracture dislocation. At this time because patient has good range of motion I do not feel it is necessary to put him in an Dawit wrap and he can manage conservatively and ice as needed. He can take Motrin 600 mg every 6 hours and/or Tylenol 1000 times every 6 hours for pain. Stable for discharge. Distal neurovascular exam. - Vital Signs Vital signs: Temp Pulse Resp BP Pulse Ox 97.6 F 87 16 106/74 97 01/09/19 13:13 01/09/19 13:13 01/09/19 13:13 01/09/19 13:13 01/09/19 13:13 Discharge - Discharge Clinical Impression: Injury of right hand Qualifiers: Encounter type: initial encounter Qualified Code(s): S69.91XA - Unspecified injury of right wrist, hand and finger(s), initial encounter Condition: Good Disposition: HOME, SELF-CARE Additional Instructions: You were seen in the emergency department this afternoon for a right hand injury. X-ray did not show any evidence of a fracture and because you have good range of motion and good use I do not feel that we need to put a splint on it at this time. You can wrap it up in an Dawit wrap if you want for comfort but again this is most likely a soft tissue injury. You can expect swelling for the next 24 to 36 hours and please continue to ice it for 20 minutes at a time every 2-3 hours. Please take Motrin 600 mill grams every 6 hours for pain and inflammation and/or Tylenol 1000 mg every 6 hours for pain. If your fingers start to turn blue, you are I am unable to feel a pulse in your wrist, you are unable to move your hand at all, or if any other concerning symptoms please merely return to the emergency department
--- NOTE | 2019-01-09 14:20 | RADIOLOGY REPORT (SQ) ---
EXAM DESCRIPTION: HAND RIGHT 3 VIEWS COMPLETED DATE/TIME: 01/09/2019 2:01 pm REASON FOR STUDY: injury MCP COMPARISON: None. EXAM PARAMETERS: NUMBER OF VIEWS: Three views. TECHNIQUE: AP, lateral and oblique radiographic images acquired of the right hand. LIMITATIONS: None. FINDINGS: MINERALIZATION: Normal. BONES: No acute fracture or dislocation. No worrisome bone lesions. JOINTS: No effusions. SOFT TISSUES: No soft tissue gas. No foreign body. OTHER: No other significant finding. IMPRESSION: NEGATIVE STUDY OF THE RIGHT HAND. NO RADIOGRAPHIC EVIDENCE OF ACUTE INJURY. TECHNICAL DOCUMENTATION: JOB ID: [id number] [employer]- All Rights Reserved Reading location - IP/workstation name: [email or web address]
[2019-01-09 14:47] VITALS: BP 122/71
== END 2019-01-09 14:47 | disposition home or self-care (01) ==
LOC: ER 13:00
DX: S69.91XA Unspecified injury of right wrist, hand and finger(s), initial encounter (principal); W22.09XA Striking against other stationary object, initial encounter; Z86.19 Personal history of other infectious and parasitic diseases
CPT/HCPCS: 99283

== ENCOUNTER 2019-02-10 16:05 | Emergency (ER) | payer SELFPAY ==
[2019-02-10 16:16] VITALS: BP 138/71
[2019-02-10] MEDS ORDERED: TETRACAINE HCL 0.5% OPH SOLN 4 ML OD ONE (17:30)
--- NOTE | 2019-02-10 17:54 | ER Document Report ---
HPI - HPI Patient complains to provider of: Left eye pain Time Seen by Provider: 02/10/19 17:06 Onset: Last week Onset/Duration: Persistent Quality of pain: Achy Pain Level: 4 Context: Patient presents complaining of left eye pain and redness for the past week. Patient reports some blurred vision for the past 3 to 4 days. Patient denies any use of glasses or contact lenses. Patient denies any known injury to the eye. Associated Symptoms: Other - Left eye redness and pain Exacerbated by: Denies Relieved by: Denies Similar symptoms previously: No Recently seen / treated by doctor: No - ROS ROS below otherwise negative: Yes Systems Reviewed and Negative: Yes All other systems reviewed and negative - CONSTITUTIONAL Constitutional: DENIES: Fever, Chills - EENT EENT: REPORTS: Eye problems - left eye - GASTROINTESTINAL Gastrointestinal: DENIES: Nausea, Patient vomiting - REPRODUCTIVE Reproductive: DENIES: : Past Medical History - General Information source: Patient - Social History Smoking Status: Current Some Day Smoker Smoking Education Provided: Yes Frequency of alcohol use: twice a week Drug Abuse: Marijuana Occupation: [employer] Family History: Reviewed & Not Pertinent, DM, Hypertension Patient has suicidal ideation: No Patient has homicidal ideation: No Renal/ Medical History: Denies: Hx Peritoneal Dialysis GI Medical History: Reports: Hx Gastroesophageal Reflux Disease, Hx Hepatitis - hep c, Hx Hiatal Hernia Psychiatric Medical History: Reports: Hx Anxiety, Hx Attention Deficit Hyperactivity Disorder Infectious Medical History: Reports: Hx Hepatitis - hep c Past Surgical History: Reports: Hx Oral Surgery - Immunizations Immunizations up to date: No Hx Diphtheria, Pertussis, Tetanus Vaccination: No Vertical Provider Document - CONSTITUTIONAL Agree With Documented VS: Yes Exam Limitations: No Limitations General Appearance: WD/WN, No Apparent Distress - INFECTION CONTROL TRAVEL OUTSIDE OF THE [place] IN LAST 30 DAYS: No - HEENT HEENT: Atraumatic, Normocephalic Notes: Mild injection noted to sclera of left eye, no purulent drainage. Perrl, extraocular movements intact. No corneal abrasion ulcer or foreign body or dendrite. Patient with 2 linear abrasions to sclera of left eye that coincided with the area of injection - NECK Neck: Normal Inspection - RESPIRATORY Respiratory: Breath Sounds Normal, No Respiratory Distress - CARDIOVASCULAR Cardiovascular: Regular Rate, Regular Rhythm - MUSCULOSKELETAL/EXTREMETIES Musculoskeletal/Extremeties: MAEW - NEURO Level of Consciousness: Awake, Alert, Appropriate Motor/Sensory: No Motor Deficit - DERM Integumentary: Warm, Dry, No Rash Course - Vital Signs Vital signs: Temp Pulse Resp BP Pulse Ox 98.5 F 91 16 138/71 H 96 02/10/19 16:15 02/10/19 16:15 02/10/19 16:15 02/10/19 16:15 02/10/19 16:15 Discharge - Discharge Clinical Impression: Abrasion of sclera of left eye Qualifiers: Encounter type: initial encounter Qualified Code(s): S05.8X2A - Other injuries of left eye and orbit, initial encounter Condition: Stable Disposition: HOME, SELF-CARE Instructions: Eye Injury ([facility]) Additional Instructions: Return immediately for any new or worsening symptoms Followup with ophthalmology for any persistent or worsening symptoms, call Friday for an appointment Prescriptions: Erythromycin Base [E-Mycin 0.5% Oph Ointment 3.5 gm] 1 applic LFT_EYE QID #1 tube Forms: Return to Work Referrals: [facility] [Provider Group] - Follow up as needed
== END 2019-02-10 18:17 | disposition home or self-care (01) ==
LOC: ER 16:05
DX: S05.8X2A Other injuries of left eye and orbit, initial encounter (principal); H57.12 Ocular pain, left eye; H53.8 Other visual disturbances; X58.XXXA Exposure to other specified factors, initial encounter; F17.200 Nicotine dependence, unspecified, uncomplicated
CPT/HCPCS: 99283; J3490

== ENCOUNTER 2019-03-28 12:21 | Emergency (ER) | payer SELFPAY ==
[2019-03-28] MEDS ORDERED: ONDANSETRON HCL INJ/PF 4 MG/2 ML SDV IV ONE ×2 (13:29→14:42)
[2019-03-28] MEDS ORDERED: NORMAL SALINE 1000 ML 1,000 ML IV ONE (13:29)
[2019-03-28] MEDS ORDERED: LIDOCAINE 2% VISCOUS SOLN 20 ML UDCUP PO ONE (13:30)
[2019-03-28] MEDS ORDERED: MAG HYDROX/AL HYDROX/SIMETH SUSP 30 ML UDCUP PO ONE (13:30)
--- NOTE | 2019-03-28 13:31 | ER Document Report ---
ED Medical Screen (RME) - General Chief Complaint: Abdominal Pain Stated Complaint: ABDOMINAL PAIN Time Seen by Provider: 03/28/19 13:25 Information source: Patient Notes: Patient presents complaining of left upper quadrant abdominal pain that radiates to left flank area. Patient states pain started yesterday. Patient does complain of nausea. Patient denies any vomiting diarrhea or urinary symptoms. Patient states he had pain with having a bowel movement today. Patient denies any problems with constipation. Patient complains of increased pain with deep inspiration. Patient also reports cough since yesterday. hx: GERD, hiatal hernia, anxiety I have greeted and performed a rapid initial assessment of this patient. A comprehensive ED assessment and evaluation of the patient, analysis of test results and completion of the medical decision making process will be conducted by additional ED providers. TRAVEL OUTSIDE OF THE [place] IN LAST 30 DAYS: No - Related Data Allergies/Adverse Reactions: No Known Allergies Allergy (Verified 03/28/19 12:21) Past Medical History - Social History Family history: Reviewed & Not Pertinent - Past Medical History Cardiac Medical History: Denies: Hx Coronary Artery Disease, Hx DVT Renal/ Medical History: Denies: Hx Peritoneal Dialysis GI Medical History: Reports: Hx Gastroesophageal Reflux Disease, Hx Hepatitis - hep c, Hx Hiatal Hernia Psychiatric Medical History: Reports: Hx Anxiety, Hx Attention Deficit Hyperactivity Disorder Infectious Medical History: Reports: Hx Hepatitis - hep c Past Surgical History: Reports: Hx Oral Surgery - Immunizations Immunizations up to date: No Hx Diphtheria, Pertussis, Tetanus Vaccination: No History of Influenza Vaccine for 05/2017 - 10/2017 Season: No Physical Exam - Vital signs Vitals: Temp Pulse Resp BP Pulse Ox 98.5 F 95 16 117/67 99 03/28/19 12:29 03/28/19 12:29 03/28/19 12:29 03/28/19 12:29 03/28/19 12:29 - Abdominal Tenderness: Tender - LUQ Course - Vital Signs Vital signs: Temp Pulse Resp BP Pulse Ox 98.5 F 95 16 117/67 99 03/28/19 12:29 03/28/19 12:29 03/28/19 12:29 03/28/19 12:29 03/28/19 12:29
[2019-03-28 13:58] LABS: APPEARANCE,URINE SLIGHTLY-CLOUDY; BILIRUBIN,URINE NEGATIVE (NEGATIVE); COLOR,URINE AMBER; GLUCOSE, URINE NEGATIVE (NEGATIVE); KETONES,URINE 80 mg/dL (NEGATIVE); LEUKOCYTE ESTERASE,URINE SMALL (NEGATIVE); NITRITE,URINE NEGATIVE (NEGATIVE); PROTEIN,URINE 30 mg/dL (NEGATIVE); URINE SPECIFIC GRAVITY 1.023
--- NOTE | 2019-03-28 14:12 | RADIOLOGY REPORT (SQ) ---
EXAM DESCRIPTION: ACUTE ABDOMEN SERIES COMPLETED DATE/TIME: 03/28/2019 1:57 pm REASON FOR STUDY: cough, LUQ pain COMPARISON: None. NUMBER OF VIEWS: Three views. TECHNIQUE: Frontal chest, supine abdomen and upright/decubitus abdomen radiographic images acquired. LIMITATIONS: None. FINDINGS: CHEST: Lungs clear of infiltrates. FREE AIR: None. No abnormal gas collections. BOWEL GAS PATTERN: Nonobstructive pattern. No dilated loops or air fluid levels. CALCIFICATIONS: No suspicious calcifications. HARDWARE: None in the abdomen. SOFT TISSUES: No gross mass or suggestion of organomegaly. BONES: No acute fracture. No worrisome bone lesions. OTHER: No other significant finding. IMPRESSION: NO RADIOGRAPHIC EVIDENCE FOR ACUTE ABDOMINAL DISEASE. TECHNICAL DOCUMENTATION: JOB ID: [id number] [employer]- All Rights Reserved Reading location - IP/workstation name: [email or web address]
[2019-03-28 14:13] LABS: URINE AMPHETAMINES SCREEN NEGATIVE; URINE BARBITURATES SCREEN NEGATIVE; URINE BENZODIAZEPINES SCREEN NEGATIVE; URINE COCAINE SCREEN NEGATIVE; URINE MARIJUANA (THC) SCREEN UNCONFIRMED POSITIVE; URINE METHADONE SCREEN NEGATIVE; URINE PHENCYCLIDINE SCREEN NEGATIVE
--- NOTE | 2019-03-28 14:23 | ER Document Report ---
HPI - HPI Patient complains to provider of: left sided abdominal pain Time Seen by Provider: 03/28/19 13:25 Quality of pain: Sharp Severity: Moderate Pain Level: 4 Context: 28 Yr old male pt with the listed pmh to include GERD, hiatal hernia, and anxiety, here for left upper quadrant abdominal pain and left flank pain for x 1 day. He has also had some nausea, hematuria, and frequency. No trauma or injury. no hx of diabetes or asthma. normal bms. no other Uti sx. no testicular pain/swelling, penile dc/rash/lesions, or concerns for stds. denies swelling or hx of hernias. no abd surgeries unless otherwise noted. no recent abx or steroids. hasn't taken anything for sx other than Zantac and Motrin. no hx of gb dz, pancreatitis, gi bleed, ulcers, ibs, or crohns. no hx of this before. no sick contacts. no uri sx. no rash. no excessive nsaid use or etoh. no recent illness. pain not worse with eating. denies changes in color or caliber of stool. no other associated sx. Similar symptoms previously: No Recently seen / treated by doctor: No - ROS Systems Reviewed and Negative: Yes All other systems reviewed and negative - To include 10 systems, unless mentioned in the hpi. - REPRODUCTIVE Reproductive: DENIES: : - DERM Skin Color: Normal, [place] Past Medical History - General Information source: Patient - Social History Smoking Status: Former Smoker Frequency of alcohol use: None Drug Abuse: Marijuana Family History: Reviewed & Not Pertinent, DM, Hypertension Patient has suicidal ideation: No Patient has homicidal ideation: No - Past Medical History Cardiac Medical History: Denies: Hx Coronary Artery Disease, Hx DVT Renal/ Medical History: Denies: Hx Peritoneal Dialysis GI Medical History: Reports: Hx Gastroesophageal Reflux Disease, Hx Hepatitis - hep c, Hx Hiatal Hernia Psychiatric Medical History: Reports: Hx Anxiety, Hx Attention Deficit Hyperact ivity Disorder Infectious Medical History: Reports: Hx Hepatitis - hep c Past Surgical History: Reports: Hx Oral Surgery - Immunizations Immunizations up to date: No Hx Diphtheria, Pertussis, Tetanus Vaccination: No Vertical Provider Document - CONSTITUTIONAL Agree With Documented VS: Yes Exam Limitations: No Limitations General Appearance: No Apparent Distress, Mild Distress Notes: >>>> PHYSICAL_EXAM: GENERAL_APPEARANCE: well_nourished, alert, cooperative, no_acute_distress, mild obvious_discomfort. Pleasant, young male, smiling, speaking in full sentences, easily sitting up, in no sign of pain or resp distress until he tries to move then he appears somewhat uncomfortable, nontoxic VITALS: reviewed, see vital signs table. HEAD: normocephalic. atraumatic. no georges signs. no raccoon eyes. EYES: PERRL, EOMI, (-)scleral icterus. NOSE: no_nasal_discharge. MOUTH: (-)decreased moisture. THROAT: no_tonsilar_inflammation/hypertrophy/exudate. no lymphadenopathy NECK: supple, no_neck_tenderness, full rom. full strength. no meningeal signs. BACK: no_back_tenderness. CHEST_WALL: no_chest_tenderness. LUNGS: no_wheezing, (-)accessory muscle use, good air exchange bilateral. HEART: normal_rate, normal_rhythm,, ABDOMEN: normal_BS, soft, abdomen-diffuse, mildly tender in the left upper quadrant, (-)guarding, (-)rebound, no distension or peritoneal signs. neg murphys. neg mcburneys. neg heel strike. neg obturator. neg psoas. neg rovsign. no cva tenderness on the right. Left CVA tenderness GENITALS: deferred by Patient RECTAL: deferred EXTREMITIES: strength 5/5 in all_extremities, good pulses in all_extremities, no_edema, no_swelling\tenderness. full rom. normal gait. brisk cap refill. 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 SKIN: warm, dry, good_color, no rash. no grossly visible overlying skin changes to suggest trauma unless otherwise noted. NEURO: motor_intact, sensory_intact. cranial nerves 2-12 intact, cerebellar fxn intact MENTAL_STATUS: normal_affect, speech_clear, oriented_X_3, responds_appropriately to questions. - INFECTION CONTROL TRAVEL OUTSIDE OF THE [place] IN LAST 30 DAYS: No Course - Re-evaluation Re-evalutation: 03/28/19 16:48 Pt here for left upper quadrant abdominal pain, left flank pain, hematuria, frequency, and nausea for 1 day. pt was also give some triage meds via [facility] which he states didn't help at all. Labs notable for mild leukocytosis and a UTI. Lactic acid is normal. Renal function is normal. Labs are otherwise unremarkable. Urine culture is pending. GC and Chlamydia were negative. CT abdomen pelvis without contrast did show some nonspecific inflammatory changes pararenally but was otherwise negative for anything acute per radiology reviewed by myself. Case discussed with ED attending, Dr. Bartolo marks who advised to give the patient Rocephin 1g IV and discharge with doxycycline which was done. Advised we will call with any results that require change in plan of care. He responded well to treatment here and is well-appearing. Nontoxic. Tolerating p.o. and pain control. I will discharge him with Doxy and Zofran. Advised sx care. Drink plenty of fluids. [id number] medication for pain. advised to f/u with pcp/urology in 1-2 days. return for any worsening symptoms. vss. well appearing. satting well on ra. neurononfocal. pt understands and agrees to plan. On reexam, pt improved with tx listed. remained stable. nontoxic. well appearing. pain controlled. tolerating po. requesting to go home. serial abd exams remain benign case discussed with ER Attending, Dr. joel marks, who directed and agrees with plan of care and advised no further workup indicated at this time and pt is stable for dc home with close f/u with pcp/specialist. Documentation achieved through voice recording which my lead to some occasional accidental typographical errors. Extensive efforts have been made to proof read documentation to make sure these are the least as possible. Category Date Time Status ACUTE ABDOMEN SERIES [RAD] Stat Exams 03/28/19 13:[address] ABD/PELVIS NO ORAL OR IV [CT] Stat Exams 03/28/19 14:42 Completed ADD ON [ADD ON TESTING BLD IN LAB] [CHEM] Stat Lab 03/28/19 13:34 Completed CBC WITH DIFF [HEME] Stat Lab 03/28/19 14:00 Completed [facility] PCR URINE INHOUSE [MO] Stat Lab 03/28/19 13:40 Completed COMPREHENSIVE METABOLIC PANEL [CHEM] Stat Lab 03/28/19 14:00 Completed LACTIC ACID SEPSIS [CHEM] Stat Lab 03/28/19 14:50 Completed LIPASE [CHEM] Stat Lab 03/28/19 14:00 Completed URINALYSIS [URIN] Stat Lab 03/28/19 13:34 Completed URINE CULTURE [MC] Stat Lab 03/28/19 13:34 Completed URINE DRUG SCREEN [CHEM] Stat Lab 03/28/19 13:34 Completed Ceftriaxone 1 gm/D5w RTU [Rocephin RTU 1 gm/D5w 50 ml Med 03/28/19 16:21 Discontinued Premix] 1 gm in 50 ml IV .STK-MED Ceftriaxone 1 gm/D5w RTU [Rocephin RTU 1 gm/D5w 50 ml Med 03/28/19 16:13 Discontinued Premix] 1 gm in 50 ml IV NOW Ketorolac Tromethamine [Toradol Inj/Pf 30 mg/1 ml Sdv] Med 03/28/19 14:43 Discontinued 30 mg IV NOW ONE Lidocaine HCl [Xylocaine 2% Viscous Soln 20 ml Udcup] Med 03/28/19 13:30 Discontinued 15 ml PO NOW ONE Mag Hydrox/Al Hydrox/Simeth [Maalox Plus Susp 30 Udcup] Med 03/28/19 13:30 Discontinued 30 ml PO NOW ONE Morphine Sulfate [Morphine 10 mg/ml Inj] Med 03/28/19 16:11 Discontinued 4 mg IV NOW ONE Normal Saline 1000 ml [NaCl 0.9% 1000 ml IV Soln] 1,000 Med 03/28/19 13:29 Discontinued ml IV BOLUS Ondansetron HCl/Pf [Zofran Inj/Pf 4 mg/2 ml Sdv] Med 03/28/19 14:42 Discontinu ed 4 mg IV NOW ONE Ondansetron HCl/Pf [Zofran Inj/Pf 4 mg/2 ml Sdv] Med 03/28/19 13:29 Disc ontinued 8 mg IV NOW ONE Promethazine HCl [Phenergan Inj 50 mg/1 ml Vial] Med 03/28/19 16:12 Discontinued 25 mg IM STAT ONE - Vital Signs Vital signs: Temp Pulse Resp BP Pulse Ox 98.5 F 95 16 117/67 99 03/28/19 12:29 03/28/19 12:29 03/28/19 12:29 03/28/19 12:29 03/28/19 12:29 Temp Pulse Pulse Resp BP BP Pulse Ox 03/28/19 16:00 98.5 F 74 18 122/76 99 03/28/19 12:29 98.5 F 95 16 117/67 99 - Laboratory Result Diagrams: 03/28/19 14:00 03/28/19 14:00 Laboratory results interpreted by me: 03/28/19 13:34 Urine Protein 30 H Urine Ketones 80 H Urine Blood SMALL H Urine Urobilinogen 2.0 H Ur Leukocyte Esterase SMALL H 03/28/19 16:49 Labs- Entire Visit 03/28/19 03/28/19 03/28/19 13:34 13:34 13:40 WBC RBC Hgb Hct MCV MCH MCHC RDW Plt Count Seg Neutrophils % Lymphocytes % Monocytes % Eosinophils % Basophils % Absolute Neutrophils Absolute Lymphocytes Absolute Monocytes Absolute Eosinophils Absolute Basophils Sodium Potassium Chloride Carbon Dioxide Anion Gap BUN Creatinine Est GFR ( Amer) Est GFR (Non-Af Amer) Glucose Lactic Acid Calcium Total Bilirubin Direct Bilirubin Neonat Total Bilirubin Neonat Direct Bilirubin Neonat Indirect Bili AST ALT Alkaline Phosphatase Total Protein Albumin Lipase Urine Color DORA Urine Appearance SLIGHTLY-CLOUDY Urine pH 6.0 Ur Specific [place] 1.023 Urine Protein 30 H Urine Glucose (UA) NEGATIVE Urine Ketones 80 H Urine Blood SMALL H Urine Nitrite NEGATIVE Urine Bilirubin NEGATIVE Urine Urobilinogen 2.0 H Ur Leukocyte Esterase SMALL H Urine WBC (Auto) 49 Urine RBC (Auto) 3 U Hyaline Cast (Auto) 1 Urine Bacteria (Auto) 3+ Urine Mucus (Auto) OCC Urine Ascorbic Acid NEGATIVE Urine Opiates Screen NEGATIVE Urine Methadone Screen NEGATIVE Ur Barbiturates Screen NEGATIVE Ur Phencyclidine Scrn NEGATIVE Ur Amphetamines Screen NEGATIVE U Benzodiazepines Scrn NEGATIVE Urine Cocaine Screen NEGATIVE U Marijuana (THC) Screen UNCONFIRMED POSITIVE Chlamydia DNA (PCR) NOT DETECTED N.gonorrhoeae DNA (PCR) NOT DETECTED 03/28/19 03/28/19 03/28/19 14:00 14:00 14:50 WBC 15.1 H RBC 5.12 Hgb 14.7 Hct 43.3 MCV 85 MCH 28.8 MCHC 34.0 RDW 14.3 H Plt Count 228 Seg Neutrophils % 77.8 Lymphocytes % 12.6 L Monocytes % 9.2 Eosinophils % 0.1 Basophils % 0.3 Absolute Neutrophils 11.8 H Absolute Lymphocytes 1.9 Absolute Monocytes 1.4 Absolute Eosinophils 0.0 Absolute Basophils 0.0 Sodium 136.9 L Potassium 3.4 L Chloride 98 Carbon Dioxide 27 Anion Gap 12 BUN 11 Creatinine 0.62 Est GFR ( Amer) > 60 Est GFR (Non-Af Amer) > 60 Glucose 99 Lactic Acid 1.0 Calcium 9.9 Total Bilirubin 1.2 Direct Bilirubin 0.4 Neonat Total Bilirubin Not Reportable Neonat Direct Bilirubin Not Reportable Neonat Indirect Bili Not Reportable AST 34 ALT 53 Alkaline Phosphatase 83 Total Protein 8.2 Albumin 4.5 Lipase 67.9 Urine Color Urine Appearance Urine pH Ur Specific [place] Urine Protein Urine Glucose (UA) Urine Ketones Urine Blood Urine Nitrite Urine Bilirubin Urine Urobilinogen Ur Leukocyte Esterase Urine WBC (Auto) Urine RBC (Auto) U Hyaline Cast (Auto) Urine Bacteria (Auto) Urine Mucus (Auto) Urine Ascorbic Acid Urine Opiates Screen Urine Methadone Screen Ur Barbiturates Screen Ur Phencyclidine Scrn Ur Amphetamines Screen U Benzodiazepines Scrn Urine Cocaine Screen U Marijuana (THC) Screen Chlamydia DNA (PCR) N.gonorrhoeae DNA (PCR) - Diagnostic Test Radiology reviewed: Image reviewed, Reports reviewed Radiology results interpreted by me: 03/28/19 16:49 Acute Abdomen Series 03/28/19 13:29 IMPRESSION: NO RADIOGRAPHIC EVIDENCE FOR ACUTE ABDOMINAL DISEASE. Abdomen/Pelvis CT 03/28/19 14:42 IMPRESSION: Mild inflammatory changes in the left upper quadrant -anterior pararenal space, nonspecific. Lower lobe subsegmental atelectasis, left greater than right. Trace left pleural effusion. No calcified urinary stones or obstruction identified. Discharge - Discharge Clinical Impression: Acute pyelonephritis, Nausea, Abnormal finding on CT scan Leukocytosis Qualifiers: Leukocytosis type: unspecified Qualified Code(s): D72.829 - Elevated white blood cell count, unspecified Abdominal pain Qualifiers: Abdominal location: left upper quadrant Qualified Code(s): R10.12 - Left upper quadrant pain Condition: Good Disposition: HOME, SELF-CARE Instructions: Pyelonephritis ([facility]) Additional Instructions: Follow-up with PCP/urology in 1 to 2 days. Return for any worsening symptoms. Drink plenty fluids. Take medication as prescribed. Tylenol or Motrin as needed for any pain. Prescriptions: Ondansetron HCl [Zofran 4 mg Tablet] 1 tab PO Q8HP PRN #14 tablet PRN Reason: For Nausea/Vomiting Doxycycline Hyclate 100 mg PO BID #14 capsule Forms: Return to Work Referrals: HEATHER PERRY MD [NO LOCAL MD] - Follow up in 3-5 days
[2019-03-28 14:28] LABS: ABSOLUTE LYMPHOCYTES (AUTO) 1.9 10^3/uL (0.5-4.7); ABSOLUTE MONOCYTES (AUTO) 1.4 10^3/uL (0.1-1.4); ABSOLUTE NEUT (AUTO) 11.8 10^3/uL (1.7-8.2); BASOPHILS % (AUTO) 0.3 % (0-2); EOSINOPHILS % (AUTO) 0.1 % (0-6); HEMATOCRIT 43.3 % (37.9-51.0); HEMOGLOBIN 14.7 g/dL (13.5-17.0); LYMPHOCYTES % (AUTO) 12.6 % (13-45); MEAN CORPUSCULAR HEMOGLOBIN 28.8 pg (27.0-33.4); MEAN CORPUSCULAR VOLUME 85 fl (80-97); MONOCYTES % (AUTO) 9.2 % (3-13); PLATELET COUNT 228 10^3/uL (150-450); RED BLOOD COUNT 5.12 10^6/uL (4.35-5.55); RED CELL DISTRIBUTION WIDTH 14.3 % (11.5-14.0); SEGMENTED NEUTROPHILS % (AUTO) 77.8 % (42-78); TOTAL CELLS COUNTED % (AUTO) 100 %; WHITE BLOOD COUNT 15.1 10^3/uL (4.0-10.5)
[2019-03-28 14:38] LABS: ALBUMIN 4.5 g/dL (3.5-5.0); ALKALINE PHOSPHATASE 83 U/L (38-126); ANION GAP 12 (5-19); ASPARTATE AMINO TRANSFERASE 34 U/L (17-59); BILIRUBIN,DIRECT 0.4 mg/dL (0.0-0.4); BILIRUBIN,TOTAL 1.2 mg/dL (0.2-1.3); BLOOD UREA NITROGEN 11 mg/dL (7-20); CALCIUM 9.9 mg/dL (8.4-10.2); CARBON DIOXIDE 27 mmol/L (22-30); CHLORIDE 98 mmol/L (98-107); GLUCOSE 99 mg/dL (75-110); POTASSIUM 3.4 mmol/L (3.6-5.0); TOTAL PROTEIN 8.2 g/dL (6.3-8.2)
[2019-03-28] MEDS ORDERED: KETOROLAC TROMETHAMINE INJ/PF 30 MG/1 ML SDV IV ONE (14:43)
--- NOTE | 2019-03-28 15:50 | RADIOLOGY REPORT (SQ) ---
EXAM DESCRIPTION: CT ABD/PELVIS NO ORAL OR IV COMPLETED DATE/TIME: 03/28/2019 3:12 pm REASON FOR STUDY: left flank pain, uti, pyelo, stone? COMPARISON: None. TECHNIQUE: CT scan of the abdomen and pelvis performed without intravenous or oral contrast. Images reviewed with lung, soft tissue, and bone windows. Reconstructed coronal and sagittal MPR images revi ewed. All images stored on PACS. All CT scanners at this facility use dose modulation, iterative reconstruction, and/or weight based d osing when appropriate to reduce radiation dose to as low as reasonably achievable (ALARA). [facility]: Dose Right [facility]: CareDose [facility]: Dose Right [facility]: Teradose 4D [facility]: [employer] RADIATION DOSE: CT Rad equipment meets quality standard of care and radiation dose reduction techniq ues were employed. CTDIvol: 5.2 mGy. DLP: 270 mGy-cm.mGy. LIMITATIONS: None. FINDINGS: LOWER CHEST: Lower lobe subsegmental atelectasis, left greater than right. Trace left ple ural effusion. NON-CONTRASTED LIVER, SPLEEN, ADRENALS: Mild inflammatory changes in the left upper quadrant -anteri or pararenal space. Evaluation limited by lack of IV contrast. No identified significant masses. PANCREAS: No masses. No peripancreatic inflammatory changes. GALLBLADDER: No calcified stones. No inflammatory changes to suggest cholecystitis. RIGHT KIDNEY AND URETER: No cysts identified. No solid masses. No calcified stones. No hydronephrosis or hydroureter. LEFT KIDNEY AND URETER: Mild inflammatory changes in the left upper quadrant -anterior pararenal spac e. No cysts identified. No solid masses. No calcified stones. No hydronephrosis or hydroureter. AORTA AND RETROPERITONEUM: No aneurysm. No retroperitoneal masses or adenopathy. BOWEL AND PERITONEAL CAVITY: No obvious masses or inflammatory changes. No free fluid. APPENDIX: Normal. PELVIS, BLADDER, AND ABDOMINAL WALL:No abnormal masses. No free fluid. Unremarkable bladder. BONES: No acute findings. OTHER: No other significant finding. IMPRESSION: Mild inflammatory changes in the left upper quadrant -anterior pararenal space, nonspec ific. Lower lobe subsegmental atelectasis, left greater than right. Trace left pleural effusion. No calcified urinary stones or obstruction identified. TECHNICAL DOCUMENTATION: JOB ID: [id number] [id number] Quality ID # [id number]: Final reports with documentation of one or more dose reduction techniques (e.g., Au tomated exposure control, adjustment of the mA and/or kV according to patient size, use of iterative reconstruction technique) 2010 [employer]- All Rights Reserved Reading location - IP/workstation name: [email or web address]
[2019-03-28 16:05] LABS: CHLAM PCR NOT DETECTED (NOT DETECT)
[2019-03-28] MEDS ORDERED: MORPHINE SULFATE 10 MG/ML INJ IV ONE (16:11)
[2019-03-28] MEDS ORDERED: PROMETHAZINE HCL INJ 50 MG/1 ML VIAL IM ONE (16:12)
[2019-03-28] MEDS ORDERED: CEFTRIAXONE 1 GM/D5W RTU 1 GM/50 ML RTUPB IV ONE ×2 (16:13→16:21)
[2019-03-28 16:38] VITALS: BP 122/76
== END 2019-03-28 17:20 | disposition home or self-care (01) ==
LOC: ER 12:21
DX: N10 Acute pyelonephritis (principal); D72.829 Elevated white blood cell count, unspecified; R11.0 Nausea; R10.9 Unspecified abdominal pain; R10.12 Left upper quadrant pain; R31.9 Hematuria, unspecified; R35.0 Frequency of micturition; J98.11 Atelectasis; J90 Pleural effusion, not elsewhere classified; Z87.891 Personal history of nicotine dependence
CPT/HCPCS: 99284; 96372; 96361; 96374; 96375; 36415; 87086; 83690; 85025; 87088; 80053; 81001; 87186; 80307; 87491; 87591; 83605; 74022; 74176; J3490; J1885; J2270; J2550; J2405; J7030; J0696

== ENCOUNTER 2019-04-05 06:37 | Emergency (ER) | payer SELFPAY ==
[2019-04-05] MEDS ORDERED: NORMAL SALINE 1000 ML 1,000 ML IV ONE (07:31)
--- NOTE | 2019-04-05 07:44 | ER Document Report ---
Entered by KACI GRULLON SCRIBE 04/05/19 0734 Acting as scribe for:GURWINDER MARCUM MD ED Syncope and Near Syncope - General Chief Complaint: Near Syncope Stated Complaint: SYNCOPAL EPISODE Time Seen by Provider: 04/05/19 07:11 Mode of Arrival: Ambulatory Information source: Patient Notes: Patient is a 28-year-old male who presents to the emergency department today with complaints of a near syncopal episode that occurred just prior to arrival. Patient states he had gotten up from sleep, used the bathroom, and when going to stand up from the toilet he felt lightheaded and like he was going to pass out. Patient states while going to the bathroom he had both a bowel movement and urination. Patient is on antibiotics for Klebsiella pyelonephritis from 03/28. Patient complains of intermittent nausea and headaches. TRAVEL OUTSIDE OF THE [place] IN LAST 30 DAYS: No - Related Data Allergies/Adverse Reactions: No Known Allergies Allergy (Verified 03/28/19 12:21) Past Medical History - General Information source: Patient - Social History Smoking Status: Former Smoker Cigarette use (# per day): No - "quit 2.5 weeks ago" Chew tobacco use (# tins/day): No Frequency of alcohol use: Occasional Drug Abuse: Marijuana Lives with: Family Family History: Reviewed & Not Pertinent, DM, Hypertension Patient has suicidal ideation: No Patient has homicidal ideation: No GI Medical History: Reports: Hx Gastroesophageal Reflux Disease, Hx Hepatitis - hep c, Hx Hiatal Hernia Psychiatric Medical History: Reports: Hx Anxiety, Hx Attention Deficit Hyperactivity Disorder Infectious Medical History: Reports: Hx Hepatitis - hep c Past Surgical History: Reports: Hx Oral Surgery - Immunizations Immunizations up to date: No Hx Diphtheria, Pertussis, Tetanus Vaccination: No Review of Systems - Review of Systems Constitutional: No symptoms reported EENT: No symptoms reported Cardiovascular: See HPI, Syncope, Dizziness, Lightheaded Respiratory: No symptoms reported Gastrointestinal: See HPI, Nausea Genitourinary: No symptoms reported Male Genitourinary: No symptoms reported Musculoskeletal: No symptoms reported Skin: No symptoms reported Hematologic/Lymphatic: No symptoms reported Neurological/Psychological: See HPI, Headaches -: Yes All other systems reviewed and negative Physical Exam - Vital signs Vitals: Temp Pulse Resp BP Pulse Ox 97.5 F 82 16 114/84 99 04/05/19 06:45 04/05/19 06:45 04/05/19 06:45 04/05/19 06:45 04/05/19 06:45 - Notes Notes: Physical Exam: General: Alert, appears well. HEENT: Normocephalic. Atraumatic. PERRL. Extraocular movements intact. Oropharynx clear. Neck: Supple. Non-tender. Respiratory: No respiratory distress. Clear and equal breath sounds bilaterally. Cardiovascular: Regular rate and rhythm. Abdominal: Normal Inspection. Non-tender. No distension. Normal Bowel Sounds. Back: No gross abnormalities. Extremities: Moves all four extremities. Upper extremities: Normal inspection. Normal ROM. Lower extremities: Normal inspection. No edema. Normal ROM. Neurological: Normal cognition. AAOx4. Normal speech. Psychological: Normal affect. Normal Mood. Skin: Warm. Dry. Normal color. Course - Vital Signs Vital signs: Temp Pulse Resp BP Pulse Ox 97.5 F 82 16 114/84 100 04/05/19 06:45 04/05/19 06:45 04/05/19 06:45 04/05/19 06:45 04/05/19 08:04 - Laboratory Result Diagrams: 04/05/19 07:55 04/05/19 07:55 Laboratory results interpreted by me: 04/05/19 04/05/19 07:55 07:55 RDW 14.6 H Carbon Dioxide 31 H Discharge - Discharge Clinical Impression: Syncope and collapse Condition: Stable Disposition: HOME, SELF-CARE Additional Instructions: Syncopal Episode Syncope (fainting or near-fainting) can occur from many different health problems. Or it can be a simple fainting spell requiring no treatment. It is safe for you to go home, but further evaluation will likely be necessary. Your work-up may include tests for internal bleeding, heart disease, medication problems, or near-strokes. Tests are not always required, however, depending on the nature of your problem. The warning signs of an impending faint include: dizziness, lighthea dedness, nausea, hot flashes, tingling, and weakness. If this happens, lay down and put your feet up, then wait until all of these symptoms have passed before standing up again. If these episodes become recurrent, or if you develop chest pain, heart palpitations, mental confusion, blurred vision, or headache, then you should call the physician, or go to the emergency room. Mariannaibe Attestation: 04/05/19 07:45 I personally performed the services described in the documentation, reviewed and edited the documentation which was dictated to the scribe in my presence, and it accurately records my words and actions. I personally performed the services described in the documentation, reviewed and edited the documentation which was dictated to the scribe in my presence, and it accurately records my words and actions.
--- NOTE | 2019-04-05 08:12 | RADIOLOGY REPORT (SQ) ---
EXAM DESCRIPTION: CHEST SINGLE VIEW COMPLETED DATE/TIME: 04/05/2019 7:46 am REASON FOR STUDY: Left pleuritic chest pain COMPARISON: 12/28/2018 EXAM PARAMETERS: NUMBER OF VIEWS: One view. TECHNIQUE: Single frontal radiographic view of the chest acquired. RADIATION DOSE: NA LIMITATIONS: None. FINDINGS: LUNGS AND PLEURA: No opacities, masses or pneumothorax. No pleural effusion. MEDIASTINUM AND HILAR STRUCTURES: No masses. Contour normal. HEART AND VASCULAR STRUCTURES: Heart normal in size. Normal vasculature. BONES: No acute findings. HARDWARE: None in the chest. OTHER: No other significant finding. IMPRESSION: NO ACUTE RADIOGRAPHIC FINDING IN THE CHEST. TECHNICAL DOCUMENTATION: JOB ID: [id number] [employer]- All Rights Reserved Reading location - IP/workstation name: [email or web address]
[2019-04-05 08:20] LABS: APPEARANCE,URINE CLEAR; BILIRUBIN,URINE NEGATIVE (NEGATIVE); COLOR,URINE STRAW; GLUCOSE, URINE NEGATIVE (NEGATIVE); KETONES,URINE NEGATIVE (NEGATIVE); LEUKOCYTE ESTERASE,URINE NEGATIVE (NEGATIVE); NITRITE,URINE NEGATIVE (NEGATIVE); PROTEIN,URINE NEGATIVE (NEGATIVE); URINE SPECIFIC GRAVITY 1.009; UROBILINOGEN,URINE NEGATIVE mg/dL (<2.0)
[2019-04-05 08:21] LABS: ABSOLUTE BASOPHILS # (AUTO) 0.1 10^3/uL (0.0-0.2); ABSOLUTE EOSINOPHILS # (AUTO) 0.2 10^3/uL (0.0-0.6); ABSOLUTE LYMPHOCYTES (AUTO) 2.1 10^3/uL (0.5-4.7); ABSOLUTE MONOCYTES (AUTO) 0.6 10^3/uL (0.1-1.4); ABSOLUTE NEUT (AUTO) 3.3 10^3/uL (1.7-8.2); BASOPHILS % (AUTO) 0.8 % (0-2); EOSINOPHILS % (AUTO) 3.9 % (0-6); HEMATOCRIT 42.1 % (37.9-51.0); HEMOGLOBIN 14.1 g/dL (13.5-17.0); LYMPHOCYTES % (AUTO) 32.9 % (13-45); MEAN CORPUSCULAR HEMOGLOBIN 28.8 pg (27.0-33.4); MEAN CORPUSCULAR HGB CONC 33.4 g/dL (32.0-36.0); MEAN CORPUSCULAR VOLUME 86 fl (80-97); MONOCYTES % (AUTO) 9.7 % (3-13); PLATELET COUNT 382 10^3/uL (150-450); RED BLOOD COUNT 4.89 10^6/uL (4.35-5.55); RED CELL DISTRIBUTION WIDTH 14.6 % (11.5-14.0); SEGMENTED NEUTROPHILS % (AUTO) 52.7 % (42-78); TOTAL CELLS COUNTED % (AUTO) 100 %; WHITE BLOOD COUNT 6.3 10^3/uL (4.0-10.5)
[2019-04-05 08:39] LABS: ALBUMIN 3.9 g/dL (3.5-5.0); ALKALINE PHOSPHATASE 74 U/L (38-126); ANION GAP 6 (5-19); ASPARTATE AMINO TRANSFERASE 50 U/L (17-59); BILIRUBIN,DIRECT 0.2 mg/dL (0.0-0.4); BILIRUBIN,TOTAL 0.2 mg/dL (0.2-1.3); BLOOD UREA NITROGEN 8 mg/dL (7-20); CALCIUM 9.6 mg/dL (8.4-10.2); CARBON DIOXIDE 31 mmol/L (22-30); CHLORIDE 101 mmol/L (98-107); GLUCOSE 95 mg/dL (75-110); POTASSIUM 4.5 mmol/L (3.6-5.0); TOTAL PROTEIN 7.1 g/dL (6.3-8.2)
[2019-04-05 09:08] VITALS: BP 142/88
--- NOTE | 2019-04-05 13:19 | EKG REPORT ---
SEVERITY:- NORMAL ECG - SINUS RHYTHM : Confirmed by: Marvin Magaña MD 05-Apr-2019 13:19:25
== END 2019-04-05 09:38 | disposition home or self-care (01) ==
LOC: ER 06:37
DX: R55 Syncope and collapse (principal); R42 Dizziness and giddiness; R11.0 Nausea; Z87.891 Personal history of nicotine dependence
CPT/HCPCS: 93005; 99284; 96360; 36415; 85025; 80053; 81001; 71045; 93010; J7030